=== PATIENT | male | born 1950 | race Caucasian/White ===

== ENCOUNTER → 2016-06-12 | Outpatient (REF) | payer MEDICARE ==
[~2016-06-12] MED LIST: FLUTISP; MULT1TAB8 PO; VITATAB74 PO
[2016-06-12 12:51] LABS: MEAN CORPUSCULAR HEMOGLOBIN 32.7 pg (27.0-33.0); MEAN CORPUSCULAR HGB CONC 33.4 g/dl (32.0-36.5); MEAN CORPUSCULAR VOLUME 97.8 fl (80.0-96.0); RED CELL DISTRIBUTION WIDTH 12.2 % (11.5-14.5); WHITE BLOOD COUNT 4.8 K/mm3 (4.0-10.0)
[2016-06-12 13:08] LABS: FOLATE > 24.0 NG/ML; VITAMIN B12 LEVEL 412 PG/ML
[2016-06-12 13:21] LABS: ALBUMIN 3.8 GM/DL (3.2-5.2); ALBUMIN/GLOBULIN RATIO 1.31 (1.00-1.93); ALKALINE PHOSPHATASE 105 U/L (45-117); ALT/SGPT 37 U/L (12-78); ANION GAP 10 MEQ/L (8-16); AST/SGOT 30 U/L (15-37); BILIRUBIN,TOTAL 0.7 MG/DL (0.2-1.0); BLOOD UREA NITROGEN 16 MG/DL (7-18); CALCIUM LEVEL 8.5 MG/DL (8.8-10.2); CARBON DIOXIDE LEVEL 28 MEQ/L (21-32); CHLORIDE LEVEL 104 MEQ/L (98-107); CHOLESTEROL LEVEL 174 MG/DL (<200); GLOMERULAR FILTRATION RATE > 60.0 (>49); GLUCOSE, FASTING 95 MG/DL (80-110); POTASSIUM SERUM 4.1 MEQ/L (3.5-5.1); SODIUM LEVEL 142 MEQ/L (136-145); TOTAL PROTEIN 6.7 GM/DL (6.4-8.2); TRIGLYCERIDES LEVEL 47 MG/DL (<150)
== END ==
LOC: M SFHCPLAZ 08:10
PROVIDERS: ATTEND Internal Medicine
DX: Z00.00 Encounter for general adult medical examination without abnormal findings (principal); Z98.84 Bariatric surgery status

== ENCOUNTER → 2017-06-13 | Outpatient (REF) | payer MEDICARE ==
[2017-06-13 12:22] LABS: HEMATOCRIT 41.6 % (42.0-52.0); HEMOGLOBIN 13.8 g/dl (14.0-18.0); MEAN CORPUSCULAR HEMOGLOBIN 32.4 pg (27.0-33.0); MEAN CORPUSCULAR HGB CONC 33.2 g/dl (32.0-36.5); MEAN CORPUSCULAR VOLUME 97.7 fl (80.0-96.0); PLATELET COUNT, AUTOMATED 332 10^3/uL (150-450); RED BLOOD COUNT 4.26 10^6/uL (4.30-6.10); RED CELL DISTRIBUTION WIDTH 12.2 % (11.5-14.5); WHITE BLOOD COUNT 6.4 10^3/uL (4.0-10.0)
[2017-06-13 12:50] LABS: ALKALINE PHOSPHATASE 107 U/L (45-117); ALT/SGPT 33 U/L (12-78); ANION GAP 8 MEQ/L (8-16); AST/SGOT 25 U/L (7-37); BILIRUBIN,TOTAL 0.7 MG/DL (0.2-1.0); BLOOD UREA NITROGEN 11 MG/DL (7-18); CALCIUM LEVEL 8.8 MG/DL (8.8-10.2); CARBON DIOXIDE LEVEL 30 MEQ/L (21-32); CHLORIDE LEVEL 101 MEQ/L (98-107); CHOLESTEROL LEVEL 152 MG/DL (<200); CREATININE FOR GFR 0.78 MG/DL (0.70-1.30); GLOMERULAR FILTRATION RATE > 60.0 (>49); GLUCOSE, FASTING 81 MG/DL (70-100); POTASSIUM SERUM 3.9 MEQ/L (3.5-5.1); SODIUM LEVEL 139 MEQ/L (136-145); TRIGLYCERIDES LEVEL 51 MG/DL (<150)
[2017-06-13 12:51] LABS: ALBUMIN 4.1 GM/DL (3.2-5.2); ALBUMIN/GLOBULIN RATIO 1.28 (1.00-1.93); CHOLESTEROL RISK RATIO 2.763 (<5); HDL CHOLESTEROL 55 MG/DL (>40); LDL CHOLESTEROL 86.8 MG/DL (<100); NON-HDL-C 97 MG/DL; TOTAL PROTEIN 7.3 GM/DL (6.4-8.2)
[2017-06-13 12:57] LABS: TOTAL 25(OH) VITAMIN D 34.6 NG/ML (30.0-100.0); VITAMIN B12 LEVEL 809 PG/ML
[2017-06-13 12:59] LABS: FOLATE > 24.0 NG/ML
== END ==
LOC: M SFHCPLAZ 07:50
DX: Z98.84 Bariatric surgery status (principal); E66.3 Overweight
CPT/HCPCS: 82746

== ENCOUNTER → 2018-06-25 | Outpatient (REF) | payer MEDICARE ==
[2018-06-25 10:43] LABS: HEMATOCRIT 41.2 % (42.0-52.0); HEMOGLOBIN 13.6 g/dl (13.5-17.5); MEAN CORPUSCULAR HEMOGLOBIN 31.9 pg (27.0-33.0); MEAN CORPUSCULAR VOLUME 96.5 fl (80.0-96.0); PLATELET COUNT, AUTOMATED 295 10^3/uL (150-450); RED BLOOD COUNT 4.27 10^6/uL (4.30-6.10); WHITE BLOOD COUNT 5.3 10^3/uL (4.0-10.0)
[2018-06-25 10:52] LABS: ALBUMIN 3.8 GM/DL (3.2-5.2); ALT/SGPT 29 U/L (12-78); BILIRUBIN,TOTAL 0.7 MG/DL (0.2-1.0); BLOOD UREA NITROGEN 14 MG/DL (7-18); CALCIUM LEVEL 8.8 MG/DL (8.8-10.2); CARBON DIOXIDE LEVEL 28 MEQ/L (21-32); CHLORIDE LEVEL 104 MEQ/L (98-107); CHOLESTEROL LEVEL 160 MG/DL (<200); CHOLESTEROL RISK RATIO 2.622 (<5); CREATININE FOR GFR 0.82 MG/DL (0.70-1.30); GLOMERULAR FILTRATION RATE > 60.0 (>49); GLUCOSE, FASTING 96 MG/DL (70-100); HDL CHOLESTEROL 61 MG/DL (>40); LDL CHOLESTEROL 91 MG/DL (<100); NON-HDL-C 99 MG/DL; POTASSIUM SERUM 4.2 MEQ/L (3.5-5.1); SODIUM LEVEL 140 MEQ/L (136-145); TOTAL 25(OH) VITAMIN D 40.8 NG/ML (30.0-100.0); TRIGLYCERIDES LEVEL 39 MG/DL (<150)
== END ==
LOC: M SFHCPLAZ 07:51
PROVIDERS: ATTEND Internal Medicine
DX: Z00.00 Encounter for general adult medical examination without abnormal findings (principal); Z98.84 Bariatric surgery status; E66.3 Overweight; E07.9 Disorder of thyroid, unspecified

== ENCOUNTER → 2019-06-25 | Outpatient (REF) | payer MEDICARE ==
[~2019-06-25] MED LIST changes: +FLUT50SP17; -FLUTISP
[2019-06-25 10:07] LABS: HEMATOCRIT 44.5 % (42.0-52.0); HEMOGLOBIN 14.8 g/dl (13.5-17.5); MEAN CORPUSCULAR HEMOGLOBIN 32.6 pg (27.0-33.0); MEAN CORPUSCULAR HGB CONC 33.3 g/dl (32.0-36.5); PLATELET COUNT, AUTOMATED 317 10^3/uL (150-450); RED BLOOD COUNT 4.54 10^6/uL (4.30-6.10); WHITE BLOOD COUNT 5.8 10^3/uL (4.0-10.0)
[2019-06-25 10:42] LABS: ALBUMIN 3.6 GM/DL (3.2-5.2); ALT/SGPT 30 U/L (12-78); BILIRUBIN,TOTAL 0.6 MG/DL (0.2-1.0); BLOOD UREA NITROGEN 12 MG/DL (7-18); CALCIUM LEVEL 8.7 MG/DL (8.8-10.2); CARBON DIOXIDE LEVEL 27 MEQ/L (21-32); CHLORIDE LEVEL 107 MEQ/L (98-107); CHOLESTEROL LEVEL 188 MG/DL (<200); CHOLESTEROL RISK RATIO 3.186 (<5); GLOMERULAR FILTRATION RATE > 60.0 (>49); GLUCOSE, FASTING 110 MG/DL (70-100); HDL CHOLESTEROL 59 MG/DL (>40); LDL CHOLESTEROL 116 MG/DL (<100); NON-HDL-C 129 MG/DL; SODIUM LEVEL 140 MEQ/L (136-145); TOTAL PROTEIN 7.1 GM/DL (6.4-8.2); TRIGLYCERIDES LEVEL 63 MG/DL (<150)
[2019-06-25 10:47] LABS: TOTAL 25(OH) VITAMIN D 41.4 NG/ML (30.0-100.0)
[2019-06-25 10:48] LABS: VITAMIN B12 LEVEL 410 PG/ML
[2019-06-25 10:49] LABS: FOLATE > 24.0 NG/ML
== END ==
LOC: M SFHCPLAZ 07:56
PROVIDERS: ATTEND Internal Medicine
DX: Z12.5 Encounter for screening for malignant neoplasm of prostate (principal); Z98.84 Bariatric surgery status; Z79.899 Other long term (current) drug therapy
CPT/HCPCS: 80053; 80061; 82306; 82607; 82746; 85027; G0103

== ENCOUNTER → 2020-06-12 | Outpatient (REF) | payer MEDICARE ==
[2020-06-12 10:20] LABS: HEMATOCRIT 45.2 % (42.0-52.0); HEMOGLOBIN 14.9 g/dl (13.5-17.5); MEAN CORPUSCULAR HEMOGLOBIN 31.8 pg (27.0-33.0); MEAN CORPUSCULAR VOLUME 96.6 fl (80.0-96.0); PLATELET COUNT, AUTOMATED 330 10^3/uL (150-450); RED BLOOD COUNT 4.68 10^6/uL (4.30-6.10); WHITE BLOOD COUNT 8.3 10^3/uL (4.0-10.0)
[2020-06-12 10:50] LABS: ALBUMIN 3.9 GM/DL (3.2-5.2); ALT/SGPT 31 U/L (12-78); BILIRUBIN,TOTAL 0.7 MG/DL (0.2-1.0); BLOOD UREA NITROGEN 15 MG/DL (7-18); CALCIUM LEVEL 9.1 MG/DL (8.8-10.2); CARBON DIOXIDE LEVEL 29 MEQ/L (21-32); CHLORIDE LEVEL 104 MEQ/L (98-107); CHOLESTEROL LEVEL 175 MG/DL (<200); CHOLESTEROL RISK RATIO 2.777 (<5); CREATININE FOR GFR 0.74 MG/DL (0.70-1.30); GLOMERULAR FILTRATION RATE > 60.0 (>42); GLUCOSE, FASTING 98 MG/DL (70-100); HDL CHOLESTEROL 63 MG/DL (>40); LDL CHOLESTEROL 102 MG/DL (<100); NON-HDL-C 112 MG/DL; SODIUM LEVEL 138 MEQ/L (136-145); TOTAL PROTEIN 7.3 GM/DL (6.4-8.2); TRIGLYCERIDES LEVEL 51 MG/DL (<150)
== END ==
LOC: M PLALAB 08:10
PROVIDERS: ATTEND Internal Medicine
DX: Z00.00 Encounter for general adult medical examination without abnormal findings (principal); Z98.84 Bariatric surgery status; Z11.59 Encounter for screening for other viral diseases
CPT/HCPCS: 36415; 80053; 80061; 85027; G0472

== ENCOUNTER 2021-01-04 10:53 | Inpatient (IN) | payer MEDICARE ==
[~2021-01-04] VITALS: Ht 167.6 cm; Wt 112.0 kg
[2021-01-04 11:31] LABS: BASO % 0.5 % (0.0-1.0); EOS # 0.2 10^3/uL (0.0-0.5); EOS % 2.5 % (0.0-3.0); HEMATOCRIT 45.9 % (42.0-52.0); HEMOGLOBIN 15.5 g/dl (13.5-17.5); LYMPH # 1.2 10^3/uL (1.5-5.0); LYMPH % 18.4 % (24.0-44.0); MEAN CORPUSCULAR HEMOGLOBIN 31.7 pg (27.0-33.0); MEAN CORPUSCULAR HGB CONC 33.8 g/dl (32.0-36.5); MEAN CORPUSCULAR VOLUME 93.9 fl (80.0-96.0); MONO # 0.8 10^3/uL (0.0-0.8); MONO % 12.4 % (2.0-8.0); NEUTROPHILS # 4.3 10^3/uL (1.5-8.5); NEUTROPHILS % 65.9 % (36.0-66.0); RED BLOOD COUNT 4.89 10^6/uL (4.30-6.10); WHITE BLOOD COUNT 6.5 10^3/uL (4.0-10.0)
--- NOTE | 2021-01-04 11:37 | REP ---
INDICATION: CHEST PAIN. COMPARISON: No comparison chest x-ray is available. TECHNIQUE: Portable upright AP chest radiograph. FINDINGS: There is a dextroconvex curvature in the thoracic spine. There is extensive pleuroparenchymal opacity in the left base obscuring the left diaphragm. There is blunting of the left lateral pleural angle. Pleural effusion and some atelectasis suspected. Right lung appears essentially clear. The heart is enlarged pulmonary vasculature is cephalized. The aortic knob is demonstrates an interval calcification which may be displaced. This raises the question of aortic dissection/aneurysm.. No acute bony abnormality. IMPRESSION: Left pleural effusion probably with atelectasis in the left lower lobe. Cardiomegaly with vascular congestion. Question displaced interval calcification in the aortic knob, rule out aortic dissection. Recommend CT aortic angiography. Critical Findings: The critical information above was relayed directly by me by telephone to Deon Welch on 01/04/2021 at 11:32 am with readback verification. <Electronically signed by Dinesh Angeles > 01/04/21 2256
[2021-01-04] MEDS ORDERED: ISOVUE-370 76% 100ML VIAL As Ordered ONE (11:40)
--- NOTE | 2021-01-04 12:14 | REP ---
INDICATION: r/o TAA. COMPARISON: Comparison is made with today's portable chest x-ray. TECHNIQUE: Contrast dose: 100 ML of Isovue [address] technique: Helical scanning is acquired and overlapping 1.5 mm and contiguous 3 mm axial images are reformatted. In addition, maximum intensity projection and multiplanar re-formation images are generated in sagittal and coronal imaging projections. FINDINGS: There is good opacification of the thoracic aorta and there is no evidence of dissection or aneurysm. Similarly, the pulmonary arterial tree is well opacified and there is no evidence of filling defect to suggest pulmonary embolus. There is no evidence of right pleural effusion. There is however a infiltrate in the right upper lobe. There are patchy ground-glass densities in the right lower lobe as well. There is a moderate left pleural effusion in there is atelectasis in the left lower lobe of the lung. No definite endobronchial disease is seen. No hilar mass is observed. No adrenal mass lesion is seen. Patient is status post gastric bypass procedure. There is no pancreatic abnormality. There is a ventral hernia trans Landry omental fat seen at the bottom of the imaging field of view. There are small gallstones in the gallbladder. The spleen is unremarkable. IMPRESSION: There is no CT evidence of aortic aneurysm or pulmonary embolus. No aortic dissection is evident. There is a moderate left pleural effusion with partial atelectasis of the left lower lobe. There is an infiltrate in the right upper lobe suggestive of pneumonia with some patchy areas of increased density in the right lower lobe. Cholelithiasis and ventral hernia. <Electronically signed by Dinesh Angeles > 01/04/21 1212
[2021-01-04 12:46] LABS: BLOOD UREA NITROGEN 15 MG/DL (7-18); CALCIUM LEVEL 8.6 MG/DL (8.8-10.2); CARBON DIOXIDE LEVEL 22 MEQ/L (21-32); CHLORIDE LEVEL 109 MEQ/L (98-107); CK-MB VALUE MASS 1.1 NG/ML (<3.6); CPK CREATINE PHOSPHOKINASE 83 U/L (39-308); GLOMERULAR FILTRATION RATE > 60.0 (>42); GLUCOSE, FASTING 103 MG/DL (70-100); MB/CK RELATIVE INDEX 1.33 (< OR =4); POTASSIUM SERUM 3.6 MEQ/L (3.5-5.1); SODIUM LEVEL 141 MEQ/L (136-145); TROPONIN I < 0.02 NG/ML (< 0.10)
[2021-01-04 12:47] LABS: NT-PRO BNP 237 PG/ML (<125)
[2021-01-04] MEDS ORDERED: GI COCKTAIL 50ML BTL(HYOSCYAMINE/MAALOX/LIDOCAINE VISCOUS)(1:3:1) PO ONE (13:35)
[2021-01-04] MEDS ORDERED: ONDANSETRON 4MG/2ML VIAL IV ONE (13:40)
[2021-01-04 15:06] LABS: RSV AMPLIFICATION NEGATIVE (NEGATIVE)
[2021-01-04 16:09] LABS: LDH LACTATE DEHYDROGENASE 268 U/L (87-241)
[2021-01-04] MEDS ORDERED: B-12100021 PO (16:15)
[2021-01-04] MEDS ORDERED: VIAC1CHW PO (16:15)
[2021-01-04] MEDS ORDERED: VITMTA PO (16:15)
[2021-01-04] MEDS ORDERED: VITA200020 PO (16:15)
[2021-01-04] MEDS ORDERED: HOME MED LIST COMPLETE! XX SCH (16:15)
[2021-01-04 16:16] LABS: PLTBLUE- EDTA FREE CALC 301 K/mm3 (172-450); PLTBLUE- EDTA FREE MACHINE 274 10^3/uL (172-450)
--- NOTE | 2021-01-04 16:22 | HPEPDOC ---
[facility] Medical History & Physical Date of Admission Jan 04, 2021 Date of Service: Jan 04, 2021 Primary Care Physician: Feliberto Gamble Attending Physician: GEOFF PETERSEN DO History and Physical CHIEF COMPLAINT: Chest pain HISTORY OF PRESENT ILLNESS: Patient is a 70-year-old male presented to the hospital with complaints of chest pain. Patient described the chest pain being on the side of his ribs sometimes and also sometimes in the front of his chest. Patient says this went on for the past week or so. Patient also reports that he came into the emergency department because he has been having more shortness of breath over the past 2 to 3 days. This is worse with exertion. Patient has been coughing up adrienne colored sputum for the past 2 to 3 days as well. Patient states he had a lot of difficulty sleeping yesterday due to the pain. Patient denies any fevers or chills. Patient is also complaining some abdominal pain and is noticed that he been having some constipation over the past few days. Patient denies having any upper respiratory-like symptoms prior to the onset of this shortness of breath and cough. PAST MEDICAL HISTORY: 1. Allergic rhinitis. 2. Bariatric surgery status. PAST SURGICAL HISTORY: 1. Appendectomy. 2. Bariatric surgery 2002. 3. Multiple colonoscopies. SOCIAL HISTORY: Patient used to smoke cigars but has not smoked in 30 years. He used to smoke a daily cigar. Patient denies alcohol use or illicit drug use. 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 Patient's mother at 94. ALLERGIES: Please see below. REVIEW OF SYSTEMS: General: Patient denies fevers HEENT: Patient denies headaches Cardiovascular: Patient reports chest pain as above Respiratory: Patient reports shortness of breath and cough as above GI: Patient reports abdominal pain, nausea, and constipation as above : Patient denies increased frequency or pain with urination Extremities: Patient denies swelling or pain in extremities Neurological: Patient denies numbness or tingling in legs Skin: Patient denies any new rashes or lesions. Hematologic: Patient denies any easy bruising. Lymphatic: Patient denies any lumps lumps or bumps in neck, axilla, or groin HOME MEDICATIONS: Please see below. PHYSICAL EXAMINATION: VITAL SIGNS: Temperature 96.2, pulse 91, respiratory rate 18, blood pressure 154/85, pulse oximetry 96% on 2 L via nasal cannula General: Alert and oriented male patient who was sitting up in bed when I walked in. Patient did not appear to be in any acute distress. HEENT: Normocephalic, atraumatic, moist mucous membranes. Neck: No lymphadenopathy or thyromegaly Cardiac: Regular rate and rhythm, no murmurs, normal S1, normal S2 Pulm: And expiratory wheezing heard scattered throughout the lung portillo, no breath sounds heard in the lower two thirds of the chest on the left, rales heard in the upper one third on the left side. Tympanic to percussion on the right side, dull to percussion in the lower two thirds in the left side of the chest with tympany to percussion in the upper third Abd: Nondistended, mild tenderness in the left upper quadrant, no rebound tenderness, normal bowel sounds Ext: No edema bilateral lower extremities Neuro: Patient was able to move all 4 extremities on command and reported equal sensation light touch in all 4 extremities. Skin: Skin of the head, neck, upper and lower extremities was examined did not show any evidence of rash or wounds. LABORATORY DATA: See below. IMAGING: Chest x-ray performed on 01/04/2021 was reported to show left pleural effusion probably with atelectasis in the left lower lobe. Cardiomegaly with vascular congestion. Question displaced interval calcification of the aortic knob, rule out aortic dissection. Recommend CT aortic angiography. CT angiogram of the chest performed on 12/08/2020 was aborted show there is no CT evidence of aortic aneurysm or pulmonary embolus. No aortic dissection is evident. There is moderate left pleural effusion with partial atelectasis left lower lobe. There is an infiltrate in the right upper lobe suggestive of pneumonia with some patchy areas of increased density in the right lower lobe. Cholelithiasis with ventral hernia. MICROBIOLOGY: Please see below. ASSESSMENT: Patient is a 70-year-old male who presents to the hospital with chest pain was found to have a moderate-sized left pleural effusion with right- sided infiltrates.. . PLAN: 1. Pleural effusion with atelectasis of the left lung. Thoracentesis will be performed and pigtail catheter will be left in performed by interventional radiology. Patient will be started on antibiotics at this time. Orders have been placed to analyze the fluid in order to determine the cause of the patient's pleural effusion. Patient is currently stable on 2 L of oxygen. Pulmonary will be consulted. 2. Pneumonia. Patient has infiltrates in the right lung per CT scan. Once the pleural effusion has been drained, repeat chest x-ray to be performed in order to evaluate the left lung for possible pneumonia or causative agent for the patient's pleural effusion. Patient will be started on IV Zosyn for pneumonia due to the pleural effusion and need for coverage for gram-negative and anaerobic bacteria. Procalcitonin has been ordered. Pleural fluid cultures have been ordered. 3. Constipation. Patient will be started on docusate twice a day and reported soft bowel movements. This may be the cause of the patient's abdominal pain. Patient's abdominal pain feels to be secondary to the patient's pleural effusion. Once drained, we will reassess. Patient's abdomen does not feel distended on examination nor is her any rebound tenderness. 4. DVT prophylaxis: Teds and sequentials 5. CODE STATUS: Full code Disposition: Patient reviewed in the medical surgical floor. I expect the patient be discharged after greater than or equal to 2 midnights. Vital Signs Vital Signs Date Time Temp Pulse Resp B/P (MAP) Pulse Ox O2 Delivery O2 Flow Rate FiO2 01/04/21 15:30 91 18 154/85 (108) 96 Nasal Cannula 2.0 01/04/21 10:54 96.2 Laboratory Data Labs 24H Laboratory Tests 2 01/04/21 11:19: Immature Granulocyte % (Auto) 0.3, Neutrophils (%) (Auto) 65.9, Lymphocytes (%) (Auto) 18.4L, Monocytes (%) (Auto) 12.4H, Eosinophils (%) (Auto) 2.5, Basophils (%) (Auto) 0.5, Neutrophils # (Auto) 4.3, Lymphocytes # (Auto) 1.2L, Monocytes # (Auto) 0.8, Eosinophils # (Auto) 0.2, Basophils # (Auto) 0.0, Nucleated Red Blood Cells % (auto) 0.0 01/04/21 12:14: Anion Gap 10, Glomerular Filtration Rate > 60.0, Calcium Level 8.6L, Lactate Dehydrogenase 268H, Total Creatine Kinase 83, Creatine Kinase MB 1.1, Creatine Kinase MB Relative Index 1.33, Troponin I < 0.02, SZ-Dec-O-Type Natriuretic Peptide 237H 01/04/21 14:03: Coronavirus (COVID-19)(PCR) NEGATIVE, Influenza Type A (RT-PCR) NEGATIVE, Inf luenza Type B (RT-PCR) NEGATIVE, Respiratory Syncytial Virus (PCR) NEGATIVE CBC/BMP Laboratory Tests 01/04/21 11:19 01/04/21 12:14 Home Medications Scheduled Calcium Carb/Vitamin D3/Vit K1 (Viactiv 650 mg-12.5 Mcg Chew) 1 Each Tab.chew, 1 TAB PO BID Cholecalciferol (Vitamin D3) (Vitamin D3) 50 Mcg Capsule, 50 MCG PO BID Cyanocobalamin (Vitamin B-12) (B-12) 1,000 Mcg Tablet, 1,000 MCG PO DAILY Multivitamins (Thera M Plus Tablet) 1 Each Tablet, 1 TAB PO BID Allergies Coded Allergies: No Known Allergies (Unverified , 01/04/21) A-FIB/CHADSVASC A-FIB History Current/History of A-Fib/PAF?: No GEOFF PETERSEN DO Jan 04, 2021 16:21
[2021-01-04 16:31] LABS: INR 1.01; PROTHROMBIN TIME 13.7 SECONDS (12.7-14.5)
[2021-01-04 16:32] LABS: PARTIAL THROMBOPLASTIN TIME 25.4 SECONDS (25.9-37.0)
[2021-01-04] MEDS ORDERED: KETOROLAC 30 MG/ML 1ML VIAL IV PRN (16:55)
[2021-01-04 18:05] VITALS: BP 158/96
[2021-01-04] MEDS: ACETAMINOPHEN TAB 650MG DOSE (2X325MG) PO PRN (18:17)
[2021-01-04] MEDS: PIPERACILLIN/TAZOBACTAM SOD 4.5 GM in D5W MINI-BAG PLUS 50 ML IV SCH ×2 (18:17→23:45)
[2021-01-04 18:39] VITALS: O2SAT 94
[2021-01-04] MEDS: PERCOCET 5MG/325MG TAB PO PRN (18:54)
[2021-01-04 18:59] VITALS: BP 152/96
[2021-01-04] MEDS: DOCUSATE SODIUM 100MG CAPSULE PO SCH (20:25)
--- NOTE | 2021-01-04 21:37 | ECGEPIP ---
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
[2021-01-04 22:00] VITALS: BP 135/79
[2021-01-05] MEDS: PERCOCET 5MG/325MG TAB PO PRN (03:46)
[2021-01-05] MEDS: ONDANSETRON 4MG/2ML VIAL IV PRN (03:46)
[2021-01-05] MEDS: PIPERACILLIN/TAZOBACTAM SOD 4.5 GM in D5W MINI-BAG PLUS 50 ML IV SCH ×2 (05:51→12:13)
[2021-01-05 06:00] VITALS: BP 155/90
[2021-01-05 06:49] LABS: HEMATOCRIT 42.6 % (42.0-52.0); HEMOGLOBIN 14.3 g/dl (13.5-17.5); MEAN CORPUSCULAR HEMOGLOBIN 32.1 pg (27.0-33.0); MEAN CORPUSCULAR HGB CONC 33.6 g/dl (32.0-36.5); MEAN CORPUSCULAR VOLUME 95.5 fl (80.0-96.0); PLATELET COUNT, AUTOMATED 380 10^3/uL (150-450); RED BLOOD COUNT 4.46 10^6/uL (4.30-6.10); WHITE BLOOD COUNT 8.9 10^3/uL (4.0-10.0)
[2021-01-05 07:15] LABS: BLOOD UREA NITROGEN 13 MG/DL (7-18); CALCIUM LEVEL 8.6 MG/DL (8.8-10.2); CARBON DIOXIDE LEVEL 25 MEQ/L (21-32); CHLORIDE LEVEL 106 MEQ/L (98-107); CREATININE FOR GFR 0.74 MG/DL (0.70-1.30); GLOMERULAR FILTRATION RATE > 60.0 (>42); GLUCOSE, FASTING 95 MG/DL (70-100); MAGNESIUM LEVEL 2.3 MG/DL (1.8-2.4); SODIUM LEVEL 140 MEQ/L (136-145)
[2021-01-05] MEDS: DOCUSATE SODIUM 100MG CAPSULE PO SCH ×2 (09:01→20:19)
[2021-01-05] MEDS ORDERED: LIDOCAINE 1% MDV 20ML VIAL As Ordered ONE (09:29)
--- NOTE | 2021-01-05 10:13 | REP ---
INDICATION: POST LEFT THORA, 2 VIEW. COMPARISON: Comparison study January 04, 2021. TECHNIQUE: PA and lateral chest x-ray. Post left thoracentesis and 2 thoracostomy. FINDINGS: A pigtail drainage catheter is seen in place in the left posterior pleural angle. There is improvement in the effusion on the left although persistent blunting remains. There is no evidence of pneumothorax. Cardiomediastinal silhouette is unchanged. Vascular and interstitial markings are a little prominent on the right diffusely. There is mild gaseous distention of the colon. IMPRESSION: Improved left pleural effusion post left drainage tube placement. No complication seen. <Electronically signed by Dinesh Angeles > 01/05/21 3238
[2021-01-05 10:42] LABS: PH BODY FLUID 7.495 UNITS (NOT ESTABLISHED); SOURCE, BODY FLUID pH PLEURAL
[2021-01-05 10:51] LABS: APPEARANCE, BODY FLUID CLOUDY (CLEAR); PLEURAL FL COLOR YELLOW (COLORLESS); SOURCE, BODY FLUID PLEURAL
[2021-01-05 11:22] LABS: AMYLASE, BODY FLUID 244 U/L (NOT ESTABLISHED); CHOLESTEROL, BODY FLUID 76 MG/DL (NOT ESTABLISHED); LDH, BODY FLUID 256 U/L (NOT ESTABLISHED); SOURCE, BODY FLUID ALBUMIN PLEURAL; SOURCE, BODY FLUID AMYLASE PLEURAL; SOURCE, BODY FLUID GLUCOSE PLEURAL; SOURCE, BODY FLUID LDH PLEURAL; SOURCE, BODY FLUID TOT PROTEIN PLEURAL; TOTAL PROTEIN, BODY FLUID 4.4 G/DL (NOT ESTABLISHED)
[2021-01-05 11:23] LABS: SOURCE, BODY FLUID CHOL PLEURAL; SOURCE, BODY FLUID TRIG PLEURAL; TRIGLYCERIDE, BODY FLUID 10 MG/DL (NOT ESTABLISHED)
--- NOTE | 2021-01-05 12:53 | CR.PDOC ---
General Date of Consultation: Jan 05, 2021 Referring Provider: GEOFF PETERSEN DO Attending Physician: A Consultation REASON FOR CONSULTATION/CHIEF COMPLAINT: Shortness of breath. HISTORY OF PRESENT ILLNESS: 70-year-old male with no significant past medical history presents to the hospital for 1 to 2 weeks of generalized body pains, dyspnea on exertion, orthopnea and productive cough of dark brown to dark red- tinged sputum. He says that only intermittently does he have blood-tinged sputum. He denied any fever, chills, night sweats. He endorses weight gain over the past year but cannot quantify. Before this he has never had any other medical problems or hospitalizations. In the ED he was not in any distress. He was hemodynamically stable, he was found to have a large left-sided pleural effusion on chest x-ray. This morning he had a left-sided chest tube placed by IR. So far it has drained approximately 1600 cc of yellow fluid. ALLERGIES: Please see below. HOME MEDICATIONS: Please see below. PAST MEDICAL HISTORY: 1. Allergic rhinitis. PAST SURGICAL HISTORY: 1. Appendectomy 2. Bariatric surgery FAMILY HISTORY: Father of heart disease. No lung problems in the family. SOCIAL HISTORY: He is a former cigar smoker, he quit about 30 years ago he never smoked cigaret [place]. He does not use any alcohol or illicit drugs. 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 REVIEW OF SYSTEMS: CONSTITUTIONAL: No fever. No chills. No dizziness. No weakness. EYES: No pain, erythema, or discharge. No blurring of vision. ENT: No sore throat, URI symptoms. No epistaxis. No tinnitus. CARDIOVASCULAR: No chest pain. No palpitations. No lower extremity edema. RESPIRATORY: See HPI GASTROINTESTINAL: No nausea, vomiting, diarrhea. No pain. No bloating. No melena. GENITOURINARY: No frequency, urgency, nocturia. No hematuria or dysuria. MUSCULOSKELETAL: Generalized aches INTEGUMENTARY: No swelling. No bruising. No contusions. No abrasions. No lympha ngitis. NEUROLOGIC: No headache. No neck pain. No numbness or tingling of the extremities. No weakness. PSYCHIATRIC: No confusion. ENDOCRINE: No fatigue. No weakness. No history of thyroid, diabetes or adrenal problems. HEMATOLOGICAL: No bleeding. No petechiae. No bruising. PHYSICAL EXAMINATION: VITAL SIGNS: Please see below. GENERAL APPEARANCE: Alert and awake . HEENT: no thyromegaly, trachea midline . RESPIRATORY: CTA B/L, good air entry. He has a left-sided chest tube in place attached to a vacuum container. CARDIOVASCULAR: +s1 s2, no murmurs . ABDOMEN: nontender, not distended . EXTREMITIES: no edema or erythema . NEUROLOGICAL: no sensory or motor deficits, orientedx3 . LABORATORY DATA: Please see below. ASSESSMENT: 1. Large left sided exudative pleural effusion status post chest tube drainage. Symptomatically improved and improved aeration on repeat x-ray. 2. Clinically there is no evidence of pneumonia or complicated parapneumonic effusion on pleural fluid analysis. 3. There are right lung predominantly upper lobe groundglass opacities which are nonspecific. May represent an atypical pneumonia bacterial vs viral. PLAN: * Follow-up pleural fluid cytology. * Repeat CT chest noncontrast * D/C Zosyn, can start Rocephin and azithromycin for now for community-acquired coverage. * Keep chest tube in for today and if less than 200 cc of drainage in the next 24 hours will likely DC the chest tube. * Patient does not need to wait in the hospital for the results of the pleural fluid analysis. * Anticipate to discharge home tomorrow after removal of the chest tube and with outpatient pulmonary follow-up Vital Signs/I&O Vital Signs Date Time Temp Pulse Resp B/P (MAP) Pulse Ox O2 Delivery O2 Flow Rate FiO2 01/05/21 10:06 90 18 97 Nasal Cannula 2.0 01/05/21 09:20 98.5 01/05/21 06:00 155/90 (111) I&O- Last 24 Hours up to 6 AM 01/05/21 06:00 Intake Total 1200 ml Balance 1200 ml Laboratory Data Labs 24H Laboratory Tests 2 01/04/21 14:03: Coronavirus (COVID-19)(PCR) NEGATIVE, Influenza Type A (RT-PCR) NEGATIVE, Influenza Type B (RT-PCR) NEGATIVE, Respiratory Syncytial Virus (PCR) NEGATIVE 01/05/21 05:50: Nucleated Red Blood Cells % (auto) 0.0, Anion Gap 9, Glomerular Filtration Rate > 60.0, Calcium Level 8.6L, Magnesium Level 2.3 01/05/21 09:50: Body Fluid pH 7.495, Body Fluid pH Source PLEURAL, Body Fluid WBC (Auto) 1062H, Body Fluid RBC (Auto) 2, Body Fluid Mononuclear Cells % Auto 98.5H, Fluid Polymorphonuclear Cell % Auto 1.5H, Body Fluid Glucose Source PLEURAL, Body Fluid Glucose 58, Body Fluid Protein Source PLEURAL, Body Fluid Total Protein 4 .4, Body Fluid Albumin Source PLEURAL, Body Fluid Albumin 2.3, Body Fluid LDH Source PLEURAL, Body Fluid Lactate Dehydrogenase 256, Body Fluid Amylase Source PLEURAL, Body Fluid Amylase 244, Body Fluid Cholesterol 76, Body Fluid Cholesterol Source PLEURAL, Body Fluid Triglyceride Source PLEURAL, Body Fluid Triglycerides 10, Pleural Fluid Source PLEURAL, Pleural Fluid Color YELLOW, Pleural Fluid Appearance CLOUDY CBC/BMP Laboratory Tests 01/05/21 05:50 Microbiology Microbiology 01/05/21 Fungal Smear, Received Pending 01/05/21 Fungal Culture, Received Pending 01/05/21 Gram Stain, Received Pending 01/05/21 Anaerobic Culture, Received Pending 01/05/21 Body Fluid Culture, Received Pending Allergies Coded Allergies: No Known Allergies (Unverified , 01/04/21) Home Medications Scheduled Calcium Carb/Vitamin D3/Vit K1 (Viactiv 650 mg-12.5 Mcg Chew) 1 Each Tab.chew, 1 TAB PO BID, (Reported) Cholecalciferol (Vitamin D3) (Vitamin D3) 50 Mcg Capsule, 50 MCG PO BID, (Reported) Cyanocobalamin (Vitamin B-12) (B-12) 1,000 Mcg Tablet, 1,000 MCG PO DAILY, (Reported) Multivitamins (Thera M Plus Tablet) 1 Each Tablet, 1 TAB PO BID, (Reported) TYLER THOMPSON MD Jan 05, 2021 12:53
[2021-01-05 13:44] VITALS: O2SAT 96
[2021-01-05 14:00] VITALS: BP 135/91
[2021-01-05] MEDS ORDERED: AZITHROMYCIN INJ 500 MG, VIAL MATE ADAPTER 1 EACH in NS 250 ML IV SCH (14:00)
--- NOTE | 2021-01-05 14:03 | REP ---
INDICATION: fup pleural effusion COMPARISON: 01/04/2021 the only prior a CT angio chest TECHNIQUE: Standard helical technique without intravenous contrast administration. This causes exam limitations. FINDINGS: There is artifact obscuring the detail in the mediastinum. There is evidence of multiple borderline possibly enlarged mediastinal lymph nodes difficult to evaluate due to the artifact. There is no gross hilar adenopathy on this limited non-contrast enhanced exam. There is a left-sided pigtail catheter which has evacuated the previously present left-sided pleural effusion. The imaged upper abdomen and imaged osseous structures are unchanged. Evaluation of the lung portillo again shows patchy bilateral airspace opacities. These have increased in left lower lobe since the left lung is been re-expanded due to evacuation of the pleural effusion. There is a tiny left pneumothorax. There is right middle lobe spiculated nodule which measures 1.3 cm. This was for the most part obscured by respiratory motion artifact on the prior exam. IMPRESSION: 1. Evacuated left pleural effusion. 2. Abnormal bilateral lung field airspace opacities correlate clinically. 3. Spiculated right middle lobe nodule as described above. Neoplasm is suspected. According to the revised Fleischner society criteria PET-CT is recommended. 4. Probable adenopathy as described above. 5. There is a tiny left pneumothorax <Electronically signed by Oscar Estes > 01/05/21 2206
[2021-01-05] MEDS ORDERED: PREVNAR 13 VACCINE SYRINGE IM ONE (15:00)
[2021-01-05] MEDS ORDERED: cefTRIAXone SOD 2 GM in D5W MINI-BAG PLUS 50 ML IV SCH (15:00)
--- NOTE | 2021-01-05 15:31 | IPNPDOC ---
Text Note Date of Service The patient was seen on 01/05/21. NOTE Subjective: Patient is a 70-year-old male presented to hospital with complaints of chest pain. Patient was found to have a moderate left-sided pleural effusion. Patient did well with pain medication overnight and she got some sleep for stone few days according to the patient. Patient is still mildly short of breath although his effusion has not been drained by the time I saw him this morning. Patient was otherwise doing well. Review of systems: General: Patient denies fevers HEENT: Patient denies headaches Cardiovascular: Patient denies chest pain Respiratory: Patient reported shortness of breath as above GI: Patient denies abdominal pain, nausea, vomiting, diarrhea : Patient denies increased frequency or pain with urination Extremities: Patient denies swelling or pain in extremities Neurological: Patient denies numbness or tingling in legs Physical exam: Vitals: See below General: Alert and oriented male patient who was sitting the bedside chair with nasal cannula oxygen in place when I walked in. Patient not appear to be in any acute distress. HEENT: Normocephalic, atraumatic, moist mucous membranes. Neck: No lymphadenopathy or thyromegaly Cardiac: Regular rate and rhythm, no murmurs, normal S1, normal S2 Pulm: Right lung was clear to auscultation. Left lung shows rales in the upper lung portillo with diminished breath sounds in the lower lung portillo. Dullness to percussion two thirds of the way up the left chest. Abd: Nondistended, nontender to palpation, normal bowel sounds Ext: No edema bilateral lower extremities Labs: See below Imaging: Post biopsy chest x-ray performed on 1020 is reported to improve left pleural effusion post left drainage tube placement. No complications seen. CT scan of the chest without contrast on 01/05/2021 is reported to show evacuated left pleural effusion. Abnormal bilateral lung portillo airspace opacities correlate clinically. Spiculated right middle lobe nodule measuring 1.3 cm which is for the most part of secured by respiratory motion artifact on the prior exam. Neoplasm is suspected. According to the revised Fleischner Society criteria PET CT is recommended. Probable adenopathy with possibly enlarged mediastinal lymph nodes that are difficult to evaluate due to artifact. There is a tiny left pneumothorax. Assessment/plan: 70-year-old male presents the hospital with chest pain was found to have a moderate-sized left pleural effusion with right-sided infiltrates. 1. Pleural effusion with atelectasis of the left lung. Thoracentesis was performed today and appears to be an exudative effusion although this does not appear to be an empyema. Patient will be placed on ceftriaxone and azithromycin for community-acquired pneumonia coverage. We will continue to monitor. 2. Pneumonia. Antibiotics as above. Pleural fluid fluid cultures have been ordered. We will continue to monitor. 3. Constipation. Patient was started on docusate twice a day until reported soft bowel movements. 4. Lung mass. Patient appears to have a lung mass on the right lung which will need further work-up. DVT Prophylaxis: Teds and sequentials Disposition: Pending clinical improvement VS,Keyanna, I+O VS, Keyanna, I+O Laboratory Tests 01/05/21 05:50 Vital Signs Date Time Temp Pulse Resp B/P (MAP) Pulse Ox O2 Delivery O2 Flow Rate FiO2 01/05/21 13:44 96 Nasal Cannula 2.0 01/05/21 10:06 90 18 01/05/21 09:20 98.5 01/05/21 06:00 155/90 (111) I&O- Last 24 Hours up to 6 AM 01/05/21 06:00 Intake Total 1200 ml Balance 1200 ml GEOFF PETERSEN DO Jan 05, 2021 15:31
--- NOTE | 2021-01-05 15:37 | REP ---
INDICATION: left pleural effusion, please leave pigtail cath. COMPARISON: None. TECHNIQUE: The procedure was performed under the direct supervision of Dr. Angeles. The risks and benefits of the procedure were explained to the patient and informed consent was obtained. The left pleural effusion was localized using ultrasound guidance. The skin was prepped and draped in a sterile fashion. 6 mL of 1% lidocaine was used as a local anesthetic. Using ultrasound guidance a 10 [place] skater APDL catheter was inserted using trocar technique. 100 mL of yellow fluid was withdrawn and sent to the lab for analysis. The catheter was affixed to the skin and a sterile dressing was applied. The catheter was connected to a pleura vac. The patient tolerated the procedure well and there were no immediate complications. FINDINGS: None IMPRESSION: Ultrasound guidance for left thoracentesis with catheter placement. <Electronically signed by Cali Doe > 01/05/21 1518 <Electronically signed by Dinesh Angeles > 01/05/21 [id number]
[2021-01-05] MEDS: ACETAMINOPHEN TAB 650MG DOSE (2X325MG) PO PRN (20:19)
[2021-01-05 21:00] VITALS: O2SAT 95
[2021-01-05 22:00] VITALS: BP 155/90
[2021-01-06] MEDS: ONDANSETRON 4MG/2ML VIAL IV PRN (04:38)
[2021-01-06 06:00] VITALS: BP 154/89
[2021-01-06 07:20] LABS: HEMATOCRIT 46.3 % (42.0-52.0); HEMOGLOBIN 15.6 g/dl (13.5-17.5); MEAN CORPUSCULAR HGB CONC 33.7 g/dl (32.0-36.5); MEAN CORPUSCULAR VOLUME 94.9 fl (80.0-96.0); PLATELET COUNT, AUTOMATED 414 10^3/uL (150-450); RED BLOOD COUNT 4.88 10^6/uL (4.30-6.10); WHITE BLOOD COUNT 8.5 10^3/uL (4.0-10.0)
[2021-01-06 07:45] LABS: BLOOD UREA NITROGEN 14 MG/DL (7-18); CALCIUM LEVEL 8.6 MG/DL (8.8-10.2); CARBON DIOXIDE LEVEL 25 MEQ/L (21-32); CHLORIDE LEVEL 106 MEQ/L (98-107); CREATININE FOR GFR 0.61 MG/DL (0.70-1.30); GLOMERULAR FILTRATION RATE > 60.0 (>42); GLUCOSE, FASTING 88 MG/DL (70-100); MAGNESIUM LEVEL 2.2 MG/DL (1.8-2.4); POTASSIUM SERUM 3.8 MEQ/L (3.5-5.1); SODIUM LEVEL 140 MEQ/L (136-145)
[2021-01-06] MEDS: DOCUSATE SODIUM 100MG CAPSULE PO SCH (08:42)
[2021-01-06 09:00] VITALS: O2SAT 95
--- NOTE | 2021-01-06 09:22 | IPNPDOC ---
Subjective Date Seen The patient was seen on 01/06/21. Subjective Chief Complaint/HPI Seen and examined at bedside patient. He feels much improved since when he came in. He only complains of constipation. He denies any shortness of breath. No cough, hemoptysis, fever. His chest tube had about 230 cc output in the last shift. Objective Physical Examination General Exam: Positive: Alert, No Acute Distress Eye Exam: Positive: PERRLA, Conjunctiva & lids normal, EOMI; Negative: Sclera icteric ENT Exam: Positive: Atraumatic, Mucous membr. moist/pink, Pharynx Normal Neck Exam: Positive: Supple; Negative: JVD, thyromegaly Chest Exam: Positive: Clear to auscultation (Right base crackles. Left-sided chest tube in place attached to drainage device.) Heart Exam: Positive: Rate Normal, Regular Rhythm, Normal S1, Normal S2; Negative: Murmurs, Rubs Abdomen Exam: Positive: Normal bowel sounds, Soft; Negative: Tenderness, Hepatospenomegaly Male Exam: Positive: Normal Genital Exam Extremity Exam: Positive: Normal pulses; Negative: Clubbing, Cyanosis, Edema Skin Exam: Positive: Nl turgor and temperature; Negative: Rash, Breakdown Neuro Exam: Positive: Normal Gait, Normal Speech, Cranial Nerves 3-12 NL, Reflexes 2+ Assessment /Plan Assessment ASSESSMENT: 1. Large left sided exudative pleural effusion status post chest tube drainage. Symptomatically improved and improved aeration on repeat x-ray. 2. Clinically there is no evidence of pneumonia or complicated parapneumonic effusion on pleural fluid analysis. 3. There are bilateral groundglass opacities which are nonspecific. May represent an atypical pneumonia bacterial vs viral. 4. Right middle lobe spiculated nodule 1.3 cm associated with mildly enlarged mediastinal lymph nodes. This is suspicious for malignancy. PLAN: * Will remove chest tube today * Follow-up pleural fluid cytology. * Would complete course of azithromycin for 5 days * From pulmonary standpoint he does not need to wait in the hospital for the results of his pleural fluid analysis. He can be discharged home on antibiotics and he needs an outpatient pulmonary follow-up with me in 1 week to go over the cytology and also assess for any reaccumulation of pleural effusion. * Titrate off oxygen as tolerated * DVT prophylaxis Plan/VTE VTE Prophylaxis Ordered?: Yes VS, I&O, 24H, Fishbone Vital Signs/I&O Vital Signs Date Time Temp Pulse Resp B/P (MAP) Pulse Ox O2 Delivery O2 Flow Rate FiO2 01/06/21 06:00 97.9 90 18 154/89 (110) 95 Nasal Cannula 2.0 I&O- Last 24 Hours up to 6 AM 01/06/21 06:00 Intake Total 1110 ml Output Total 1985 ml Balance -875 ml Laboratory Data 24H LABS Laboratory Tests 2 01/05/21 09:50: Body Fluid pH 7.495, Body Fluid pH Source PLEURAL, Body Fluid WBC (Auto) 1062H, Body Fluid RBC (Auto) 2, Body Fluid Mononuclear Cells % Auto 98.5H, Fluid Polymorphonuclear Cell % Auto 1.5H, Body Fluid Glucose Source PLEURAL, Body Fluid Glucose 58, Body Fluid Protein Source PLEURAL, Body Fluid Total Protein 4.4, Body Fluid Albumin Source PLEURAL, Body Fluid Albumin 2.3, Body Fluid LDH Source PLEURAL, Body Fluid Lactate Dehydrogenase 256, Body Fluid Amylase Source PLEURAL, Body Fluid Amylase 244, Body Fluid Cholesterol 76, Body Fluid Cholesterol Source PLEURAL, Body Fluid Triglyceride Source PLEURAL, Body Fluid Triglycerides 10, Pleural Fluid Source PLEURAL, Pleural Fluid Color YELLOW, Pleural Fluid Appearance CLOUDY 01/06/21 05:58: Nucleated Red Blood Cells % (auto) 0.0, Anion Gap 9, Glomerular Filtration Rate > 60.0, Calcium Level 8.6L, Magnesium Level 2.2 CBC/BMP Laboratory Tests 01/06/21 05:58 Microbiology Microbiology 01/05/21 Fungal Smear, Received Pending 01/05/21 Fungal Culture, Received Pending 01/05/21 Gram Stain - Final, Resulted 01/05/21 Anaerobic Culture, Resulted Pending 01/05/21 Body Fluid Culture, Received Pending TYLER THOMPSON MD Jan 06, 2021 09:22
--- NOTE | 2021-01-06 09:25 | REP ---
INDICATION: post thoracentesis x-ray. COMPARISON: Comparison chest x-ray January 05, 2021. TECHNIQUE: Two views.. FINDINGS: A left pigtail catheter remains in place posterolaterally position in the pleural angle. There is continued improvement in the left sided effusion and in aeration in the left lung. Some residual platelike atelectasis is seen in the left base. There is a tiny amount of pleural air visible in the retrosternal clear space on the lateral radiograph. No other evidence of pneumothorax is appreciated. There is some platelike atelectasis in the right lower lobe. Cardiomediastinal silhouette is unremarkable. IMPRESSION: Continued improvement in the left pleural effusion post tube thoracostomy. Mild bibasilar platelike atelectasis. <Electronically signed by Dinesh Angeles > 01/06/21 [id number]
[2021-01-06] MEDS ORDERED: AZITHROMYCIN 250MG TABLET PO SCH (12:00)
--- NOTE | 2021-01-06 12:04 | REP ---
INDICATION: post chest tube removal. COMPARISON: Comparison chest x-ray is from 8:44 a.m. on this date. TECHNIQUE: Portable chest x-ray. 11:20 a.m. film. Single-view. FINDINGS: Left chest tube has been removed. There is platelike atelectasis again noted in the left base. The pleural angles are sharp. Cardiomediastinal silhouette is unremarkable. There is no visible pneumothorax. IMPRESSION: Left chest tube withdrawn. <Electronically signed by Dinesh Angeles > 01/06/21 1200
[2021-01-06] MEDS ORDERED: MIRALAX *UNIT DOSE* 17GM PACKET PO SCH (13:15)
[2021-01-06] MEDS ORDERED: SENNA 8.6 MG TAB (SENOKOT) PO SCH (13:15)
[2021-01-06] MEDS ORDERED: MIRA1POW3 PO (16:05)
[2021-01-06] MEDS ORDERED: AZIT-12 PO (16:05)
[2021-01-06] MEDS ORDERED: DOCU100C16 PO (16:05)
[2021-01-06] MEDS ORDERED: SENN18TA PO (16:05)
--- NOTE | 2021-01-06 16:40 | DS.PDOC ---
Discharge Summary General Date of Admission Jan 04, 2021 at 15:40 Date of Discharge 01/06/2021 Primary Care Physician: Feliberto Gamble Attending Physician: GEOFF PETERSEN DO Specialist/Consultants Involve: TYLER JORDAN MD Discharge Summary PROCEDURES PERFORMED DURING STAY: Thoracentesis with pigtail catheter left in place. ADMITTING DIAGNOSES: 1. Pleural effusion with atelectasis of the left lung. 2. Pneumonia 3. Constipation DISCHARGE DIAGNOSES: 1. Pleural effusion with atelectasis of the left lung, improved. 2. Pneumonia 3. Constipation COMPLICATIONS/CHIEF COMPLAINT: Pneumonia,Moderate Sized Pleural Effusion. HISTORY OF PRESENT ILLNESS: Patient is a 70-year-old male presented to the hospital with complaints of chest pain. Patient described the chest pain being on the side of his ribs sometimes and also sometimes in the front of his chest. Patient says this went on for the past week or so. Patient also reports that he came into the emergency department because he has been having more shortness of breath over the past 2 to 3 days. This is worse with exertion. Patient has been coughing up adrienne colored sputum for the past 2 to 3 days as well. Patient states he had a lot of difficulty sleeping yesterday due to the pain. Patient denies any fevers or chills. Patient is also complaining some abdominal pain and is noticed that he been having some constipation over the past few days. Patient denies having any upper respiratory-like symptoms prior to the onset of this shortness of breath and cough. HOSPITAL COURSE: Patient had thoracentesis with pigtail catheter left in place performed on 01/05/2021. Patient tolerated the procedure well and the chest was drained. Patient did have an exudative effusion however, this did not appear to be an empyema. Patient was feeling well. Patient was initially started on Zosyn but this was downgraded to ceftriaxone and azithromycin. Dr. Jordan of pulmonary saw the patient and ordered a repeat CT scan after the pleural effusion was drained. Patient's repeat CT scan did show a spiculated nodule that will require follow-up. Dr. Jordan will also follow-up with the pathology results with the patient next week. Patient did not drain much out of the chest tube over the course of the 24 hours that it was then in the chest tube was pulled on 01/06/2021. Patient did well throughout the rest of the afternoon and remained off oxygen. Patient was have some constipation issues but was not having any belly pain. The decision was made to send the patient home on 01/06/2021. I instructed the patient to take Colace twice a day, MiraLAX and senna as needed until the patient has a bowel movement and then continue take Colace to ensure the patient continues to have soft bowel movements. Patient will also be sent home on 4 days of azithromycin. Patient was discharged from the hospital. DISCHARGE MEDICATIONS: Please see below. ALLERGIES: Please see below. PHYSICAL EXAMINATION ON DISCHARGE: VITAL SIGNS: Please see below. General: Alert and oriented male patient who was sitting the bedside chair and I walked in. Patient did not appear to be in any acute distress. HEENT: Normocephalic, atraumatic, moist mucous membranes. Neck: No lymphadenopathy or thyromegaly Cardiac: Regular rate and rhythm, no murmurs, normal S1, normal S2 Pulm: Crackles in the left base otherwise clear to auscultation in all lung portillo Abd: Nondistended, nontender to palpation, normal bowel sounds Ext: No edema bilateral lower extremities LABORATORY DATA: Please see below. IMAGING: Chest x-ray performed on 01/04/2021 was reported to show left pleural effusion probably with atelectasis in the left lower lobe. Cardiomegaly with vascular congestion. Question displaced interval calcification of the aortic knob, rule out aortic dissection. Recommend CT aortic angiography. CT angiogram of the chest performed on 12/08/2020 was aborted show there is no CT evidence of aortic aneurysm or pulmonary embolus. No aortic dissection is evident. There is moderate left pleural effusion with partial atelectasis left lower lobe. There is an infiltrate in the right upper lobe suggestive of pneumonia with some patchy areas of increased density in the right lower lobe. Cholelithiasis with ventral hernia. Post biopsy chest x-ray performed on 1020 is reported to improve left pleural effusion post left drainage tube placement. No complications seen. CT scan of the chest without contrast on 01/05/2021 is reported to show evacuated left pleural effusion. Abnormal bilateral lung portillo airspace opacities correlate clinically. Spiculated right middle lobe nodule measuring 1.3 cm which is for the most part of secured by respiratory motion artifact on the prior exam. Neoplasm is suspected. According to the revised Fleischner Society criteria PET CT is recommended. Probable adenopathy with possibly enlarged mediastinal lymph nodes that are difficult to evaluate due to artifact. There is a tiny left pneumothorax. Chest x-ray performed on 01/06/2021 was reported to show continued improvement in left pleural effusion post tube thoracostomy. Mild bibasilar platelike atelectasis. Chest x-ray performed on 01/06/2021 post chest tube removal was reported to show left chest tube withdrawn. PROGNOSIS: Good ACTIVITY: As tolerated. DIET: Regular DISCHARGE PLAN: Discharge home DISPOSITION: Home, self-care DISCHARGE INSTRUCTIONS: 1. Follow-up with your primary care provider in 3 to 5 days discharge. 2. Follow-up with Dr. Jordan of pulmonary within 1 to 2 weeks to go over the pathology from the pleural fluid. 3. Take azithromycin 500 mg for the next 4 days 4. Take Colace 100 mg twice a day along with MiraLAX and senna as needed for a bowel movement. 5. Return to the ED if symptoms worsen. ITEMS TO FOLLOWUP ON ON OUTPATIENT: 1. Pathology results from pleural fluid and follow-up on spiculated nodule found on CAT scan DISCHARGE CONDITION: Stable. TIME SPENT ON DISCHARGE: 35 minutes. Vital Signs/I&Os Vital Signs Date Time Temp Pulse Resp B/P (MAP) Pulse Ox O2 Delivery O2 Flow Rate FiO2 01/06/21 11:52 94 Room Air 01/06/21 09:00 2.0 01/06/21 06:00 97.9 90 18 154/89 (110) I&O- Last 24 Hours up to 6 AM 01/06/21 06:00 Intake Total 1110 ml Output Total 1985 ml Balance -875 ml Laboratory Data Labs 24H Laboratory Tests 2 01/06/21 05:58: Nucleated Red Blood Cells % (auto) 0.0, Anion Gap 9, Glomerular Filtration Rate > 60.0, Calcium Level 8.6L, Magnesium Level 2.2 CBC/BMP Laboratory Tests 01/06/21 05:58 Microbiology Microbiology 01/05/21 Fungal Smear, Received Pending 01/05/21 Fungal Culture, Received Pending 01/05/21 Gram Stain - Final, Resulted 01/05/21 Anaerobic Culture, Resulted Pending 01/05/21 Body Fluid Culture, Received Pending Discharge Medications Scheduled Azithromycin (Azithromycin) 250 Mg Tablet, 500 MG PO DAILY@1200 Calcium Carb/Vitamin D3/Vit K1 (Viactiv 650 mg-12.5 Mcg Chew) 1 Each Tab.chew, 1 TAB PO BID, (Reported) Cholecalciferol (Vitamin D3) (Vitamin D3) 50 Mcg Capsule, 50 MCG PO BID, (Reported) Cyanocobalamin (Vitamin B-12) (B-12) 1,000 Mcg Tablet, 1,000 MCG PO DAILY, (Reported) Docusate Sodium (Docusate Sodium) 100 Mg Capsule, 100 MG PO BID Multivitamins (Thera M Plus Tablet) 1 Each Tablet, 1 TAB PO BID, (Reported) Polyethylene Glycol 3350 (Miralax) 17 Gm Powd.pack, 1 PKT PO DAILY Senna (Senna Lax) 8.6 Mg Tablet, 1 TAB PO QHS Allergies Coded Allergies: No Known Allergies (Unverified , 01/04/21) GEOFF PETERSEN DO Jan 06, 2021 16:40
[2021-01-06] MEDS ORDERED: SENNA 8.6 MG TAB (SENOKOT) PO ONE (18:50)
[2021-01-06] MEDS ORDERED: DOCUSATE SODIUM 100MG CAPSULE PO ONE (18:50)
== END 2021-01-06 18:58 | disposition home or self-care (01) | DRG 186 ==
LOC: M ED 10:53 → M ED INP 15:40 → ENRESERV 15:58 → M MSPAV 16:46
PROVIDERS: ADMIT Family Medicine; ATTEND Family Medicine
PROC: 0W9B3ZZ Drainage of Left Pleural Cavity, Percutaneous Approach (ICD-10-PCS; principal; 2021-01-05 09:27)
DX: J90 Pleural effusion, not elsewhere classified (principal); J18.9 Pneumonia, unspecified organism; J98.11 Atelectasis; K59.00 Constipation, unspecified; R91.1 Solitary pulmonary nodule; Z79.899 Other long term (current) drug therapy; Z87.891 Personal history of nicotine dependence

== ENCOUNTER → 2021-01-17 | Outpatient (CLI) | payer MEDICARE ==
[~2021-01-17] MED LIST changes: +AZIT-12 PO; +B-12100021 PO; +DOCU100C16 PO; +MIRA1POW3 PO; +SENN18TA PO; +VIAC1CHW PO; +VITA200020 PO; +VITMTA PO
--- NOTE | 2021-01-17 12:39 | REP ---
INDICATION: PLEURAL EFFUSION, NOT ELSEWHERE CLASSIFIED COMPARISON: 01/06/2021 TECHNIQUE: PA and lateral. FINDINGS: Moderate left pleural effusion has reaccumulated with associated left lower lobe atelectasis. Trace right basilar atelectasis also suggested. No pneumothorax. IMPRESSION: New moderate left pleural effusion. Bibasilar atelectasis. <Electronically signed by Devaughn Mulligan > 01/17/21 [id number]
== END ==
LOC: M PLAIMG 12:12
PROVIDERS: ATTEND Internal Medicine Pulmonary Disease
DX: J90 Pleural effusion, not elsewhere classified (principal)

== ENCOUNTER 2021-01-27 23:26 | Inpatient (IN) | payer MEDICARE ==
[~2021-01-27] VITALS: Ht 167.6 cm; Wt 106.5 kg
[~2021-01-27 23:26] MED LIST changes: +TRAM50TA2 PO
--- OUTSIDE RECORDS SUMMARY | 2021-01-27 23:33 | CCD ---
Author Author [facility] Organization [facility] Address Unknown Phone Unavailable Care Team Providers Care Theater Technician Name Role Phone Liudmila THOMPSON MD Unavailable Unavailable Liudmila THOMPSON MD Unavailable Unavailable Re-disclosure Warning The records that you are about to access may contain information from federally-assisted alcohol or drug abuse programs. If such information is present, then the following federally mandated warning applies: This information has been disclosed to you from records protected by federal confidentiality rules (42 CFR part 2). The federal rules prohibit you from making any further disclosure of this information unless further disclosure is expressly permitted by the written consent of the person to whom it pertains or as otherwise permitted by 42 CFR part 2. A general authorization for the release of medical or other information is NOT sufficient for this purpose. The Federal rules restrict any use of the information to criminally investigate or prosecute any alcohol or drug abuse patient.The records that you are about to access may contain highly sensitive health information, the redisclosure of which is protected by Article 27-F of the [facility] Public Health law. If you continue you may have access to information: Regarding HIV / AIDS; Provided by facilities licensed or operated by the [facility] Office of Mental Health; or Provided by the [facility] Office for People With Developmental Disabilities. If such information is present, then the following [facility] mandated warning applies: This information has been disclosed to you from confidential records which are protected by state law. State law prohibits you from making any further disclosure of this information without the specific written consent of the person to whom it pertains, or as otherwise permitted by law. Any unauthorized further disclosure in violation of state law may result in a fine or mcc sentence or both. A general authorization for the release of medical or other information is NOT sufficient authorization for further disc losure. Family History Family Member Name Family Member Gender Family Member Status Date o f Status Description Data Source(s) Unknown Unknown Problem [facility] ([facility]) Encounters Encounter Providers Location Date Indications Data Source(s ) Outpatient Attender: TYLER Robetr/Basil/Fracisco/ Reinsravani 01/17/2021 03:15:00 PM EDT [facility] ([facility] Unknown [address] [address] 01/09/2021 12:00:00 AM EDT eCW1 ([facility]) Outpatient Attender: TYLER Robert/Basil/Fracisco/ Reinsravani 01/06/2021 01:23:00 AM EDT [facility] ([facility], ) Outpatient Attender: TYLER Robert/Basil/Fracisco/ Reindl 01/05/2021 01:23:00 AM EDT [facility] ([facility], ) Outpatient [address] [address] 06/26/2020 12:00:00 AM EDT eCW1 ([facility]) Immunizations Vaccine Date Status Description Data Source(s) pneumococcal polysaccharide PPV23 01/09/2021 03:26:00 PM EDT comple willie [facility] ([facility], ) New in 2011. IIV4 01/02/2021 03:27:00 PM EDT completed [facility] ([facility], ) Moderna Covid-19 vaccine, mRNA, LNP-S, PF, 100 mcg/ 0. 5 mL 06/11/2020 02:26:00 PM EST completed [facility] ([facility]) COVID-19 dose #2 given elsewhere Unspecified 06/11/2020 07:3 4:00 AM EST completed eCW1 ([facility]) COVID-19 dose #2 given elsewhere Unspecified 06/11/2020 07:3 4:00 AM EST completed eCW1 ([facility]) COVID-19 VACCINE Moderna 06/11/2020 12:00:00 AM EST completed [facility] Vaccine Series Complete: YESThis Data wa s Submitted to [facility] Via [employer]. Moderna Covid-19 vaccine, mRNA, LNP-S, PF, 100 mcg/ 0. 5 mL 05/14/2020 02:25:00 PM EST completed [facility] ([facility]) COVID-19 dose #1 given elsewhere Unspecified 05/14/2020 07:3 4:00 AM EST completed eCW1 ([facility]) COVID-19 dose #1 given elsewhere Unspecified 05/14/2020 07:3 4:00 AM EST completed eCW1 ([facility]) COVID-19 VACCINE Moderna 05/14/2020 12:00:00 AM EST completed [facility] Vaccine Series Complete: NOThis Data was Submitted to [facility] Via [employer]. IIV3. This is one of two codes replacing CVX 15, which is being retired. 01/06/2020 08:01:00 AM EDT completed eCW1 ([facility]) IIV3. This is one of two codes replacing CVX 15, which is being retired. 01/06/2020 08:01:00 AM EDT completed eCW1 ([facility]) INFLUENZA VACCINE QUADRIVALENT 2019- (65 YR UP)/MF59 C.1/PF 01/06/2020 12:00:00 AM EDT completed [facility] Medications Medication Brand Name Start Date Product Form Dose Route Admi nistrative Instructions Pharmacy Instructions Status Indications Reaction Description Data Source(s) 50 mg 01/22/2021 12:00:00 AM EDT tablet 30 TAKE ONE TABLET BY MOUTH EVERY 4 HOURS NEEDED FOR PAIN FOR 5 DAYS. MAXIMUM DAILY DOSE = 6 TAKE ONE TABLET BY MOUTH EVERY 4 HOURS NEEDED FOR PAIN FOR 5 DAYS. MAXIMUM DAILY DOSE = 6 SOLD: 01/22/2021 [facility] Ondansetron 4 MG Oral Tablet Ondansetron HCl 4 MG Ondansetro n HCl 4 MG 01/09/2021 12:00:00 AM EDT 1.0 {tablet} active Ondansetron HCl 4 MG eCW1 ([facility]) 4 mg 01/09/2021 12:00:00 AM EDT tablet 15 TAKE ONE TABLET BY MOUTH EVERY 6 HOURS NEEDED FOR NAUSEA TAKE ONE TABLET BY MOUTH EVERY 6 HOURS A S NEEDED FOR NAUSEA SOLD: 01/09/2021 [facility] Docusate Sodium 100 MG Oral Capsule Docusate Sodium 100 MG 1 12:00:00 AM EDT 1.0 {capsule_as_needed} active Docusate Sodium 100 MG eCW1 ([facility]) 250 mg 01/06/2021 12:00:00 AM EDT tablet 8 TAKE TWO TABLETS BY MOUTH DAILY AT NOON FOR 4 DAYS TAKE TWO TABLETS BY MOUTH DAILY AT NOON FOR 4 DAYS TALYA [facility] POLYETHYLENE GLYCOL 3350 142 MG/ML Oral Solution [Kaley lax] MiraLax 17 GM MiraLax 17 GM 01/06/2021 12:00:00 AM EDT 1.0 {packet_mixed_with_8_ou nces_of_fluid} active MiraLax 17 GM eCW1 ([facility]) Insurance Providers Payer name Policy type / Coverage type Policy ID Covered alliance party ID Covered alliance party's relationship to schmitz Policy Schmitz Plan Information [facility] [id number] 80 [id number] ANSI-Commercial [id number] ANS-Medicare Part B [id number] ANSI-Medicare Part B [id number] ANSI-Commercial [id number] MEDICARE [id number] SP [id number] A [facility] [id number] SP [id number] [facility] Health Care Health Maintenance Organization (HMO) [id number] Self [facility] [id number] MEDICARE [id number] SP [id number] Problems, Conditions, and Diagnoses No Information Surgeries/Procedures Procedure Description Date Indications Data Source(s) OFFICE OUTPATIENT VISIT 25 MINUTES 01/17/2021 12:00:00 AM EDT [facility] ([facility]) [facility] CARE/DAY 25 MINUTES 01/06/2021 12:00:00 AM EDT [facility] ([facility]) [facility] HOSPITAL CARE/DAY 25 MINUTES 01/05/2021 12:00:00 AM EDT [facility] ([facility]) Results ID Date Data Source [id number] 01/04/2021 02:03:00 PM EDT [facility] Name Value Range Interpretation Code Description Data Marion rce(s) Supporting Document(s) SARS coronavirus 2 RNA [Presence] in Res piratory specimen by JONI with probe detection NEGATIVE [facility] This lab was ordered by [facility] a nd reported by [facility]. Procedure Social History Code Duration Value Status Description Data Source(s ) Smoking 01/17/2021 12:00:00 AM EDT Patient is a former smoker completed Patient is a former smoker [facility] ([facility], ) Smoking 06/26/2020 12:00:00 AM EDT Former Smoker completed Former Smoker eCW1 ([facility]) Smoking 06/26/2020 12:00:00 AM EDT Former Smoker completed Former Smoker eCW1 ([facility]) Vital Signs ID Date Data Source UNK Name Value Range Interpretation Code Description Data Source(s) Body height 65 [in_i] 65 [in_i] [facility] ([facility]) 5'5" Diastolic blood pressure 96 mm[Hg] 96 mm[Hg] [facility] ([facility]) Heart rate 102 /min 102 /min [facility] ([facility]) Oxygen saturation in Arterial blood by Pulse oximetry 96 % 96 % [facility] ([facility]) Room Air Body weight 238.00 [lb_av] 238.00 [[facility]_av] [facility] Systolic blood pressure 160 mm[Hg] 160 mm[Hg] M [facility] ([facility]) Body mass index (BMI) [Ratio] 39.6 kg/m2 39.6 k g/m2 [facility] ([facility]) Lag[place] body weight 136 [lb_av] 136 [lb_av] [facility] Body weight 107.957 kg 107.957 kg [facility] ([facility]) Body surface area Derived from formula 2.13 m2 2.13 m2 [facility] ([facility]) Body weight 245.2 [lb_av] 245.2 [lb_av] eCW1 ([facility]) Body height 66.5 [in_i] 66.5 [in_i] eCW1 ([facility]) Body mass index (BMI) [Ratio] 38.98 kg/m2 38.98 kg/m2 eCW1 ([facility]) Heart rate 97 /min 97 /min eCW1 ([facility]) Respiratory rate 20 /min 20 /min eCW1 ([facility]) Body temperature 98.5 [degF] 98.5 [degF] eCW1 ( [facility]) Systolic blood pressure 120 mm[Hg] 120 mm[Hg] e CW1 ([facility]) Diastolic blood pressure 74 mm[Hg] 74 mm[Hg] eCW1 ([facility])
--- OUTSIDE RECORDS SUMMARY | 2021-01-27 23:33 | CCD | Continuity of Care Document ---
Author Author Eric THOMPSON M.D Organization Unknown Address [address] [place] [address] Phone [phone] Care Team Providers Care Clay Products Glazer Name Role Phone Feliberto Gamble M.D. AUTM [phone] Problems Description No Information Available Social History Type Date Description Comments Sex Unknown Tobacco Use Start: 04/07/88 End: 04/07/90 Patient is a forme r smoker 5 cigars daily never cigarettes Smoking Status Reviewed: 01/17/21 Patient is a former smoker 5 cigars daily never cigarettes Allergies and adverse reactions Description No Known Drug Allergies Medications Active Medications SIG Qnty Indications Ordering Provide r Date Vitamin D 1 tab by mouth twice a day Unknown Vitamin B 12 500mcg Tablets 1 tab by mouth every day Unknown Viactiv Calcium Plus D 650-12.5-40mg-mcg Chewtabs 1 tab by mouth every day Unknown Multivitamin Childrens Chewtabs 1 tab by mouth twice a day Unknown Antacid 1 tab by mouth as needed Unknown Probiotic Acidophilus Capsules 2 tab by mouth every day Unknown Immunizations CPT Code Status Date Vaccine Lot # [id number] Given 01/09/2021 Pneumococcal PPSV23 04287 Given 01/02/2021 Flublock, Quadrivalent 32276 Given 06/11/2020 Moderna Covid-19 vaccine, mRNA, LNP-S, PF, 100 mcg/ 0.5 mL 37006 Given 05/14/2020 Moderna Covid-19 vaccine, mRNA, LNP-S, PF, 100 mcg/ 0.5 mL Vital Signs Date Vital Result Comment 01/17/2021 3:15pm BP Systolic 160 mmHg BP Diastolic 96 mmHg Heart Rate 102 /min O2 % BldC Oximetry 96 % Room Air Height 65 inches 5'5" Weight 238.00 lb BMI (Body Mass Index) 39.6 kg/m2 [place] Body Weight 136 lb Weight 107.957 kg BSA (Body Surface Area) 2.13 m2 Results Description No Information Available Procedures Description No Information Available Medical Devices Description No Information Available Encounters Description No Information Available Assessments Date Code Description Provider 01/17/2021 R91.8 Other nonspecific abnormal findi ng of lung field Rohan Thompson M.D. 01/17/2021 J90 Pleural effusion, not elsewhere classified Rohan Thompson M.D. Plan of Treatment Future Appointment(s):* 01/23/2021 2:00 pm - Rohan Thompson M.D. at [facility]monary/Th[facility]acic 01/17/2021 - Rohan Thompson M.D.* R91.8 Other nonspecific abnormal finding of lung field * J90 Pleural effusion, not elsewhere classified * * New Xrays:* Chest, 2 Views, PA & Lat, Scheduled: 01/17/21 * PET/CT Skull Base To Mid-Thigh, Ordered: 01/17/21 * Comments:* 1. The patient was instructed not to lift or strain for 24 hours after the procedure. 2. The patient was instructed to call the office with any increased shortness of breath or chest discomfort. 3. He is to report to the closest emergency room with any sudden onset of shortness of breath or chest pain.4. The risks and benefits of the procedure were reviewed with the patient. Such risks include, but are not limited to, pneumothorax, bleeding, infection, pain and shortness of breath. * Follow up:* 1. Follow up one week after the procedure 2. needs to have thoracentesis first then PET scan. Then can fup afterward Functional Status Description No Information Available Mental Status Description No Information Available Referrals Description No Information Available
--- OUTSIDE RECORDS SUMMARY | 2021-01-27 23:33 | CCD | Continuity of Care Document ---
Author Author Eric THOMPSON M.D Organization Unknown Address [address] [place] [address] Phone [phone] Care Team Providers Care Forensic Technician Name Role Phone Feliberto Gamble M.D. AUTM [phone] Problems Description No Information Available Social History [...] CPT Code Status Date Vaccine Lot # 10090 Given 01/09/2021 Pneumococcal PPSV23 13347 Given 01/02/2021 Flublock, Quadrivalent 23501 Given 06/11/2020 Moderna Covid-19 vaccine, mRNA, LNP-S, PF, 100 mcg/ 0.5 mL 00870 Given 05/14/2020 Moderna Covid-19 vaccine, mRNA, LNP-S, PF, 100 mcg/ 0.5 mL Vital Signs Date Vital Result Comment 01/17/2021 3:15pm BP Systolic 160 mmHg BP Diastolic 96 mmHg Heart Rate 102 /min O2 % BldC Oximetry 96 % Room Air Height 65 inches 5'5" Weight 238.00 lb BMI (Body Mass Index) 39.6 kg/m2 [place] Body Weight 136 lb Weight 107.957 kg [...] 2:00 pm - Rohan Thompson M.D. at [facility] Pulmonary/Thoracic 01/17/2021 - Rohan Thompson M.D.* R91.8 [...]
--- OUTSIDE RECORDS SUMMARY | 2021-01-27 23:33 | CCD | Continuity of Care Document ---
Author Author Eric THOMPSON M.D Organization Unknown Address [address] [place] [address] Phone [phone] Care Team Providers Care Anesthesiologist Name Role Phone Feliberto Gamble M.D. AUTM [phone] Problems Description No Information Available Social History [...] CPT Code Status Date Vaccine Lot # [id number] Given 01/09/2021 Pneumococcal PPSV23 19118 Given 01/02/2021 Flublock, Quadrivalent 62278 Given 06/11/2020 Moderna Covid-19 vaccine, mRNA, LNP-S, PF, 100 mcg/ 0.5 mL 30139 Given 05/14/2020 Moderna Covid-19 vaccine, mRNA, LNP-S, PF, 100 mcg/ 0.5 mL Vital Signs Date Vital Result Comment 01/17/2021 3:15pm BP Systolic 160 mmHg BP Diastolic 96 mmHg Heart Rate 102 /min O2 % BldC Oximetry 96 % Room Air Height 65 inches 5'5" Weight 238.00 lb BMI (Body Mass Index) 39.6 kg/m2 [place] Body Weight 136 lb Weight 107.957 kg BSA (Body Surface Area) 2.13 m2 Results Description No Information Available Procedures Date Code Description Status 01/17/2021 85616 Office/Outpatient Established Mo d MDM 30-39 Min Completed 01/06/2021 34275 Hospital Subsequent Care Level 2 Completed 01/05/2021 30141 Hospital Subsequent Care Level 2 Completed Medical Devices Description No Information Available Encounters Type Date Location Provider Dx Diagnosis Office Visit 01/17/2021 3:15p [facility] Erik Thompson M.D. R91.8 Other nonspecific abnormal f inding of lung field J90 Pleural effusion, not elsewh ere classified Office Visit 01/06/2021 1:23a [facility] Erik Thompson M.D. J90 Pleural effusion, not elsewh ere classified R91.8 Other nonspecific abnormal f inding of lung field Office Visit 01/05/2021 1:23a [facility] Erik Thompson M.D. J90 Pleural effusion, not elsewh ere classified R91.8 Other nonspecific abnormal f inding of lung field Assessments Date Code Description Provider 01/17/2021 R91.8 Other nonspecific abnormal findi ng of lung field Rohan Thompson M.D. 01/17/2021 J90 Pleural effusion, not elsewhere classified Rohan Thompson M.D. 01/06/2021 J90 Pleural effusion, not elsewhere classified Rohan Thompson M.D. 01/06/2021 R91.8 Other nonspecific abnormal findi ng of lung field Rohan Thompson M.D. 01/05/2021 J90 Pleural effusion, not elsewhere classified Rohan Thompson M.D. 01/05/2021 R91.8 Other nonspecific abnormal findi ng of lung field Rohan Thompson M.D. Plan of Treatment 01/17/2021 - Rohan Thompson M.D.* R91.8 Other nonspecific abnormal finding of lung field * J90 Pleural effusion, not elsewhere classified * * New Xrays:* PET/CT Skull Base To Mid-Thigh, Ordered: 01/17/21 [...]
--- OUTSIDE RECORDS SUMMARY | 2021-01-27 23:33 | CCD ---
Continuity of Care Document (CCD) Created on: 01/19/2021 Eric Randhawa External Reference #: [id number] : 1950 Sex: Male Author Author Eric THOMPSON M.D Organization Unknown Address [address] [place] [address] Phone [phone] Care Team Providers Care Belt Molder Name Role Phone Feliberto Gamble M.D. AUTM [phone] Problems Description No Information Available Social History [...] CPT Code Status Date Vaccine Lot # 13072 Given 01/09/2021 Pneumococcal PPSV23 09388 Given 01/02/2021 Flublock, Quadrivalent 82849 Given 06/11/2020 Moderna Covid-19 vaccine, mRNA, LNP-S, PF, 100 mcg/ 0.5 mL 75919 Given 05/14/2020 Moderna Covid-19 vaccine, mRNA, LNP-S, PF, 100 mcg/ 0.5 mL Vital Signs Date Vital Result Comment 01/17/2021 3:15pm BP Systolic 160 mmHg BP Diastolic 96 mmHg Heart Rate 102 /min O2 % BldC Oximetry 96 % Room Air Height 65 inches 5'5" Weight 238.00 lb BMI (Body Mass Index) 39.6 kg/m2 [place] Body Weight 136 lb Weight 107.957 kg BSA (Body Surface Area) 2.13 m2 Results Description No Information Available Procedures Date Code Description Status 01/17/2021 53883 Office/Outpatient Established Mo d MDM 30-39 Min Completed Medical Devices Description No Information Available Encounters Type Date Location Provider Dx Diagnosis Office Visit 01/17/2021 3:15p [facility] M myron Thompson M.D. R91.8 Other nonspecific abnormal f inding of lung field J90 Pleural effusion, not elsewh ere classified Assessments Date Code Description Provider 01/17/2021 R91.8 Other nonspecific abnormal findi ng of lung field Rohan Thompson M.D. 01/17/2021 J90 Pleural effusion, not elsewhere classified Rohan Thompson M.D. Plan of Treatment 01/17/2021 [...]
--- OUTSIDE RECORDS SUMMARY | 2021-01-27 23:33 | CCD | Continuity of Care Document ---
Author Author Eric THOMPSON M.D Organization Unknown Address [address] [place] [address] Phone [phone] Care Team Providers Care Director Of Agriculture Name Role Phone Feliberto Gamble M.D. AUTM [phone] Problems Description No Information Available Social History [...] CPT Code Status Date Vaccine Lot # [id number] Given 01/09/2021 Pneumococcal PPSV23 18680 Given 01/02/2021 Flublock, Quadrivalent 92654 Given 06/11/2020 Moderna Covid-19 vaccine, mRNA, LNP-S, PF, 100 mcg/ 0.5 mL 51577 Given 05/14/2020 Moderna Covid-19 vaccine, mRNA, LNP-S, PF, 100 mcg/ 0.5 mL Vital Signs Date Vital Result Comment 01/17/2021 3:15pm BP Systolic 160 mmHg BP Diastolic 96 mmHg Heart Rate 102 /min O2 % BldC Oximetry 96 % Room Air Height 65 inches 5'5" Weight 238.00 lb BMI (Body Mass Index) 39.6 kg/m2 [place] Body Weight 136 lb Weight 107.957 kg [...] 2:00 pm - Rohan Thompson M.D. at [facility] Pulmonary/Thoracic 01/17/2021 - Rohan Thompson M.D.* [...]
--- OUTSIDE RECORDS SUMMARY | 2021-01-27 23:33 | CCD | Continuity of Care Document ---
Author Author Eric THOMPSON M.D Organization Unknown Address [address] [place] [address] Phone [phone] Care Team Providers Care Registry Nurse Name Role Phone Feliberto Gamble M.D. AUTM [phone] Problems Description No Information Available Social History [...] CPT Code Status Date Vaccine Lot # 67837 Given 01/09/2021 Pneumococcal PPSV23 64986 Given 01/02/2021 Flublock, Quadrivalent 08762 Given 06/11/2020 Moderna Covid-19 vaccine, mRNA, LNP-S, PF, 100 mcg/ 0.5 mL 12303 Given 05/14/2020 Moderna Covid-19 vaccine, mRNA, LNP-S, PF, 100 mcg/ 0.5 mL Vital Signs Date Vital Result Comment 01/17/2021 3:15pm BP Systolic 160 mmHg BP Diastolic 96 mmHg Heart Rate 102 /min O2 % BldC Oximetry 96 % Room Air Height 65 inches 5'5" Weight 238.00 lb BMI (Body Mass Index) 39.6 kg/m2 [place] Body Weight 136 lb Weight 107.957 kg BSA (Body Surface Area) 2.13 m2 Results Description No Information Available Procedures Date Code Description Status 01/17/2021 58193 Office/Outpatient Established Mo d MDM 30-39 Min Completed Medical Devices Description No Information Available Encounters Type Date Location Provider Dx Diagnosis Office Visit 01/17/2021 3:15p [facility] M myron Thompson M.D. R91.8 Other [...]
--- OUTSIDE RECORDS SUMMARY | 2021-01-27 23:33 | CCD ---
Author Author [facility] Organization [facility] Address Unknown Phone Unavailable Care Team Providers Care Cigarette Stamper Name Role Phone Feliberto Gamble Unavailable PROBLEMS Type Condition ICD9-CM Code KQL38-DW Code Onset Dates Condition S tatus W/U Status Risk SNOMED Code Notes Problem Bariatric surgery status Z98.84 Active confirmed 860769266 Had surgery in 2002; I can't recall what type but suspect it was a Mckenzie-en-Y procedure. He is doing well with normal vitamin levels and adequate nutritional status. Problem Heart murmur R01.1 Active confirmed 3530860 6 Described in past and he has minimal findings on examination. Problem Allergic rhinitis J30.9 Active confirmed 61 322485 Stable on intranasal steroid therapy seasonally. ALLERGIES No Known Allergies ENCOUNTERS from 1950 to 2021-01-15 Encounter Location Date Provider Diagnosis [address] [phone] [place] [address] 05 Jan, 2021 Feliberto Gamble IMMUNIZATIONS Vaccine Route Administration Date Status COVID-19 dose #1 given elsewhere Unspecified Unknown May 14, 2020 Administered COVID-19 dose #2 given elsewhere Unspecified Unknown Jun Administered Influenza (High Dose 65 & up) Unknown Feb 14, 2017 Ad ministered Influenza (High Dose 65 & up) Unknown Jan 09, 2018 Ad ministered Influenza Pharmacy Given Unknown Jan 06, 2020 Adminis tered Influenza 6mo & up Fluzone Unknown Jan 14, 2014 Admin istered Influenza (High Dose 65 & up) IM Intramuscular Feb 13, 2016 A dministered Influenza (High Dose 65 & up) IM Intramuscular Jan 11, 2015 A dministered Zoster 0.65mL Zostavax Unknown June 17, 2011 Administe red Pneumococcal Adult 0.5mL Pneumovax 23 ID Intradermal Feb 12 16 Administered TDAP Unknown June 17, 2013 Administered Pneumococcal 0.5mL Prevnar 13 IM Intramuscular Jan 13, 2015 A dministered TD PED 0.5mL Tetanus Unknown June 06, 2003 Administere d Influenza 6mo & up Fluzone Unknown Dec 27, 2018 Admin istered SOCIAL HISTORY Tobacco Use: Social History Observation Description Date Details (start date - stop date) Former Smoker Sex Assigned At : Social History Observation Description Sex Assigned At Unknown Audit Question Answer Notes Total Score: 0 Interpretation: Alcohol Education Domestic Violence: Question Answer Notes Status: Sexual Hx: Question Answer Notes Had sex in the last 12 months (vaginal, oral, or anal)? No Have you ever had an STD? No Drug and Alcohol Question Answer Notes Total Score: 0 Interpretation: No problems reported Tobacco Use: Question Answer Notes Are you a: former smoker How long has it been since you last smoked? > 10 years REASON FOR REFERRAL No Information VITAL SIGNS No information MEDICATIONS Medication SIG (Take, Route, Frequency, Duration) Notes Start Da te End Date Status Docusate Sodium 100 MG 1 capsule as needed Orally Once a day for 30 day(s) on hospital discharge 01/06/21 Jan, Active MiraLax 17 GM 1 packet mixed with 8 ounces of fluid Orally Once a day for 30 day(s) o n hospital discharge 01/06/21 Jan, A ctive Viactiv 500-500-40 MG-UNT-MCG 1 tablet with a meal Ora lly Twice a day for 100 days Active Cyanocobalamin 50 MCG as directed Orally bid Active Ondansetron HCl 4 MG 1 tablet Orally every 6 hours as needed Jan, Active Vitamin D 2000 UNIT 1 tablet Orally Twice a day for 225 days Active Multiple Vitamin _ 2 tablets Orally Once a day for 100 days Active PROCEDURES No Information RESULTS No Results REASON FOR VISIT TCM/ACO 14 [facility] d/c 01/06 Pleural effusion with atelectasis of the left lung, impr khalif. MEDICAL (GENERAL) HISTORY Type Description Date Medical History Allergic rhinitis Medical History Bariatric surgery status Surgical History Appendectomy 11/1979 Surgical History Bariatric Surgery 03/2003 Surgical History Colonoscopy 06/2004 Surgical History Colonoscopy 10/2015 Goals Section No Information Health Concerns No Information MEDICAL EQUIPMENT No Information MENTAL STATUS No Information FUNCTIONAL STATUS No Information ASSESSMENTS Encounter Date Diagnosis Assessment Notes Treatment Notes Treatm ent Clinical Notes Jan, Other 01/10/21 9:37 am - Discussion with pt s/o hospitalization. Pt reports his breathing is improving but states he is having GI problems with nausea, heart burn and stomach upset. Pt reports having BM Friday and 2 BMs Friday so is only taking Colace per discharge instructions. Pt reports taking antibiotic as prescribed and had a tele visit with Dr Bolaños yesterday and was prescribed Zofran to help with nausea. Pt reports medication not really helping. Pt plans to go to drug store and speak with pharmacist about getting an antacid. Pt not taking pro biotic and is in agreement to discuss this with pharmacist as well. Medication reconcilitaion completed and medication record updated. [facility] Cager advised pt is GI symptoms do not improve or if they worsens o contact office for acute appt and pt verbalized understanding and agreement. Pt aware of hosp f/u 01/22/21. Virgil Trujillo RN PLAN OF TREATMENT Next Appt Details Provider Name:Feliberto Gamble, 2021-01-22 01 :30:00 PM, [address] [place] [address], , [place], [address], Provider Name:Feliberto Gamble, 2021-06-25 07 :30:00 AM, [address] [place] [address], , [place], [address], Insurance Providers Payer Name Payer Address Payer Phone Insured Name Patient Relati onship to Insured Coverage Start Date Coverage End Date MEDICARE Part A and B [address] [facility] [id number] [phone] [employer]OR[employer] DAY self
--- OUTSIDE RECORDS SUMMARY | 2021-01-27 23:33 | CCD | Continuity of Care Document ---
Author Author Eric THOMPSON M.D Organization Unknown Address [address] [place] [address] Phone [phone] Care Team Providers Care Physical Education Department Chair Name Role Phone Feliberto Gamble M.D. AUTM [phone] Problems Description No Information Available Social History [...] CPT Code Status Date Vaccine Lot # [id number] Given 01/09/2021 Pneumococcal PPSV23 82041 Given 01/02/2021 Flublock, Quadrivalent 54278 Given 06/11/2020 Moderna Covid-19 vaccine, mRNA, LNP-S, PF, 100 mcg/ 0.5 mL 97179 Given 05/14/2020 Moderna Covid-19 vaccine, mRNA, LNP-S, PF, 100 mcg/ 0.5 mL Vital Signs Date Vital Result Comment 01/17/2021 3:15pm BP Systolic 160 mmHg BP Diastolic 96 mmHg Heart Rate 102 /min O2 % BldC Oximetry 96 % Room Air Height 65 inches 5'5" Weight 238.00 lb BMI (Body Mass Index) 39.6 kg/m2 [place] Body Weight 136 lb Weight 107.957 kg BSA (Body Surface Area) 2.13 m2 Results Description No Information Available Procedures Date Code Description Status 01/17/2021 10769 Office/Outpatient Established Mo d MDM 30-39 Min Completed 01/06/2021 70321 Hospital Subsequent Care Level 2 Completed 01/05/2021 29530 Hospital Subsequent Care Level 2 Completed Medical [...]
--- OUTSIDE RECORDS SUMMARY | 2021-01-27 23:33 | CCD ---
Continuity of Care Document (CCD) Created on: 01/17/2021 Eric Randhawa External Reference #: [id number] : 1950 Sex: Male Author Author Eric THOMPSON M.D Organization Unknown Address [address] [place] [address] Phone [phone] Care Team Providers Care Furniture Sales Consultant Name Role Phone Feliberto Gamble M.D. AUTM [phone] Problems Description No Information Available Social History [...] CPT Code Status Date Vaccine Lot # 41296 Given 01/09/2021 Pneumococcal PPSV23 87099 Given 01/02/2021 Flublock, Quadrivalent 49077 Given 06/11/2020 Moderna Covid-19 vaccine, mRNA, LNP-S, PF, 100 mcg/ 0.5 mL 68894 Given 05/14/2020 Moderna Covid-19 vaccine, mRNA, LNP-S, PF, 100 mcg/ 0.5 mL Vital Signs Date Vital Result Comment 01/17/2021 3:15pm BP Systolic 160 mmHg BP Diastolic 96 mmHg Heart Rate 102 /min O2 % BldC Oximetry 96 % Room Air Height 65 inches 5'5" Weight 238.00 lb BMI (Body Mass Index) 39.6 kg/m2 [place] Body Weight 136 lb Weight 107.957 kg [...] 2:00 pm - Rohan Thompson M.D. at [facility] Pulmonary/Thoracic 01/17/2021 - Rohan Thompson M.D.* [...]
--- OUTSIDE RECORDS SUMMARY | 2021-01-27 23:33 | CCD | Continuity of Care Document ---
Author Author Eric THOMPSON M.D Organization Unknown Address [address] [place] [address] Phone [phone] Care Team Providers Care Livestock Buyer Name Role Phone Feliberto Gamble M.D. AUTM [phone] Problems Description No Information Available Social History [...] CPT Code Status Date Vaccine Lot # [id number] Given 01/09/2021 Pneumococcal PPSV23 30299 Given 01/02/2021 Flublock, Quadrivalent 97925 Given 06/11/2020 Moderna Covid-19 vaccine, mRNA, LNP-S, PF, 100 mcg/ 0.5 mL 61574 Given 05/14/2020 Moderna Covid-19 vaccine, mRNA, LNP-S, PF, 100 mcg/ 0.5 mL Vital Signs Date Vital Result Comment 01/17/2021 3:15pm BP Systolic 160 mmHg BP Diastolic 96 mmHg Heart Rate 102 /min O2 % BldC Oximetry 96 % Room Air Height 65 inches 5'5" Weight 238.00 lb BMI (Body Mass Index) 39.6 kg/m2 [place] Body Weight 136 lb Weight 107.957 kg [...] 2:00 pm - Rohan Thompson M.D. at [facility] Pulmonary/Thoracic 01/17/2021 - Rohan Thompson M.D.* R91.8 [...]
[2021-01-28] VITALS (23 sets, daily range): BP systolic 129–158; BP diastolic 72–92
[2021-01-28 00:23] LABS: BASO % 0.3 % (0.0-1.0); EOS # 0.2 10^3/uL (0.0-0.5); EOS % 3.1 % (0.0-3.0); HEMATOCRIT 46.1 % (42.0-52.0); HEMOGLOBIN 15.2 g/dl (13.5-17.5); LYMPH # 1.6 10^3/uL (1.5-5.0); LYMPH % 24.5 % (24.0-44.0); MEAN CORPUSCULAR HEMOGLOBIN 31.4 pg (27.0-33.0); MEAN CORPUSCULAR VOLUME 95.2 fl (80.0-96.0); MONO # 0.7 10^3/uL (0.0-0.8); MONO % 11.1 % (2.0-8.0); NEUTROPHILS % 60.8 % (36.0-66.0); PLATELET COUNT, AUTOMATED 398 10^3/uL (150-450); RED BLOOD COUNT 4.84 10^6/uL (4.30-6.10); WHITE BLOOD COUNT 6.5 10^3/uL (4.0-10.0)
[2021-01-28 00:55] LABS: ALBUMIN 2.9 GM/DL (3.2-5.2); ALT/SGPT 33 U/L (12-78); BILIRUBIN,TOTAL 0.5 MG/DL (0.2-1.0); BLOOD UREA NITROGEN 14 MG/DL (7-18); CALCIUM LEVEL 8.2 MG/DL (8.8-10.2); CARBON DIOXIDE LEVEL 27 MEQ/L (21-32); CHLORIDE LEVEL 106 MEQ/L (98-107); CK-MB VALUE MASS 1.5 NG/ML (<3.6); CPK CREATINE PHOSPHOKINASE 68 U/L (39-308); CREATININE FOR GFR 0.73 MG/DL (0.70-1.30); GLOMERULAR FILTRATION RATE > 60.0 (>42); GLUCOSE, FASTING 104 MG/DL (70-100); MAGNESIUM LEVEL 2.1 MG/DL (1.8-2.4); MB/CK RELATIVE INDEX 2.21 (< OR =4); NT-PRO BNP 198 PG/ML (<125); POTASSIUM SERUM 4.1 MEQ/L (3.5-5.1); SODIUM LEVEL 142 MEQ/L (136-145); TROPONIN I < 0.02 NG/ML (< 0.10)
--- OUTSIDE RECORDS SUMMARY | 2021-01-28 01:32 | CCD ---
Author Author [facility] Organization [facility] Address Unknown Phone Unavailable Care Team Providers Care Tool And Die Supervisor Name Role Phone Liudmila THOMPSON MD Unavailable [...] is protected by Article 27-F of the [facility] Public Health law. If you continue you may have access to information: Regarding HIV / AIDS; Provided by facilities licensed or operated by the [facility] Office of Mental Health; or Provided by the [facility] Office for People With Developmental Disabilities. If such information is present, then the following [facility] mandated warning applies: This information has been [...] law may result in a fine or senior living sentence or both. A general authorization for the release of medical or other information is NOT sufficient authorization for further disc losure. Family History Family Member Name Family Member Gender Family Member Status Date o f Status Description Data Source(s) Unknown Unknown Problem MEDENT ([facility]) Encounters Encounter Providers Location Date Indications Data Source(s ) Outpatient Attender: TYLER Robert/Basil/Fracisco/ Beata 01/17/2021 03:15:00 PM EDT MEDENT [facility] [place] [address] [address] 01/09/2021 12:00:00 AM EDT eCW1 ([facility]) Outpatient Attender: TYLER Robert/Basil/Fracisco/ Beata 01/06/2021 01:23:00 AM EDT MEDENT ([facility], ) Outpatient Attender: TYLER Robert/Basil/Fracisco/ Reinsravani 01/05/2021 01:23:00 AM EDT MEDENT ([facility], ) Outpatient [address] [address] 06/26/2020 12:00:00 AM EDT eCW1 ([facility]) Immunizations Vaccine Date Status Description Data Source(s) pneumococcal polysaccharide PPV23 01/09/2021 03:26:00 PM EDT comple willie MEDENT ([facility], ) New in 2011. IIV4 01/02/2021 03:27:00 PM EDT completed MEDENT ([facility], ) Moderna Covid-19 vaccine, mRNA, LNP-S, PF, 100 mcg/ 0. 5 mL 06/11/2020 02:26:00 PM EST completed MEDENT ([facility]) COVID-19 dose #2 given elsewhere Unspecified 06/11/2020 07:3 4:00 AM EST completed eCW1 ([facility]) COVID-19 dose #2 given elsewhere Unspecified 06/11/2020 07:3 4:00 AM EST completed eCW1 ([facility]) COVID-19 VACCINE Moderna 06/11/2020 12:00:00 AM EST completed [facility]SIIS Vaccine Series Complete: YESThis Data wa s Submitted to [facility] Via [email or web address]. Moderna Covid-19 vaccine, mRNA, LNP-S, PF, 100 mcg/ 0. 5 mL 05/14/2020 02:25:00 PM EST completed MEDENT ([facility]) COVID-19 dose #1 given elsewhere Unspecified 05/14/2020 07:3 4:00 AM EST completed eCW1 ([facility]) COVID-19 dose #1 given elsewhere Unspecified 05/14/2020 07:3 4:00 AM EST completed eCW1 ([facility]) COVID-19 VACCINE Moderna 05/14/2020 12:00:00 AM EST completed NYSIIS Vaccine Series Complete: NOThis Data was Submitted to [facility] Via [email or web address]. IIV3. This is one of two codes replacing CVX 15, which is being retired. 01/06/2020 08:01:00 AM EDT completed eCW1 ([facility]) IIV3. This is one of two codes replacing CVX 15, which is being retired. 01/06/2020 08:01:00 AM EDT completed eCW1 (Critical access hospital) INFLUENZA VACCINE QUADRIVALENT 2019- (65 YR UP)/MF59 [...] {tablet} active Ondansetron HCl 4 MG eCW1 ([facility]) 4 mg 01/09/2021 12:00:00 AM EDT tablet 15 TAKE ONE TABLET BY MOUTH EVERY 6 HOURS NEEDED FOR NAUSEA TAKE ONE TABLET BY MOUTH EVERY 6 HOURS A S NEEDED FOR NAUSEA SOLD: 01/09/2021 [facility] Docusate Sodium 100 MG Oral Capsule Docusate Sodium 100 MG 1 12:00:00 AM EDT 1.0 {capsule_as_needed} active Docusate Sodium 100 MG eCW1 ([facility]) 250 mg 01/06/2021 12:00:00 AM EDT tablet 8 TAKE TWO TABLETS BY MOUTH DAILY AT NOON FOR 4 DAYS TAKE TWO TABLETS BY MOUTH DAILY AT NOON FOR 4 DAYS TALYA [facility] POLYETHYLENE GLYCOL 3350 142 MG/ML Oral Solution [Kaley lax] MiraLax 17 GM MiraLax 17 GM 01/06/2021 12:00:00 AM EDT 1.0 {packet_mixed_with_8_ou nces_of_fluid} active MiraLax 17 GM eCW1 ([facility]) Insurance Providers Payer name Policy type / Coverage type Policy ID Covered republican ID Covered republican's relationship to schmitz Policy Schmitz Plan Information [facility] [id number] 80 [id number] ANSI-Commercial [id number] [facility]-Medicare Part B [id number] [facility]-Medicare Part B [id number] ANSI-Commercial [id number] MEDICARE [id number] A [facility] [id number] 80 [id number] [facility] Health Care Health Maintenance Organization (HMO) [id number] Self [facility] [id number] MEDICARE [id number] SP [id number] Problems, Conditions, and Diagnoses No Information Surgeries/Procedures Procedure Description Date Indications Data Source(s) OFFICE OUTPATIENT VISIT 25 MINUTES 01/17/2021 12:00:00 AM EDT [facility] ([facility], ) [facility]/DAY 25 MINUTES 01/06/2021 12:00:00 AM EDT [facility] ([facility]) [facility]/DAY 25 MINUTES 01/05/2021 12:00:00 AM EDT [facility] ([facility]) Results ID Date Data Source [id number] 01/04/2021 02:03:00 PM EDT [facility] Name Value Range Interpretation Code Description Data Marion rce(s) Supporting Document(s) SARS coronavirus 2 RNA [Presence] in Res piratory specimen by JONI with probe detection NEGATIVE [facility]SDKY This lab was ordered by [facility] a nd reported by [facility]. Procedure Social History Code Duration Value Status Description Data Source(s ) Smoking 01/17/2021 12:00:00 AM EDT Patient is a former smoker completed Patient is a former smoker [facility] ([facility], ) Smoking 06/26/2020 12:00:00 AM EDT Former Smoker completed Former Smoker eCW1 ([facility]) Smoking 06/26/2020 12:00:00 AM EDT Former Smoker completed Former Smoker eCW1 ([facility]) Vital Signs ID Date Data Source UNK Name Value Range Interpretation Code Description Data Source(s) Body height 65 [in_i] 65 [in_i] [facility] ([facility]) 5'5" Diastolic blood pressure 96 mm[Hg] 96 mm[Hg] [facility] ([facility]) Heart rate 102 /min 102 /min [facility] ([facility]) Oxygen saturation in Arterial blood by Pulse oximetry 96 % 96 % [facility] ([facility]) Room Air Body weight 238.00 [lb_av] 238.00 [lb_av] MEDEN T ([facility]) [place] body weight 136 [lb_av] 136 [[facility]_av[facility] Body weight 107.957 kg 107.957 kg [facility] ([facility]) Systolic blood pressure 160 mm[Hg] 160 mm[Hg] [facility] Body mass index (BMI) [Ratio] 39.6 kg/m2 39.6 k g/m2 [facility] ([facility]) Body surface area Derived from formula 2.13 m2 2.13 m2 [facility] ([facility]) Body weight 245.2 [lb_av] 245.2 [lb_av] eCW1 ([facility]) Body height 66.5 [in_i] 66.5 [in_i] eCW1 ([facility]) Body mass index (BMI) [Ratio] 38.98 kg/m2 38.98 kg/m2 eCW1 ([facility]) Heart rate 97 /min 97 /min eCW1 ([facility]) Respiratory rate 20 /min 20 /min eCW1 ([facility]) Body temperature 98.5 [degF] 98.5 [degF] eCW1 ( [facility]) Systolic blood pressure 120 mm[Hg] 120 mm[Hg] e CW1 ([facility]) Diastolic blood pressure 74 mm[Hg] 74 mm[Hg] eCW1 ([facility])
[2021-01-28] MEDS ORDERED: SIME125T PO (01:39)
[2021-01-28] MEDS ORDERED: HOME MED LIST COMPLETE! XX SCH (01:40)
--- NOTE | 2021-01-28 01:48 | REPVR ---
PROCEDURE INFORMATION: Exam: XR Chest Exam date and time: 01/27/2021 12:15 AM Age: 70 years old Clinical indication: Other: Chest pain TECHNIQUE: Imaging protocol: XR of the chest. Views: 1 view. COMPARISON: CR Chest, 2 view PA, Lat 01/17/2021 12:42 PM. Prior report has not been made available for review at the time of this emergent interpretation, however was requested. FINDINGS: LUNGS and PLEURAL SPACE: There is worsening confluent opacity at the left lung base, now occupying nearly 2/3 of the left hemithorax. This may be secondary to a combination of worsening pleural fluid and atelectasis, complex pleural fluid, and/or pleural/parenchymal mass. Clinical correlation is advised. For further characterization, consider CT with contrast as clinically appropriate. Radiographic follow-up is advised, to confirm resolution. No pneumothorax. There is mild atelectasis at the right lung base. MEDIASTINUM: There is no mediastinal shift or widening. CARDIAC SILHOUETTE: The cardiac silhouette is not well evaluated as it is partially obscured by opacity at the left lung base. BONY THORAX: There is thoracic scoliosis and degenerative change. IMPRESSION: Worsening opacity at the left lung base. Findings, differential and recommendations discussed above. Electronically signed by: Hammad Davis On 01/28/2021 01:47:35 AM
[2021-01-28 02:41] LABS: RSV AMPLIFICATION NEGATIVE (NEGATIVE)
[2021-01-28] MEDS ORDERED: MORPHINE 2 MG/ML 1ML VIAL (J2270) IV ONE (02:50)
[2021-01-28] MEDS ORDERED: hydrALAZINE 20MG/ML 1ML VIAL (J0360 PER 20MG) IV ONE (02:55)
--- NOTE | 2021-01-28 03:23 | HPEPDOC ---
General Date of Admission 01/28/21 Date of Service: Jan 28, 2021 Attending Physician: NHAN HUDSON MD Chief Complaint The patient is a 70-year-old male admitted with a reason for visit of Chest Jonny n. History of Present Illness History of present illness: Mr. Randhawa is a 70 year old male presenting to the emergency department for increasingly worsening shortness of breath "a few days" duration as well as persistent chest pain. He states the chest pain has been present for the last three weeks, is rated as an 8/10, and is located in the central and left lateral aspect of his chest. He decided to come to the ED today because he was so short of breath that he struggled to walk from one room in his house to another. He states that he coughs up a few tsp of white mucous per day and has not take any over the counter medications to help with his cough. He admits to having night sweats, subjective fevers, nausea, and difficulty sleeping because of the pain. He has difficulty lying flat and chooses to sleep in a recliner. He is not on any oxygen at home. Mr. Randhawa was hospitalized at [facility] for three days in the beginning of January 2021 for a large left sided pleural effusion. He underwent a thoracentesis with pigtail catheter placement (2000cc drained) and was found to have an exudative pleural effusion based on lights criteria. A 1.3cm nodule in his right middle lobe was found incidentally on repeat CT after the thoracentesis. Patient was discharged from the hospital with instructions to follow up with pulmonology in 1-2 weeks. In his PCP's note from 01/22/21 it is mentioned that the pleural fluid was not analyzed for cytology and thus the patient needs follow up with pulmonology for another thoracentesis (scheduled for 02/02/21) as well as a PET scan. Mr. Randhawa had a chest x ray on 01/17/21 which exhibited a recurrence of his pleural effusion. Patient is a FULL CODE. 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 HEENT: patient denies changes in vision, swollen glands, or difficulty swallowing Cardiovascular: patient admits to occasional heart palpitations and sharp/pressured chest pain in the center and left inferior aspect of his chest. Pulmonary: patient admits to productive cough, worsening shortness of breath, pain with deep inspiration. He denies wheezing. Abdomen: patient has had persistent nausea and 1 episode of vomiting last week. Patient has occasional diarrhea and denies constipation. He denies abdominal pain. Extremities: patient denies lower extremity edema, muscle weakness, or loss of sensation. Skin: patient denies rashes or easy bruising/bleeding Physical examination: General: Mr. Randhawa is an elderly gentleman who appears his stated age. His is sitting back at a 60 degree angle in the ER bed in no acute distress. He is breathing comfortably and appears well nourished. HEENT: PERRLA, EOMI, mucous membranes are dry, neck is supple, two submandibular lymph nodes are palpated: one on the right and the other on the left. Cardiovascular: rate of 97, rhythm is regular with the exception of occasional PACs, a 2/6 systolic ejection murmur is heard best in the 2nd ICS on the right. Pulses are 2+ throughout, capillary refill is <2 seconds Pulmonary: The patient is not using accessory muscles to breath and appears comforable, equal and regular air intake bilaterally, he can speak in complete sentences, no wheezes or rhonchi noted. Breath sounds are diminished in the lower lobe of left lung, there is dullness to percussion on the left side inferior to the 5th rib posteriorly. Scattered fine rales are heard throughout. The patient coughs occasionally during the exam Abdomen: soft, non tender to palpation in all four quadrant, positive bowel sounds. Extremities: there is non pitting edema noted bilaterally to mid calf. Mild hair loss is also noted. A fine tremor is noted in the bilateral upper extremities Skin: No rashes, osler nodes, or janeway lesions appreciated. Psych: Patient is alert and oriented. He appears tired, this may be secondary to his recent injection of morphine. Imaging: EKG: sinus rhythm with PACs. QTc [address] 01/28/21: LUNGS: There is a large slightly loculated appearing left pleural effusion. This is greater than on the prior study. This fluid has some mass effect upon mediastinal structures, slightly displaced towards the right and slight mass effect upon the left diaphragm, slightly displacing the spleen inferiorly. Malignant effusion or infected fluid cannot be excluded. There are areas of confluent parenchymal opacity within the left upper lobe and left lower lobe which may be secondary to compressive atelectasis, however infiltrate/pneumonia and/or underlying parenchymal mass cannot be excluded. Consider aspiration and culture of fluid as well as evaluation of fluid cytology, and/or bronchoscopy or mediastinoscopy with soft tissue diagnosis. No pneumothorax is seen on the current study. There are scattered ground-glass and reticular opacities, some of which are focal and slightly confluent involving the right lung, similar to the prior study. This may be secondary to an interstitial pneumonitis, including possibility of COVID-19 pneumonia. Interstitial lymphangitic malignancy or pulmonary edema or chronic interstitial fibrotic changes and scarring cannot be differentiated by this study. Clinical correlation is advised. There is an 11.1 mm noncalcified nodular opacity along the right minor fissure of uncertain significance. Given its subpleural location and slight planar appearance on coronal images. If the patient does not have a history of malignancy, for both low risk and high risk patients, consider CT Chest at 3 months, PET/CT, or biopsy. IMPRESSION:Worsening complex large left pleural effusion which demonstrates mass effect. Findings and recommendations discussed above. There are multiple lytic bone lesions, worrisome for metastatic disease. Findings and recommendations discussed above.The left lung is nearly collapsed. Interstitial opacities seen within the right lung to be correlated for interstitial pneumonitis. Assessment: Mr. Randhawa is a 70 year old male with past medical history of Left sided pleural effusion, Allergic rhinitis, Bariatric surgery, and a 1.3 cm right middle lobe spiculated nodule who presented to the emergency department for increasingly worsening shortness of breath and chest pain for "a few days" duration. In the emergency department he was found to have hypertensive urgency as well as a large left sided pleural effusion. Patient is being admitted for further workup and treatment. Plan: Recurrent left pleural effusion: loculated with some mass effect upon mediastinal structures, left lung is nearly collapsed. -Likely secondary to malignancy as patient also has lytic bone lesions and right middle lobe spiculated nodule seen on CT chest. -Patient currently has an O2 saturation of 92% on room air. -CT chest results as above -Patient hospitalized for left pleural effusion on 01/05/21 s/p thoracentesis with pigtail catheter (2000cc removed) -spoke to Dr. Lange who advised we contact Dr. Valle for possible PleurX catheter placement. Dr. Valle was contacted and will see patient today in hospital. -Pleural fluid will need to be analyzed for cytology and cultured. -Consult pulmonology-will defer to morning team, as patient likely needs a biopsy or bronchoscopy -WBC 6.5 -Blood cultures pending -procalcitonin pending Hypertensive urgency -patient had a BP of 250/112 in the ED upon presentation and was given 5mg of IV hydralazine his BP subsequently decreased to 171 systolic -started 5mg IV hydralazine q 6 hours prn if systolic BP >180 -started on lisinopril 10 qd, if hypertension persists will add HCTZ 12.5mg -Cardiac marker panel is negative -patient had an elevated blood pressure at last hospitalization in the beginning of January. -Patient is not currently prescribed any antihypertensives at home Rght middle lobe spiculated nodule -11.1 mm noncalcified nodular opacity along the right minor fissure, this is likely the same nodule seen at previous hospitalization -Patient was advised to follow up with pulmonology for a PET scan after his previous hospital discharge. -Patient will likely need bronchoscopy and/or biopsy Lytic bone lesions -seen on chest CT -these likely represent metastatic malignancy -Patient will need PET scan Nausea -continue zofran DVT prophylaxis: -Teds and Sequential Disposition: Will continue to treat and monitor patient blood pressure. I spoke to Dr. Valle this morning, he will evaluate the patient today in the hospital. Morning team will need to place a pulmonology consult as patient will likely need a bronchoscopy or biopsy. We appreciate Dr. Valle's involvement with this patient. Home Medications Scheduled Calcium Carb/Vitamin D3/Vit K1 (Viactiv 650 mg-12.5 Mcg Chew) 1 Each Tab.chew, 1 TAB PO BID, (Reported) Cholecalciferol (Vitamin D3) (Vitamin D3) 50 Mcg Capsule, 50 MCG PO BID, (Reported) Cyanocobalamin (Vitamin B-12) (B-12) 1,000 Mcg Tablet, 1,000 MCG PO DAILY, (Reported) Docusate Sodium (Docusate Sodium) 100 Mg Capsule, 100 MG PO BID Lisinopril (Lisinopril) 20 Mg Tablet, 20 MG PO DAILY Multivitamins (Thera M Plus Tablet) 1 Each Tablet, 1 TAB PO BID, (Reported) Scheduled PRN Oxycodone HCl/Acetaminophen (Percocet 5-325 mg Tablet) 1 Each Tablet, 1-2 TAB PO Q4-6HP PRN for pain Simethicone (Gas-X) 125 Mg Tab.chew, 125 MG PO TID PRN for BLOATING, (Reported) Tramadol HCl (Tramadol HCl) 50 Mg Tablet, 50 MG PO Q6HP PRN for pain Allergies Coded Allergies: No Known Allergies (Unverified , 01/04/21) A-FIB/CHADSVASC A-FIB History Current/History of A-Fib/PAF?: No Current PO Anticoag Therapy: No Vital Signs Vital Signs Date Time Temp Pulse Resp B/P (MAP) Pulse Ox O2 Delivery O2 Flow Rate FiO2 01/28/21 03:08 183/95 01/28/21 02:57 20 01/28/21 02:11 98 91 Room Air 01/27/21 23:27 97.9 Laboratory Data Labs 24H Laboratory Tests 2 01/28/21 00:07: Immature Granulocyte % (Auto) 0.2, Neutrophils (%) (Auto) 60.8, Lymphocytes (%) (Auto) 24.5, Monocytes (%) (Auto) 11.1H, Eosinophils (%) (Auto) 3.1H, Basophils (%) (Auto) 0.3, Neutrophils # (Auto) 4.0, Lymphocytes # (Auto) 1.6, Monocytes # (Auto) 0.7, Eosinophils # (Auto) 0.2, Basophils # (Auto) 0.0, Nucleated Red Blood Cells % (auto) 0.0, Anion Gap 9, Glomerular Filtration Rate > 60.0, Lactic Acid Level 1.4, Calcium Level 8.2L, Magnesium Level 2.1, Total Bilirubin 0.5, Aspartate Amino Transf (AST/SGOT) 36, Alanine Aminotransferase (ALT/SGPT) 33, Alkaline Phosphatase 180H, Total Creatine Kinase 68, Creatine Kinase MB 1.5, Creatine Kinase MB Relative Index 2.21, Troponin I < 0.02, EJ-Zzq-G-Type Natriuretic Peptide 198H, Total Protein 7.0, Albumin 2.9L, Albumin/Globulin Ratio 0.7 01/28/21 01:55: Coronavirus (COVID-19)(PCR) NEGATIVE, Influenza Type A (RT-PCR) NEGATIVE, Influenza Type B (RT-PCR) NEGATIVE, Respiratory Syncytial Virus (PCR) NEGATIVE CBC/BMP Laboratory Tests 01/28/21 00:07 Microbiology Microbiology 01/28/21 Blood Culture, Received Pending 01/28/21 Blood Culture, Received Pending Plan / VTE VTE Prophylaxis Ordered?: Yes GME ATTESTATION GME ATTESTATION My faculty preceptor for this patient encounter was physically present during the encounter and was fully available. All aspects of the patient interview, examination, medical decision making process, and medical care plan development were reviewed and approved by the faculty preceptor. The faculty preceptor is aware and concurs with the plan as stated in the body of this note and will a ttest to such by his/her cosignature. ATTENDING NOTE ILiudmila, have independently examined this patient and performed my own physical exam, as well as reviewed the documentation and edited where necessary. I have discussed in detail with the resident / student the findings and plan of treatment as documented by the resident / student and edited their note. I agree with their findings and treatment plan and have edited their documentation. I will continue to follow the patient during this hospital stay. ELAINE GHOTRA DO Jan 28, 2021 03:23 NHAN HUDSON MD Jan 31, 2021 04:28
[2021-01-28] MEDS ORDERED: MOM 30ML SUSPENSION UDC PO PRN (03:25)
[2021-01-28] MEDS ORDERED: MAALOX 30 ML SUSP *UDC PO PRN (03:25)
--- NOTE | 2021-01-28 03:42 | REPVR ---
PROCEDURE INFORMATION: Exam: CT Chest Without Contrast; Diagnostic Exam date and time: 01/28/2021 1:54 AM Age: 70 years old Clinical indication: Pain; Chest pressure; Additional info: Chest pain TECHNIQUE: Imaging protocol: Diagnostic computed tomography of the chest without contrast. 3D rendering (Not supervised by radiologist): MIP and/or 3D reconstructed images were created by the technologist. Radiation optimization: All CT scans at this facility use at least one of these dose optimization techniques: automated exposure control; mA and/or kV adjustment per patient size (includes targeted exams where dose is matched to clinical indication); or iterative reconstruction. COMPARISON: CT Chest without contrast 01/05/2021 1:32 PM Study limitations: Evaluation of mediastinal and hilar structures, for mass, inflammatory change, and vasculature, is suboptimal without contrast. FINDINGS: HEART AND VASCULATURE: Cardiac size is at the upper end of normal. No significant pericardial effusion. There is some calcification at the aortic valve. There is borderline fusiform aneurysmal dilation of the ascending thoracic aorta up to 4.2 cm in diameter. There is thoracic aortic atherosclerosis. Diameter of the main pulmonary trunk at 3.6 cm could be correlated for mild pulmonary arterial hypertension. Vascular patency is not evaluated on this study. MEDIASTINUM: There is slight shift of the midline trachea towards the right suggesting some left-sided mass effect. No mediastinal soft tissue gas. There is slight heterogeneity of the visualized thyroid gland which could be correlated clinically for any significance. No mediastinal hematoma is seen. Multiple prevascular lymph nodes noted up to 6.4 mm in short axis. Multiple paratracheal lymph nodes noted up to 13 mm in short axis. Azygoesophageal recess lymph node up to 19 mm in short axis noted. The pulmonary carlin are not well evaluated secondary to lack of contrast differentiation. Hilar lymphadenopathy cannot be excluded by this study. The significance of these lymph nodes is uncertain. Malignancy to be excluded. Clinical correlation is advised. Consider follow-up or further characterization. There is a small gas containing hiatal hernia. Mild esophageal wall thickening cannot be excluded on this study. Clinical correlation with any symptoms. LUNGS: There is a large slightly loculated appearing left pleural effusion. This is greater than on the prior study. This fluid has some mass effect upon mediastinal structures, slightly displaced towards the right and slight mass effect upon the left diaphragm, slightly displacing the spleen inferiorly. Malignant effusion or infected fluid cannot be excluded. There are areas of confluent parenchymal opacity within the left upper lobe and left lower lobe which may be secondary to compressive atelectasis, however infiltrate/pneumonia and/or underlying parenchymal mass cannot be excluded. Consider aspiration and culture of fluid as well as evaluation of fluid cytology, and/or bronchoscopy or mediastinoscopy with soft tissue diagnosis. No pneumothorax is seen on the current study. There are scattered ground-glass and reticular opacities, some of which are focal and slightly confluent involving the right lung, similar to the prior study. This may be secondary to an interstitial pneumonitis, including possibility of COVID-19 pneumonia. Interstitial lymphangitic malignancy or pulmonary edema or chronic interstitial fibrotic changes and scarring cannot be differentiated by this study. Clinical correlation is advised. There is an 11.1 mm noncalcified nodular opacity along the right minor fissure of uncertain significance. Given its subpleural location and slight planar appearance on coronal images. If the patient does not have a history of malignancy, for both low risk and high risk patients, consider CT Chest at 3 months, PET/CT, or biopsy. (Reference: [facility]). UPPER ABDOMEN: No free air or free fluid is seen within the visualized upper most abdomen. There is slight nodular enlargement of the visualized adrenal glands, incompletely assessed which may be secondary to hyperplasia or adenomatous change. Evaluation of hepatic parenchyma is significantly limited gastric postoperative changes are noted. MSK AND BODY WALL: Degenerative changes of the spine and bony thorax are noted. There is scoliosis. There is a lytic destructive appearing bone lesion involving the posterior aspect of the T2 vertebral body with a soft tissue component which may involve the T2/T3 right neural foramen and also minimally extending into the right subarticular zone of the spinal canal. There is a lytic lesion posteriorly within the right 4th rib. There is an ill-defined lytic lesion along the anterior aspect of the C7 vertebral body. There is a poorly defined lytic lesion with associated cortical destruction posteriorly involving the 9th rib; there is an additional posterior suspected small lytic left 9th rib lesion with some associated surrounding sclerosis. An left posterior 9th rib lesion is also suspected with slight cortical destruction of the anterior cortex. Collectively these findings are worrisome for metastatic disease. Further evaluation is advised. Consider soft tissue diagnosis or whole body PET. IMPRESSION: Worsening complex large left pleural effusion which demonstrates mass effect. Findings and recommendations discussed above. There are multiple lytic bone lesions, worrisome for metastatic disease. Findings and recommendations discussed above. The left lung is nearly collapsed. Interstitial opacities seen within the right lung to be correlated for interstitial pneumonitis. Differential as discussed above. Other findings and study limitations discussed above. Electronically signed by: Hammad Davis On 01/28/2021 03:41:13 AM
[2021-01-28] MEDS ORDERED: ONDANSETRON 4MG/2ML VIAL IV ONE (05:00)
--- OUTSIDE RECORDS SUMMARY | 2021-01-28 05:57 | CCD ---
Author Author [facility] Organization [facility] Address Unknown Phone Unavailable Care Team Providers Care Robotic Technician Name Role Phone Liudmila THOMPSON MD [...] law may result in a fine or detention sentence or both. A general authorization for the release of medical or other information is NOT sufficient authorization for further disc losure. Family History Family Member Name Family Member Gender Family Member Status Date o f Status Description Data Source(s) Unknown Unknown Problem [facility] ([facility]) Encounters Encounter Providers Location Date Indications Data Source(s ) Outpatient Attender: TYLRE Robert/Basil/Fracisco/ Beata 01/17/2021 03:15:00 PM EDT [facility] [place] [address] [facility] [address] 01/09/2021 12:00:00 AM EDT eCW1 ([facility]) Outpatient Attender: TYLER Robert/Basil/Fracisco/ Beata 01/06/2021 01:23:00 AM EDT [facility] ([facility], ) Outpatient Attender: TYLER Robert/Basil/Fracisco/ Reinsravani 01/05/2021 01:23:00 AM EDT [facility] ([facility], ) Outpatient [address] [facility] [address] 06/26/2020 12:00:00 AM EDT eCW1 ([facility]) Immunizations Vaccine Date Status Description Data Source(s) pneumococcal polysaccharide PPV23 01/09/2021 03:26:00 PM EDT comple willie [facility] ([facility], ) New in 2011. IIV4 01/02/2021 03:27:00 PM EDT completed [facility] ([facility], ) Moderna Covid-19 vaccine, mRNA, LNP-S, PF, 100 mcg/ 0. 5 mL 06/11/2020 02:26:00 PM EST completed [facility] ([facility]) COVID-19 dose #2 given elsewhere Unspecified 06/11/2020 07:3 4:00 AM EST completed eCW1 ([facility]) COVID-19 dose #2 given elsewhere Unspecified 06/11/2020 07:3 4:00 AM EST completed eCW1 ([facility]) COVID-19 VACCINE Moderna 06/11/2020 12:00:00 AM EST completed [facility] Vaccine Series Complete: YESThis Data wa s Submitted to [facility] [employer]. Moderna Covid-19 vaccine, mRNA, LNP-S, PF, 100 mcg/ 0. 5 mL 05/14/2020 02:25:00 PM EST completed [facility] ([facility]) COVID-19 dose #1 given elsewhere Unspecified 05/14/2020 07:3 4:00 AM EST completed eCW1 ([facility]) COVID-19 dose #1 given elsewhere Unspecified 05/14/2020 07:3 4:00 AM EST completed eCW1 ([facility]) COVID-19 VACCINE Moderna 05/14/2020 12:00:00 AM EST completed [facility] Vaccine Series Complete: NOThis Data was Submitted to [facility] [employer]. IIV3. This is one of two codes [...] {tablet} active Ondansetron HCl 4 MG eCW1 ([facility]) 4 mg 01/09/2021 12:00:00 AM EDT tablet 15 TAKE ONE TABLET BY MOUTH EVERY 6 HOURS NEEDED FOR NAUSEA TAKE ONE TABLET BY MOUTH EVERY 6 HOURS A S NEEDED FOR NAUSEA SOLD: 01/09/2021 [facility] Docusate Sodium 100 MG Oral Capsule Docusate Sodium 100 MG 1 12:00:00 AM EDT 1.0 {capsule_as_needed} active Docusate Sodium 100 MG eCW1 ([facility]) 250 mg 01/06/2021 12:00:00 AM EDT tablet 8 TAKE TWO TABLETS BY MOUTH DAILY AT NOON FOR 4 DAYS TAKE TWO TABLETS BY MOUTH DAILY AT NOON FOR 4 DAYS TALYA [facility] POLYETHYLENE GLYCOL 3350 142 MG/ML Oral Solution [Kaley lax] MiraLax 17 GM MiraLax 17 GM 01/06/2021 12:00:00 AM EDT 1.0 {packet_mixed_with_8_ou nces_of_fluid} active MiraLax 17 GM eCW1 (Pending sale to [facility]) Insurance Providers Payer name Policy type / Coverage type Policy ID Covered republican ID Covered republican's relationship to schmitz Policy Schmitz Plan Information [facility] [id number] 80 [id number] ANSI-Commercial [id number] [facility]-Medicare Part B [id number] [facility]-Medicare Part B [id number] ANSI-Commercial [id number] MEDICARE [id number] A [facility] [id number] [facility] Health Care Health Maintenance Organization (HMO) [id number] Self [facility] [id number] MEDICARE [id number] SP [id number] Problems, Conditions, and Diagnoses No Information Surgeries/Procedures Procedure Description Date Indications Data Source(s) OFFICE OUTPATIENT VISIT 25 MINUTES 01/17/2021 12:00:00 AM EDT [facility] ([facility], ) [facility]/DAY 25 MINUTES 01/06/2021 12:00:00 AM EDT [facility] ([facility]) [facility]/DAY 25 MINUTES 01/05/2021 12:00:00 AM EDT [facility] ([facility]) Results ID Date Data Source [id number] 01/04/2021 02:03:00 PM EDT [facility] Name Value Range Interpretation Code Description Data Marion rce(s) Supporting Document(s) SARS coronavirus 2 RNA [Presence] in Res piratory specimen by JONI with probe detection NEGATIVE [facility] This lab was ordered by [facility] a nd reported by [facility]. Procedure Social History Code Duration Value Status Description Data Source(s ) Smoking 01/17/2021 12:00:00 AM EDT Patient is a former smoker completed Patient is a former smoker [facility] ([facility], ) Smoking 06/26/2020 12:00:00 AM EDT Former Smoker completed Former Smoker eCW1 ([facility]) Smoking 06/26/2020 12:00:00 AM EDT Former Smoker completed Former Smoker eCW1 ([facility]) Vital Signs ID Date Data Source UNK Name Value Range Interpretation Code Description Data Source(s) Body height 65 [in_i] 65 [in_i] [facility] ([facility]) 5'5" Diastolic blood pressure 96 mm[Hg] 96 mm[Hg] [facility] ([facility]) Heart rate 102 /min 102 /min [facility] ([facility]) Oxygen saturation in Arterial blood by Pulse oximetry 96 % 96 % [facility] ([facility]) Room Air Body weight 238.00 [lb_av] 238.00 [lb_av] [facility] Systolic blood pressure 160 mm[Hg] 160 mm[Hg] M [facility] ([facility]) Body mass index (BMI) [Ratio] 39.6 kg/m2 39.6 k g/m2 [facility] ([facility]) Tonasket body weight 136 [lb_av] 136 [lb_av] [facility] Body weight 107.957 kg 107.957 kg [facility] ([facility]) Body surface area Derived from formula 2.13 m2 2.13 m2 [facility] ([facility]) Body weight 245.2 [lb_av] 245.2 [lb_av] W1 ([facility]) Body height 66.5 [in_i] 66.5 [in_i] eCW1 (Pending sale to [facility]) Body mass index (BMI) [Ratio] 38.98 kg/m2 38.98 kg/m2 eCW1 ([facility]) Heart rate 97 /min 97 /min eCW1 ([facility]) Respiratory rate 20 /min 20 /min eCW1 ([facility]) Body temperature 98.5 [degF] 98.5 [degF] eCW1 ( [facility]) Systolic blood pressure 120 mm[Hg] 120 mm[Hg] e CW1 ([facility]) Diastolic blood pressure 74 mm[Hg] 74 mm[Hg] eCW1 ([facility])
--- NOTE | 2021-01-28 07:53 | ECGEPIP ---
[facility] - ED Test Date: 2021-01-28 Pat Name: DELORES DAY Department: Room: [place] [address] Gender: Male Hospice Coordinator: NIKOLAY : 1950 Requested By: MARLI Olivas Order Number: [id number] Reading MD: Christianne Yip Measurements Intervals [place] Rate: 95 P: 55 MI: 146 QRS: 15 QRSD: 80 T: 18 QT: 364 QTc: 457 Interpretive Statements Sinus rhythm with premature atrial complexes Septal infarct , age undetermined NSTTW abnormalities similar 01/04/21 Electronically Signed on 01-28-2021 7:53:04 EDT by Christianne Yip
[2021-01-28] MEDS ORDERED: hydrALAZINE 20MG/ML 1ML VIAL (J0360 PER 20MG) IV PRN ×2 (09:00)
[2021-01-28] MEDS ORDERED: MIDAZOLAM INJ 2MG/2ML VIAL (J2250 PER 1MG) As Ordered ONE ×2 (09:01→09:02)
[2021-01-28] MEDS ORDERED: flumazeniL 0.5 MG/5 ML VIAL As Ordered ONE (09:01)
[2021-01-28] MEDS ORDERED: LIDOCAINE 1% MDV 20ML VIAL As Ordered ONE (09:02)
[2021-01-28] MEDS: ACETAMINOPHEN TAB 650MG DOSE (2X325MG) PO PRN ×2 (09:07→23:14)
[2021-01-28] MEDS ORDERED: MIDAZOLAM INJ 2MG/2ML VIAL (J2250 PER 1MG) IV ONE (10:00)
[2021-01-28] MEDS ORDERED: LIDOCAINE 1% MDV 20ML VIAL SC ONE (10:00)
[2021-01-28] MEDS ORDERED: NORCO, ANEXSIA 5/325MG TABLET (HYDROcodone/ACETAMINOPHEN) PO PRN (11:25)
[2021-01-28] MEDS ORDERED: PERCOCET 5MG/325MG TAB PO PRN ×2 (11:25)
[2021-01-28] MEDS ORDERED: LEVALBUTEROL 1.25 MG/0.5 ML CONCENTRATE NEB NEB PRN (11:25)
[2021-01-28] MEDS ORDERED: BISACODYL 10 MG SUPP PR PRN (11:25)
--- NOTE | 2021-01-28 11:48 | REP ---
INDICATION: chest tube. COMPARISON: Portable chest, 01/28/2021. TECHNIQUE: Upright portable AP chest image was obtained. FINDINGS: There has been interval placement of a small bore thoracostomy tube on the left. There is been interval decrease in size of the left pleural effusion. There is airspace disease in the lower lung zone on the left consistent with atelectasis or pneumonia. There is interstitial thickening on the right, could be peribronchial atelectasis or interstitial pneumonia. IMPRESSION: 1. Interval placement of a left thoracostomy tube with interval decrease in size of the left pleural effusion and partial re-expansion of the left lung. 2. There is left basilar airspace disease consistent with atelectasis or pneumonia. 3. Interstitial thickening on the right which could be peribronchial atelectasis or interstitial pneumonia. No significant change. <Electronically signed by Moirs Velazquez > 01/28/21 [id number]
[2021-01-28] MEDS: PANTOPRAZOLE 40MG TAB (PROTONIX) PO SCH (11:52)
[2021-01-28] MEDS: DOCUSATE SODIUM 100MG CAPSULE PO SCH ×2 (11:52→20:35)
[2021-01-28 12:27] LABS: LDH LACTATE DEHYDROGENASE 308 U/L (87-241)
[2021-01-28 12:34] LABS: PH BODY FLUID 7.424 UNITS (NOT ESTABLISHED); SOURCE, BODY FLUID pH PLEURAL
[2021-01-28 12:35] LABS: PLEURAL FL COLOR AMBER (COLORLESS); SOURCE, BODY FLUID PLEURAL
[2021-01-28 12:36] LABS: APPEARANCE, BODY FLUID HAZY (CLEAR)
[2021-01-28 12:54] LABS: AMYLASE, BODY FLUID 152 U/L (NOT ESTABLISHED); CHOLESTEROL, BODY FLUID 67 MG/DL (NOT ESTABLISHED); LDH, BODY FLUID 240 U/L (NOT ESTABLISHED); SOURCE, BODY FLUID ALBUMIN PLEURAL; SOURCE, BODY FLUID AMYLASE PLEURAL; SOURCE, BODY FLUID CHOL PLEURAL; SOURCE, BODY FLUID GLUCOSE PLEURAL; SOURCE, BODY FLUID LDH PLEURAL; SOURCE, BODY FLUID TOT PROTEIN PLEURAL; SOURCE, BODY FLUID TRIG PLEURAL; TOTAL PROTEIN, BODY FLUID 4.1 G/DL (NOT ESTABLISHED); TRIGLYCERIDE, BODY FLUID 15 MG/DL (NOT ESTABLISHED)
--- NOTE | 2021-01-28 12:54 | IPNPDOC ---
Text Note Date of Service The patient was seen on 01/28/21. NOTE Subjective: Patient continues to report some shortness of breath with midsternal chest pain. No fever or chills. Also patient reported hemoptysis. Objective: GENERAL APPEARANCE: Obese male HEENT: no scleral icterus, no JVD, EOMI CARDIOVASCULAR: S1S2 LUNGS: Diminished lung sounds on the right side, no sounds on the left side ABDOMEN: soft & not tender w palpation MUSCULOSKELETAL: no cyanosis, +1 leg swelling bilaterally INTEGUMENT: no generalized pallor NEUROLOGICAL: cranial nerve function from 2-12 intact, follows commands, speech not dysarthric Assessment and plan: Patient is 70 years old male with past medical history of recurrent left-sided pleural effusion, bariatric surgery who was admitted with increased shortness of breath and midsternal chest pain. Recurrent left pleural effusion Most likely secondary to malignancy Chest CT scan showed worsening complex large left pleural effusion which demonstrates mass effect. Findings and recommendations discussed above. There are multiple lytic bone lesions, worrisome for metastatic disease. Findings and recommendations discussed above.The left lung is nearly collapsed. Interstitial opacities seen within the right lung to be correlated for interstitial pneumonitis Cardiothoracic surgeon placed Pleurx, await cytology and pleural fluid analysis Patient does not have leukocytosis, procalcitonin negative Chest pain most likely attributed to large left pleural effusion EKG does not show any acute ischemic changes First troponin negative. Will repeat troponin Hypertensive urgency/hypertension Resolved I increased with dose of lisinopril to 20 mg daily Right middle lobe nodule 11.1 mm noncalcified nodular opacity along the right minor fissure, this is likely the same nodule seen at previous hospitalization -Patient was advised to follow up with pulmonology for a PET scan after his pre vious hospital discharge I talked to Dr. Lange he recommended pulmonary fluid cytology before possible bronchoscopy Lytic bone lesions Most likely metastatic secondary to lung cancer Await pleural fluid analysis Nausea Zofran IV as needed DVT prophylaxis: Teds and sequentials VS,Fishbone, I+O VS, Fishbone, I+O Laboratory Tests 01/28/21 00:07 Vital Signs Date Time Temp Pulse Resp B/P (MAP) Pulse Ox O2 Delivery O2 Flow Rate FiO2 01/28/21 11:53 146/84 01/28/21 10:09 112 01/28/21 08:38 97.6 24 95 Nasal Cannula 2.0 DROZHZHIN,NOEMÍ DO Jan 28, 2021 12:54
[2021-01-28] MEDS: LEVALBUTEROL 1.25 MG/0.5 ML CONCENTRATE NEB NEB SCH ×2 (14:50→20:43)
[2021-01-28] MEDS: ONDANSETRON 4MG/2ML VIAL IV PRN ×2 (18:36→23:07)
[2021-01-28] MEDS: traMADol 50 MG TAB PO PRN (18:41)
[2021-01-28] MEDS: HEPARIN SOD (PORCINE) 5000UNITS/ML 1ML VIAL/SYRINGE SC SCH (20:35)
[2021-01-28] MEDS ORDERED: METOPROLOL 5 MG/5 ML VIAL IV STA (22:49)
[2021-01-29] VITALS: BP 143/95
[2021-01-29] MEDS: LEVALBUTEROL 1.25 MG/0.5 ML CONCENTRATE NEB NEB SCH ×4 (02:00→20:58)
[2021-01-29 04:00] VITALS: BP 137/92
[2021-01-29 05:59] LABS: BASO % 0.6 % (0.0-1.0); EOS # 0.2 10^3/uL (0.0-0.5); EOS % 2.8 % (0.0-3.0); HEMATOCRIT 44.8 % (42.0-52.0); HEMOGLOBIN 14.8 g/dl (13.5-17.5); LYMPH # 1.2 10^3/uL (1.5-5.0); LYMPH % 17.2 % (24.0-44.0); MEAN CORPUSCULAR HEMOGLOBIN 31.2 pg (27.0-33.0); MEAN CORPUSCULAR VOLUME 94.3 fl (80.0-96.0); MONO # 0.8 10^3/uL (0.0-0.8); MONO % 12.3 % (2.0-8.0); NEUTROPHILS # 4.5 10^3/uL (1.5-8.5); NEUTROPHILS % 66.8 % (36.0-66.0); PLATELET COUNT, AUTOMATED 348 10^3/uL (150-450); RED BLOOD COUNT 4.75 10^6/uL (4.30-6.10); WHITE BLOOD COUNT 6.7 10^3/uL (4.0-10.0)
[2021-01-29 06:18] LABS: BLOOD UREA NITROGEN 16 MG/DL (7-18); CALCIUM LEVEL 8.4 MG/DL (8.8-10.2); CARBON DIOXIDE LEVEL 25 MEQ/L (21-32); CHLORIDE LEVEL 106 MEQ/L (98-107); CREATININE FOR GFR 0.78 MG/DL (0.70-1.30); GLOMERULAR FILTRATION RATE > 60.0 (>42); GLUCOSE, FASTING 123 MG/DL (70-100); MAGNESIUM LEVEL 2.2 MG/DL (1.8-2.4); SODIUM LEVEL 140 MEQ/L (136-145)
[2021-01-29] MEDS: traMADol 50 MG TAB PO PRN ×2 (06:39→21:13)
[2021-01-29] MEDS: ONDANSETRON 4MG/2ML VIAL IV PRN ×3 (07:34→21:12)
[2021-01-29 07:57] VITALS: BP 180/80
[2021-01-29] MEDS: DOCUSATE SODIUM 100MG CAPSULE PO SCH ×2 (08:28→21:07)
[2021-01-29] MEDS: PANTOPRAZOLE 40MG TAB (PROTONIX) PO SCH (08:28)
[2021-01-29] MEDS: HEPARIN SOD (PORCINE) 5000UNITS/ML 1ML VIAL/SYRINGE SC SCH ×2 (08:28→21:08)
--- NOTE | 2021-01-29 08:31 | REP ---
INDICATION: pleural effusion. COMPARISON: Portable chest, 01/28/2021. TECHNIQUE: AP portable chest image was obtained. FINDINGS: There is continued decrease in size of the left pleural effusion, with concomitant improved aeration of the left lung. There is some residual airspace disease in the base of the left lung. Large bore thoracostomy tube is noted. There is an air-fluid level in the base of the left hemithorax consistent with a hydropneumothorax. There has been interval decrease conspicuity of the interstitial thickening on the right. There is cardiomegaly without congestive heart failure. There is calcific vascular disease of the thoracic aorta. IMPRESSION: 1. Continued decrease in size of the left pleural effusion. 2. There has been interval development of a small hydropneumothorax on the left. 3. There is some residual airspace disease in the left lung base. 4. Other findings as noted. <Electronically signed by Moris Velazquez > 01/29/21 [id number]
--- NOTE | 2021-01-29 10:15 | RO ---
OPERATIVE NOTE DATE OF OPERATION: 01/28/2021 PREOPERATIVE DIAGNOSIS: Recurrent pleural effusion, probably malignant. POSTOPERATIVE DIAGNOSIS: Recurrent pleural effusion, probably malignant. PROCEDURE: Insertion of a left PleurX catheter. SURGEON: LEO BRUSH M.D. DESCRIPTION OF PROCEDURE: After obtaining informed consent, patient was prepped and draped in the usual sterile fashion. The entry and exit sites were marked. The entry site was infiltrated with 1% Lidocaine down to the pleura. The exploring needle was placed and withdrew berna fluid. A wire was then placed through the needle. The exit site was then ascertained and then infiltrated with 1% Lidocaine along with the course of the entire PleurX tunnel. An incision was made in the abdominal wall as well as around the wire site. A tunnel was then created from anterior and posterior and the PleurX catheter pulled through. The entry tract was dilated with a peel-away introducer. The PleurX catheter was then placed through the peel-away introducer and properly positioned. The catheter was secured to the abdominal wall with 3-0 silk suture. The skin was closed with running 4-0 Monocryl subcuticular sutured and covered with Dermabond. Patient tolerated the procedure well and chest x-ray is pending.
--- NOTE | 2021-01-29 10:15 | CR ---
CONSULTATION DATE: 01/28/2021 REFERRING PHYSICIAN: Patient is seen at the request of the Hospitalist Service for shortness of breath and a recurrent pleural effusion. HISTORY OF PRESENT ILLNESS: The patient is a 70-year-old white male who was admitted here approximately two weeks ago with a semi-loculated pleural effusion which was drained with a pigtail catheter. Histologically, it was not sent for cytology. It did look exudative and ascitic. At that point in time he presented with increasing shortness of breath with white sputum production and only an occasional cough. He had pressure like chest pain in the epigastrium and sharper chest pain in the posterior left hemithorax. These did not radiate. Today, he returns and is complaining again of increasing shortness of breath. He especially cannot even walk around his house without getting short of breath. It has been progressively getting worse over the last three days. He again has had an occasional cough with white sputum production. There has been no fever or chills but he has complained of breaking out in cold sweats. He has not noticed any lumps or bumps in his neck, axilla or groins. There is no dysphagia but he has lost 13 pounds of weight in the last two months. He is status post a gastric bypass procedure in the early . PAST MEDICAL HISTORY: Only the prior pleural effusions. MEDICATIONS AT HOME: Only vitamins. ALLERGIES: None. PAST SURGICAL HISTORY: Bariatric surgery in the early and the pigtail catheter two weeks ago in the left chest. HABITS: He used to smoke but stopped 30 years ago of mostly cigars. He has had two packs of cigarettes in his entire life. He used to smoke about six cigars a day. Does not imbibe in alcohol although he did quit 30 years ago. No illicit drugs. EXPOSURES: No dogs, birds or cats at home. No exposure to tuberculosis. SOCIAL HISTORY: He used to work at the [employer] and does not know if he was exposed to asbestos. 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 FAMILY HISTORY: Father at 49 of heart disease. Mother at 94 and brother is alive at the age of 60 status post an [place]. REVIEW OF SYSTEMS: CONSTITUTIONAL: See HPI. Complains of cold sweats that are intermittent and throughout the day. He has lost 13 pounds of weight as noted in the history of present illness. EYES: Without diplopia, without amaurosis fugax, without prior jaundice. He does state that he is developing cataracts. NOSE: Rare and occasional epistaxis. MOUTH: Full uppers and his own teeth on the lower jaw. RESPIRATORY: See HPI. CARDIAC: Denies prior myocardial infarctions or peripheral edema, or intermittent claudication. No tachycardias or palpitations. He does note orthopnea in the last few days and only sleeps about an hour but denies true paroxysmal nocturnal dyspnea. GI: With nausea and vomiting last week x1 without present abdominal pain, without diarrhea, constipation, melena, hematochezia, or hematemesis. : Without dysuria, hematuria or prior history of renal stones. ENDOCRINE: Without diabetes, without thyroid disease. NEUROLOGIC: Without paresthesias, paralyses or prior seizures. Denies prior CVAs. PSYCHIATRIC: Without pathological anxiety, depression or psychoses. PHYSICAL EXAMINATION: GENERAL: A well-developed obese white male in mild respiratory distress at rest but able to speak full sentences. VITAL SIGNS: Temperature is 97.6 with a heart rate of 107 and is sinus rhythm, respiratory rate of 24 without the use of accessory muscles who is 95% saturated on two liters nasal cannula His blood pressure is 157/86. HEENT: Eyes pupils are equal, round and reactive to light. Extraocular motions are intact. Sclera nonicteric. Nose without deformity. Mouth shows the mucous membranes to be pink and moist. Lips and commissures with no lesions, no thrush. He has full upper dentures and missing teeth on the bottom. Head is normocephalic. NECK: Supple. There is no jugular venous distention. No subcutaneous emphysema. Trachea is midline. There is no thyromegaly or lymphadenopathy. He has 2+ carotid upstrokes without bruits. LUNGS: Markedly decreased breath sounds on the left side with E to A egophony. His percussion note is completely dull on the left side. The right side shows normal vesicular sounds but with expiratory wheezing at the end of expiration. Percussion note is full to the diaphragm on the right. CARDIAC: Without murmurs, clicks, gallops or rubs. I cannot feel his PMI. S1 and S2 are normal. ABDOMEN: Soft, nontender. Bowel sounds are positive. There is no hepatomegaly. No CVA tenderness. EXTREMITIES: No pretibial edema. No calf tenderness. No differential swelling of the upper extremities. His legs are quite laden with adipose tissue, however but I do not feel true pretibial edema. LYMPHATICS: No axillary, subclavicular, supraclavicular or cervical lymphadenopathy, or epitrochlear adenopathy. NEUROLOGIC: Without paresthesias or paralyses. Cranial nerves II-XII are intact and gross motor and gross sensation are intact. Gait is not tested. PSYCHIATRIC: Awake, alert and oriented x3 with appropriate mood and affect and conversational. INVESTIGATIONS: White count is 6.5 with a hemoglobin and hematocrit of 15.2 and 46.2 respectively and a platelet count of 398,000. Differential shows 60% neutrophils, 24% lymphocytes, 11% monocytes. There are no immature forms or toxic granulations. Chemistries shows normal electrolytes with a BUN and creatinine of 14 and 0.73, a glucose of 104 and a calcium of 8.2 with a corresponding albumin of 2.9. There are no coagulation studies on him. He is COVID negative. His chest x-ray shows complete opacification and white out of the left lower hemithorax. Right costophrenic angle is sharp, however. There is a slight shift to the right of the mediastinum but he is also slightly rotated. CT scan confirms the pleural effusion with compressed left lower lobe. I do not see an evident endobronchial lesion. There is loculation at the apex but it is in communication with the lower portion of the pleura. He has an upper lobe infiltrate, almost ground-glass. There are a number of other patchy ground-glass areas throughout the upper lobe and the lower lobe. There looks to be a nodule in the right middle lobe which measures about 1 cm. I do not see anything specific in the expanded left upper lobe. He may have a lumpy bumpy pleura on the left side. The liver looks to be intact. The right adrenal has a normal configuration as does the left adrenal. However, on the left adrenal there may be an adenomatous mass whose density is -3 Hounsfield units. It is not quite fatty, however. There are also lytic lesions at T2 and at least the 9th rib and maybe the 4th rib. This looks to be diffuse metastatic disease. His last pleural fluid analysis as noted surprisingly did not include cytology. It did come back with a pH of 7.49, a glucose of 58 and LDH of 256. The serum LDH at that time was 268 making it exudative. There were 1000 white cells of which 98% were mononuclear lymphocytes. Bacteriology was negative and there were no organisms seen. IMPRESSION: 1. Recurrent pleural effusions in the last two weeks. 2. Respiratory distress and impending failure. 3. Probable metastatic carcinoma with a malignant pleural effusion. 4. Expiratory wheezing. PLAN/DISCUSSION: His most pressing problem right now is his recurrent pleural effusion and shortness of breath. Because it is recurrent in such a short period of time I will place a PleurX catheter. We will definitely send the pleural fluid off for pathological examination along with cytology and cell block. Depending upon the answer we get, we may have to biopsy one of his lung lesions. Will obtain a CT scan after completion of the drainage tomorrow. I expect he has at least 2 liters of fluid in him and I will only drain one today and leave one to be drained tomorrow for teaching purposes to instruct the patient in PleurX catheter use and care. After that will obtain a CT scan.
--- NOTE | 2021-01-29 15:55 | IPNPDOC ---
Text Note Date of Service The patient was seen on 01/29/21. NOTE Subjective: No new acute events overnight. 700 cc of pleural fluid was evac uated in the morning. No fever or chills reported Objective: GENERAL APPEARANCE: Obese male HEENT: no scleral icterus, no JVD, EOMI CARDIOVASCULAR: S1S2 LUNGS: Diminished lung sounds bilaterally, Pleurx in place ABDOMEN: soft & not tender w palpation MUSCULOSKELETAL: no cyanosis, +1 leg swelling bilaterally INTEGUMENT: no generalized pallor NEUROLOGICAL: cranial nerve function from 2-12 intact, follows commands, speech not dysarthric Assessment and plan: Patient is 70 years old male with past medical history of recurrent left-sided pleural effusion, bariatric surgery who was admitted with increased shortness of breath and midsternal chest pain. Recurrent left pleural effusion Most likely secondary to malignancy Chest CT scan showed worsening complex large left pleural effusion which de monstrates mass effect. Findings and recommendations discussed above. There are multiple lytic bone lesions, worrisome for metastatic disease. Findings and recommendations discussed above.The left lung is nearly collapsed. Interstitial opacities seen within the right lung to be correlated for interstitial pneumonitis Cardiothoracic surgeon placed Pleurx, await cytology and pleural fluid analysis showed exudate Patient does not have leukocytosis, procalcitonin negative Chest x-ray on 01/30/2020 showed 1. Continued decrease in size of the left pleural effusion. 2. There has been interval development of a small hydropneumothorax on the left. Chest pain most likely attributed to large left pleural effusion EKG does not show any acute ischemic changes First troponin negative. Continue to monitor Hypertensive urgency/hypertension Resolved I increased with dose of lisinopril to 40 mg daily Right middle lobe nodule 11.1 mm noncalcified nodular opacity along the right minor fissure, this is likely the same nodule seen at previous hospitalization -Patient was advised to follow up with pulmonology for a PET scan after his previous hospital discharge I talked to Dr. Lange he recommended pulmonary fluid cytology before possible bronchoscopy Lytic bone lesions Most likely metastatic secondary to lung cancer Await pleural fluid analysis Nausea Zofran IV as needed DVT prophylaxis: Teds and sequentials VS,Fishbone, I+O VS, Fishbone, I+O Laboratory Tests 01/29/21 05:25 Vital Signs Date Time Temp Pulse Resp B/P (MAP) Pulse Ox O2 Delivery O2 Flow Rate FiO2 10/25/21 08:30 142/80 01/29/21 07:57 98.0 87 18 97 Room Air 01/28/21 16:00 2.0 I&O- Last 24 Hours up to 6 AM 01/29/21 06:00 Intake Total 1380 ml Output Total 2100 ml Balance -720 ml NOEMÍ HOWARD DO Jan 29, 2021 15:55
[2021-01-29 16:00] VITALS: BP 132/86
[2021-01-29 20:00] VITALS: BP 142/98
--- NOTE | 2021-01-29 21:03 | ECGEPIP ---
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 Septal infarct , age undetermined Compared to prior tracings(2) in the systems. No remarkable changes but lead m misplacement. Electronically Signed on 01-29-2021 21:03:48 EDT by Omar Liu
[2021-01-30] VITALS: BP 164/99
[2021-01-30] MEDS: LEVALBUTEROL 1.25 MG/0.5 ML CONCENTRATE NEB NEB SCH ×3 (02:00→13:17)
[2021-01-30 04:00] VITALS: BP 155/91
[2021-01-30] MEDS ORDERED: ISOVUE-370 76% 100ML VIAL As Ordered ONE (07:37)
[2021-01-30 08:00] VITALS: BP 166/88
[2021-01-30 08:48] LABS: BASO % 0.5 % (0.0-1.0); EOS # 0.1 10^3/uL (0.0-0.5); EOS % 1.5 % (0.0-3.0); HEMATOCRIT 49.2 % (42.0-52.0); HEMOGLOBIN 15.9 g/dl (13.5-17.5); LYMPH # 0.9 10^3/uL (1.5-5.0); LYMPH % 10.9 % (24.0-44.0); MEAN CORPUSCULAR HEMOGLOBIN 31.1 pg (27.0-33.0); MEAN CORPUSCULAR HGB CONC 32.3 g/dl (32.0-36.5); MEAN CORPUSCULAR VOLUME 96.3 fl (80.0-96.0); MONO # 0.8 10^3/uL (0.0-0.8); MONO % 9.4 % (2.0-8.0); NEUTROPHILS # 6.4 10^3/uL (1.5-8.5); NEUTROPHILS % 77.2 % (36.0-66.0); PLATELET COUNT, AUTOMATED 384 10^3/uL (150-450); RED BLOOD COUNT 5.11 10^6/uL (4.30-6.10); WHITE BLOOD COUNT 8.2 10^3/uL (4.0-10.0)
[2021-01-30] MEDS: HEPARIN SOD (PORCINE) 5000UNITS/ML 1ML VIAL/SYRINGE SC SCH (09:05)
[2021-01-30] MEDS: DOCUSATE SODIUM 100MG CAPSULE PO SCH (09:05)
[2021-01-30] MEDS: PANTOPRAZOLE 40MG TAB (PROTONIX) PO SCH (09:06)
[2021-01-30 09:07] VITALS: BP 166/88
[2021-01-30] MEDS: traMADol 50 MG TAB PO PRN (09:07)
--- NOTE | 2021-01-30 09:13 | REP ---
INDICATION: underlying lung mass? COMPARISON: Multiple the latest 01/28/2021 TECHNIQUE: Standard helical technique after the intravenous administration of 100 cc Isovue 370 FINDINGS: There is no significant change in appearance of the mediastinum or pulmonary carlin. There is mild adenopathy status quo. The large left sided pleural effusion has nearly completely resolved. A minimal residual persists. A left-sided thoracotomy tube has been placed the tip of which is in the upper lobe region posteriorly. Respiratory motion artifact obscures the imaged upper abdomen. There is no significant change in the appearance of the upper abdomen compared to the prior exam. There is no significant change in appearance of the osseous structures. Evaluation of the lung portillo shows no change stable asymmetric densities throughout the right lung with respiratory motion artifact obscuring the mid and lower lung zones bilaterally. There is a right middle lobe nodule which is unchanged. The left lung is significantly better aerated. A small left-sided pneumothorax is evident. IMPRESSION: 1. Near complete resolution of the left pleural effusion secondary to chest tube placement as described above. 2. Chronic lung field changes and limitations as described above. 3. Unchanged adenopathy. 4. Other findings as described above. <Electronically signed by Oscar Estes > 01/30/21 [id number]
[2021-01-30 09:18] LABS: BLOOD UREA NITROGEN 18 MG/DL (7-18); CALCIUM LEVEL 8.9 MG/DL (8.8-10.2); CARBON DIOXIDE LEVEL 27 MEQ/L (21-32); CHLORIDE LEVEL 104 MEQ/L (98-107); CREATININE FOR GFR 0.69 MG/DL (0.70-1.30); GLOMERULAR FILTRATION RATE > 60.0 (>42); GLUCOSE, FASTING 125 MG/DL (70-100); MAGNESIUM LEVEL 2.2 MG/DL (1.8-2.4); SODIUM LEVEL 137 MEQ/L (136-145)
[2021-01-30] MEDS: ONDANSETRON 4MG/2ML VIAL IV PRN (09:20)
--- NOTE | 2021-01-30 10:16 | REP ---
INDICATION: pleural effusion COMPARISON: 01/29/2021. TECHNIQUE: PA/Lateral FINDINGS: The small left hydropneumothorax has decreased. Mild bibasilar parenchymal opacities are stable. Left chest tube remains in place. The heart and mediastinum are unchanged. IMPRESSION: Decreased size of small left hydropneumothorax. Otherwise stable. <Electronically signed by Rishi Urbina > 01/30/21 [id number]
--- NOTE | 2021-01-30 11:08 | IPN ---
PROGRESS NOTE DATE: 01/29/2021 SUBJECTIVE: Mr. Randhawa is doing better today and breathing a whole lot better. However, he is complaining of pain after his drainage early this morning prior to his chest x-ray. His vital signs shows a T-max of 97.9 with a heart rate that ranges between 107 and 80 and is sinus rhythm, respiratory rate of 16 to 18 without the use of accessory muscles who is 94 to 97% saturated on room air and his blood pressure is ranging between 180/80 to 132/86. His intake and output over the past 24 hours has been recorded as 1380 in and 2100 out for a negativity of 720 ml, 1000 ml was taken off the PleurX catheter last night and 700 ml this morning. He weighs 104 kilos today compared to 106 kilos yesterday. OBJECTIVE: On physical examination he has some scattered rhonchi and faint rales at the end of inspiration on the left side. Percussion note is full to the diaphragm. Cardiac exam is without murmurs, clicks, gallops or rubs. I cannot feel his PMI. S1 and S2 are normal. Abdomen is soft, nontender. Bowel sounds are positive. There is no hepatomegaly. No CVA tenderness. He does have a subcutaneous mass just adjacent to his prior surgical incision. This is rather firm and not very movable. He says he has had this for a very long time. Extremities shows trace pretibial edema. No calf tenderness. No differential swelling of the upper extremities. Skin is warm, dry and perfused without cyanosis or mottling including that of nailbeds and knees. Neck is supple. There is no jugular venous distention. No subcutaneous emphysema. Trachea is midline. Mouth shows the mucous membranes to be pink and moist, lips and commissures with no lesions or thrush. Eyes shows the pupils to be equal and reactive. Extraocular muscles intact. Sclera anicteric. Neurologic: Cranial nerves II-XII are intact. Normal gross motor, gross sensation is intact. Gait is not tested. Psychiatric shows him to be awake, alert and oriented x3 with appropriate mood and affect and conversational. His white count today is 6.7 with a hemoglobin and hematocrit of 14.8 and 44.8, essentially unchanged from yesterday with a platelet count of 348,000. Differential shows 66% neutrophils, __% lymphocytes and 12% monocytes. There are no immature forms or toxic granulations. His electrolytes are normal with a BUN and creatinine of 16 and 0.78 with a glucose of 123 with a calcium of 8.4 and magnesium of 2.2. His pleural fluid shows a pH of 7.42 with a glucose of 94 and an LDH of 240 with a corresponding serum LDH of 306. He has 1141 white cells, 98% of which are mononuclear lymphocytes, this therefore looks to be an exudative effusion but normal glycemic. I did speak with Dr. Renner of pathology today in the lab and his cytology is definitely malignant. The cell block will be out tomorrow with staining to give us more of an idea of the malignant cell type and primary. IMPRESSION: 1. Recurrent pleural effusion, left side, status post placement of a PleurX catheter. 2. Respiratory distress and pending failure, resolved. 3. Metastatic carcinoma, final pathology pending. 4. Expiratory wheezing, resolved. PLAN/DISCUSSION: We will obtain a CT scan of him tomorrow after draining him tomorrow morning. Will then be able to ascertain what is underlying in the expanded lung parenchyma. Will await final pathology.
[2021-01-30] MEDS ORDERED: TRAM50TA2 PO (11:25)
[2021-01-30] MEDS ORDERED: PERC5TAB12 PO (11:29)
--- NOTE | 2021-01-30 12:38 | IPN ---
PROGRESS NOTE DATE: 01/30/2021 SUBJECTIVE: Mr. Randhawa is doing quite well today. He is breathing well and he does not have pain after his drainage today. His vital signs show a T-max of 99.5 with a heart rate that ranges between 76 and 103 and is sinus rhythm, respiratory rate of 18 to 19 without the use of accessory muscles, who is 95 to 97% saturated on 4 liters nasal cannula. His blood pressure is ranging between 166/88 to 155/91. His intake and output over the past 24 hours has been recorded as 950 in and 1450 out for a negativity of 500 ml. He was drained of 400 ml today from the PleurX catheter. He weighs 106.5 kilos today, compared to 104 kilos yesterday. OBJECTIVE: His lungs shows equal breath sounds on either side with normal vesicular sounds without wheezes, rales or rhonchi. Percussion note is full to the diaphragm. Cardiac exam is without murmurs, clicks, gallops or rubs. I cannot feel his PMI. S1 and S2 are normal. Abdomen is soft and nontender. Bowel sounds are positive. There is no hepatomegaly. No CVA tenderness. Extremities show no pretibial edema, no calf tenderness. No differential swelling of the upper extremities. Skin is warm, dry and perfused without cyanosis or mottling including that of nailbeds and knees. Neck is supple. There is no jugular venous distention. No subcutaneous emphysema. Trachea is midline. Skin is warm, dry and perfused. Extremities show 1+ pretibial edema without calf tenderness. Mouth shows the mucous membranes to be pink and moist. Lips and commissures without lesions. No thrush. Eyes shows the pupils equal and reactive. Extraocular motions intact. Sclera nonicteric. Neurologic: Cranial nerves II-XII intact, normal gross motor, gross sensation intact. Gait is not tested. Psychiatric shows him to be awake, alert and oriented x3 with appropriate mood and affect and conversational. His hemoglobin and hematocrit are 15.9 and 49.2 respectively with a white count of 8.2. Platelet count is 384,000. Differential shows 77% neutrophils, 10% lymphocytes and 9% monocytes. There are no immature forms or toxic granulations. His electrolytes are normal with a BUN and creatinine of 18 and 0.69, glucose of 125, calcium of 8.9 and magnesium of 2.2. I have gone over his pathology slides with Dr. Renner of pathology. His pleural fluid with cell block shows numerous malignant cells with a large nuclear cytoplasmic ratio and bizarre looking nuclei. They are not in clumps, however and they are single cells. We will await immuno-stains later today. The slides may need to be sent out for more markers. His chest CT today shows the lungs fully expanded to the chest wall. There is still the ground-glass appearance in the right upper lobe but it looks to be dissipating. There is a small quantity of air from introduction of the PleurX catheter. I do not see any definite masses in the lung. He has minimal hilar and mediastinal lymphadenopathy. The CT scan was done today with contrast. There are no kidney lesions on that portion of the kidneys that are visualized nor are there any liver lesions. The adrenals have a normal configuration. The left adrenal may very well have a mass within it, probably an adenoma. There is no pericardial effusion. His chest x-ray today shows his lungs fully expanded to chest wall with sharp costophrenic angles and the PleurX catheter is in a good place. IMPRESSION: 1. Recurrent malignant pleural effusion, primary still undetermined. 2. Status post placement of PleurX catheter. 3. Respiratory distress and impending failure, resolved. 4. Metastatic carcinoma. Final pathology pending. 5. Expiratory wheezing, resolved. PLAN/DISCUSSION: Will have to await final pathology. Will get immuno-stains back today but they may not be enough to determine the primary. I have no objection to him going home today and I have spoken to Dr. Thomas, the Hospitalist in preparations to send him home. He should drain himself every other day. He is asking for patient family services consult and we will certainly undertake that. He will need to return to see me in one week in post hospitalization follow-up. He will also need to be followed up in Oncology to await and workup the final primary and diagnosis.
[2021-01-30] MEDS ORDERED: LISI20TA33 PO (13:10)
--- NOTE | 2021-01-30 19:36 | DS.PDOC ---
Discharge Summary General Date of Admission Jan 28, 2021 at 05:51 Date of Discharge 01/30/21 Discharge Summary DICTATED DISCHARGE SUMMARY JOB # [id number] Vital Signs/I&Os Vital Signs Date Time Temp Pulse Resp B/P (MAP) Pulse Ox O2 Delivery O2 Flow Rate FiO2 01/30/21 12:00 Room Air 01/30/21 09:45 18 01/30/21 09:07 166/88 01/30/21 08:00 97.4 103 01/30/21 04:00 97 I&O- Last 24 Hours up to 6 AM 01/30/21 06:00 Intake Total 1310 ml Output Total 2700 ml Balance -1390 ml Laboratory Data Labs 24H Laboratory Tests 2 01/30/21 08:24: Immature Granulocyte % (Auto) 0.5, Neutrophils (%) (Auto) 77.2H, Lymphocytes (%) (Auto) 10.9L, Monocytes (%) (Auto) 9.4H, Eosinophils (%) (Auto) 1.5, Basophils (%) (Auto) 0.5, Neutrophils # (Auto) 6.4, Lymphocytes # (Auto) 0.9L, Monocytes # (Auto) 0.8, Eosinophils # (Auto) 0.1, Basophils # (Auto) 0.0, Nucleated Red Blood Cells % (auto) 0.0, Anion Gap 6L, Glomerular Filtration Rate > 60.0, Calcium Level 8.9, Magnesium Level 2.2 CBC/BMP Laboratory Tests 01/30/21 08:24 Microbiology Microbiology 01/28/21 Acid Fast Stain, Received Pending 01/28/21 Mycobacterial Culture, Received Pending 01/28/21 Fungal Smear, Received Pending 01/28/21 Fungal Culture, Received Pending 01/28/21 Gram Stain - Final, Complete 01/28/21 Body Fluid Culture - Final, Complete 01/28/21 Anaerobic Culture - Final, Complete 01/28/21 Blood Culture - Preliminary, Resulted No Growth after 48 hours. All Specime... 01/28/21 Blood Culture - Preliminary, Resulted No Growth after 48 hours. All Specime... Discharge Medications Scheduled Calcium Carb/Vitamin D3/Vit K1 (Viactiv 650 mg-12.5 Mcg Chew) 1 Each Tab.chew, 1 TAB PO BID, (Reported) Cholecalciferol (Vitamin D3) (Vitamin D3) 50 Mcg Capsule, 50 MCG PO BID, (Reported) Cyanocobalamin (Vitamin B-12) (B-12) 1,000 Mcg Tablet, 1,000 MCG PO DAILY, (Reported) Docusate Sodium (Docusate Sodium) 100 Mg Capsule, 100 MG PO BID Lisinopril (Lisinopril) 20 Mg Tablet, 20 MG PO DAILY Multivitamins (Thera M Plus Tablet) 1 Each Tablet, 1 TAB PO BID, (Reported) Scheduled PRN Oxycodone HCl/Acetaminophen (Percocet 5-325 mg Tablet) 1 Each Tablet, 1-2 TAB PO Q4-6HP PRN for pain Simethicone (Gas-X) 125 Mg Tab.chew, 125 MG PO TID PRN for BLOATING, (Reported) Tramadol HCl (Tramadol HCl) 50 Mg Tablet, 50 MG PO Q6HP PRN for pain Allergies Coded Allergies: No Known Allergies (Unverified , 01/04/21) NORA DEAL MD Jan 30, 2021 19:36
== END 2021-01-30 14:54 | disposition home health service (06) | DRG 181 ==
LOC: M ED 23:26 → M ED INP 01-28 05:51 → M PCU 01-28 08:05
PROVIDERS: ADMIT Family Medicine; ATTEND General Practice
PROC: 0W9B3ZZ Drainage of Left Pleural Cavity, Percutaneous Approach (ICD-10-PCS; principal; 2021-01-28)
DX: C34.90 Malignant neoplasm of unspecified part of unspecified bronchus or lung (principal); C79.51 Secondary malignant neoplasm of bone; J91.0 Malignant pleural effusion; Z87.891 Personal history of nicotine dependence; I16.0 Hypertensive urgency; Z79.899 Other long term (current) drug therapy

== ENCOUNTER → 2021-02-05 | Outpatient (CLI) | payer MEDICARE ==
[~2021-02-05] MED LIST changes: +LISI20TA33 PO; +PERC5TAB12 PO; +SIME125T PO
--- NOTE | 2021-02-05 10:48 | REP ---
INDICATION: PLEURAL EFFUSION, NOT ELSEWHERE CLASSIFIED. COMPARISON: Multiple the latest 01/30/2021 at 7:35 a.m. TECHNIQUE: PA and lateral FINDINGS: The interstitial markings are diffusely increased compared to the prior exam. Patchy left basilar opacities seen previously have increased slightly. There are subtle but new right lower lobe opacities. The thoracotomy tube is unchanged. Cardiomediastinal silhouette appears stable. The osseous structures appear stable. IMPRESSION: New bibasilar opacities. Subsegmental atelectatic change or developing pneumonia. The interstitial markings have diffusely increased from the prior exam. There is mild interstitial edema. <Electronically signed by Oscar Estes > 02/05/21 1846
== END ==
LOC: M PLALAB 08:53 → M PLAIMG 08:53
PROVIDERS: ATTEND Thoracic Surgery (Cardiothoracic Vascular Surgery)
DX: J90 Pleural effusion, not elsewhere classified (principal)

== ENCOUNTER 2021-02-12 10:45 | Emergency (ER) | payer MEDICARE ==
[~2021-02-12] VITALS: Ht 172.7 cm; Wt 100.0 kg
--- OUTSIDE RECORDS SUMMARY | 2021-02-12 10:50 | CCD ---
Author Author [facility] Organization [facility] Address Unknown Phone Unavailable Care Team Providers Care Pie Bottomer Name Role Phone Clarisse Boggs Unavailable PROBLEMS Type Condition ICD9-CM Code [id number] Code Onset Dates Condition S tatus W/U Status Risk SNOMED Code Notes Problem Heart murmur R01.1 Active confirmed [id number] Described in past and he has minimal findings on examination. Problem Lung nodule R91.1 Active confirmed [id number] Patient has a 1.3 cm right middle lobe lung nodule, spiculated, by CT scan on January 05, 2021. A PET scan is pending and he has follow-up with his bar back. Problem Allergic rhinitis J30.9 Active confirmed 61 766475 Stable on intranasal steroid therapy seasonally. Problem Bariatric surgery status Z98.84 Active confirmed [id number] Had surgery in 2002; I can't recall what type but suspect it was a Mckenzie-en-Y procedure. He is doing well with normal vitamin levels and adequate nutritional status. ALLERGIES No Known Allergies ENCOUNTERS from 1950 to 2021-01-31 Encounter Location Date Provider Diagnosis [id number] [facility] [phone] [place] [address] Jan, Clarisse Boggs IMMUNIZATIONS Vaccine Route Administration Date Status Zoster 0.65mL Zostavax Unknown June 17, 2011 Administe red Influenza (High Dose 65 & up) IM Intramuscular Jan 11, 2015 A dministered Influenza (High Dose 65 & up) IM Intramuscular Feb 13, 2016 A dministered Influenza Pharmacy Given Unknown Dec 11, 2020 Adminis tered COVID-19 dose #1 given elsewhere Unspecified Unknown May 14, 2020 Administered COVID-19 dose #2 given elsewhere Unspecified Unknown Mar ch 07, 2021 Administered Influenza 6mo & up Fluzone Unknown Jan 14, 2014 Admin istered Influenza Pharmacy Given Unknown Jan 06, 2020 Adminis tered Influenza (High Dose 65 & up) Unknown Jan 09, 2018 Ad ministered Influenza (High Dose 65 & up) Unknown Feb 14, 2017 Ad ministered Pneumococcal Adult 0.5mL Pneumovax 23 ID Intradermal [...] Notes Start Da te End Date Status Cyanocobalamin 1000 MCG 1 cap Orally once daily Active Ondansetron HCl 4 MG 1 tablet Orally every 6 hours as needed Jan, Not-Taking Multiple Vitamin _ 2 tablets Orally Once a day for 100 days Active Viactiv 500-500-40 MG-UNT-MCG 1 tablet with a meal Ora lly Twice a day for 100 days Active Vitamin D 2000 UNIT 1 tablet Orally Twice a day for 225 days Active Lisinopril 20 MG 1 tablet Orally Once a day for 30 day(s) Active traMADol HCl 50 MG 1 tablet Orally Every 6 hour s as needed for pain MDD 4 tablets Jan, Active Docusate Sodium 100 MG 1 capsule Orally twice daily on hospi brodie discharge 01/06/21 Jan, Active oxyCODONE-Acetaminophen 5-325 MG 1-2 tablets as needed Orally every 4-6 hrs MDD 6 tablets Active MiraLax 17 GM 1 packet mixed with 8 ounces of fluid Orally Once a day for 30 day(s) on hospital discharge 01/06/21 Jan, No t-Taking PROCEDURES No Information RESULTS No Results REASON FOR VISIT TCM/ACO [facility] Hospital D/C 01/30; Exertional Dyspnea MEDICAL (GENERAL) HISTORY Type Description Date Medical History Allergic rhinitis Medical History Bariatric surgery status Surgical History Appendectomy 11/1979 Surgical History Bariatric Surgery 03/2003 Surgical History Colonoscopy 06/2004 Surgical History Colonoscopy 10/2015 Surgical History Thorancentesis with pigtail catheter left in place ([facility] Inpatient) 01/05/2021 Hospitalization History [facility]- Pleural effusion with a telectasis of the left lung, pneumonia, constipation 01/04-01/06/2021 Goals Section No Information Health Concerns No Information MEDICAL EQUIPMENT No Information MENTAL STATUS No Information FUNCTIONAL STATUS No Information ASSESSMENTS Encounter Date Diagnosis Assessment Notes Treatment Notes Treatm ent Clinical Notes Jan, Other Discussion with patient PLAN OF TREATMENT Next Appt Details Provider Name:Clarisse Boggs, 2020-04 0 08:30:00 AM, [address] [place] [id number], [place], [phone] Provider Name:Feliberto Gamble 2021-04-03 09 :00:00 AM, [address] [place] [id number], [place], [address], Provider Name:Feliberto Gamble, 2021-06-25 07 :30:00 AM, [address] [place], [place] [id number], [place], [address], Insurance Providers Payer Name Payer Address Payer Phone Insured Name Patient Relati onship to Insured Coverage Start Date Coverage End Date MEDICARE Part A and B [address] [facility] [phone] [employer] self
--- OUTSIDE RECORDS SUMMARY | 2021-02-12 10:50 | CCD ---
Author Author [facility] em[facility] Organization [facility] Address Unknown Phone Unavailable Care Team Providers Care Political Analyst Name Role Phone Feliberto Gamble Unavailable PROBLEMS Type Condition ICD9-CM Code [id number] Code Onset Dates Condition S tatus W/U Status Risk SNOMED Code Notes Problem Heart murmur R01.1 Active confirmed [id number] 6 Described in past and he has minimal findings on examination. Problem Lung nodule R91.1 Active confirmed 19071511 2 Patient has a 1.3 cm right middle lobe lung nodule, spiculated, by CT scan on January 05, 2021. 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 Problem Allergic rhinitis J30.9 Active confirmed 61 [id number] Stable on intranasal steroid therapy seasonally. Problem Bariatric surgery status Z98.84 Active confirmed [id number] Had surgery in 2002; I can't recall what type but suspect it was a Mckenzie-en-Y procedure. He is doing well with normal vitamin levels and adequate nutritional status. ALLERGIES No Known Allergies ENCOUNTERS from 1950 to 2021-01-27 Encounter Location Date Provider Diagnosis [address] [phone] [place] [address] Jan, Feliberto Gamble Pleural effusion due to anot her disorder J90 and Lung nodule R91.1 IMMUNIZATIONS Vaccine Route Administration Date Status COVID-19 dose #2 given elsewhere Unspecified Unknown Jun Administered Influenza (High Dose 65 & up) IM Intramuscular Jan 11, 2015 A dministered Influenza (High Dose 65 & up) IM Intramuscular Feb 13, 2016 A dministered Influenza Pharmacy Given Unknown Jan 06, 2020 Adminis tered Influenza Pharmacy Given Unknown Dec 11, 2020 Adminis tered COVID-19 dose #1 given elsewhere Unspecified Unknown May 14, 2020 Administered Influenza 6mo & up Fluzone Unknown Jan 14, 2014 Admin istered Influenza (High Dose 65 & up) Unknown Jan 09, 2018 Ad ministered Influenza (High Dose 65 & up) Unknown Feb 14, 2017 Ad ministered Zoster 0.65mL Zostavax Unknown June 17, 2011 [...] smoked? > 10 years REASON FOR REFERRAL from 1950 to 2021-01-27 Reason I saw this patient in [facility] follow-up today and he is moderately dyspneic due to his large left pleural effusion|He tells me that you have arranged for thoracentesis. He has not yet heard and therefore I took the liberty of trying to arrange that|I ordered cytology on the fluid since I see it was not done in the hospital|Are there any other studies you want on the fluid? Diagnosis 1 Pleural effusion due to anot her disorder (J90) Referral Organization [facility] Dona Referring Provider First Name Feliberto Referring Provider Last Name Mavis Referring Provider Specialty Family Medicine Referred Provider [facility] Referred Provider Specialty Pulmonary Diseases Referral Priority Urgent Referral Appointment Date 2021-02-05 General Notes Pietro Lloyd 01/22/2021 5 :13:36 PM > Sent VITAL SIGNS Weight 238.2 lbs Jan, Height 66.5 in Jan, BMI 37.87 kg/m2 Jan, Heart Rate 100 /min Jan, Respiratory Rate 20 /min Jan, Temperature 97.9 degrees Fahrenheit Jan, Oximetry 97% Jan, Blood pressure systolic 118 mm Hg Jan, Blood pressure diastolic 76 mm Hg Jan, MEDICATIONS Medication SIG (Take, Route, Frequency, Duration) Notes Start Da te End Date Status Viactiv 500-500-40 MG-UNT-MCG 1 tablet with a meal Ora lly Twice a day for 100 days Active traMADol HCl 50 MG 1 tablet Orally Every 4 hours as needed for pain for 5 days Jan, Active Multiple Vitamin _ 2 tablets Orally Once a day for 100 days Active MiraLax 17 GM 1 packet mixed with 8 ounces of fluid Orally Once a day for 30 day(s) on hospital discharge 01/06/21 Jan, Ac tive Vitamin D 2000 UNIT 1 tablet Orally Twice a day for 225 days Active Ondansetron HCl 4 MG 1 tablet Orally every 6 hours as needed Jan, Active Cyanocobalamin 1000 MCG 1 cap Orally once daily Active Docusate Sodium 100 MG 1 capsule as needed Orally Once a day for 30 day(s) on hospital discharge 01/06/21 Jan, Active PROCEDURES No Information RESULTS No Results REASON FOR VISIT TCM/ACO 14 [facility] Hospital follow up-Admitted 01/04-01/06/2021; Pleural effusion w ith atelectasis of the left lung, pneumonia, constipation, iSTOP Reference #[id number] MEDICAL (GENERAL) HISTORY Type Description Date Medical History Allergic rhinitis Medical History Bariatric surgery status Surgical History Appendectomy 11/1979 Surgical History Bariatric Surgery 03/2003 Surgical History Colonoscopy 06/2004 Surgical History Colonoscopy 10/2015 Surgical History Thorancentesis with pigtail catheter left in place ([facility] Inpatient) 01/05/2021 Hospitalization History [facility]- Pleural effusion with a telectasis of the left lung, pneumonia, constipation 01/04-01/06/2021 Goals Section No Information Health Concerns No Information MEDICAL EQUIPMENT No Information MENTAL STATUS No Information FUNCTIONAL STATUS No Information ASSESSMENTS Encounter Date Diagnosis Assessment Notes Treatment Notes Treatm ent Clinical Notes Jan, Lung nodule (ICD-10 - R91.1) Patient has a 1.3 cm right middle lobe lung nodule, spiculated, by CT scan on January 05, 2021. 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 Jan, Pleural effusion due to another disorder (ICD-10 - J90) The patient had an exudative pleural effusion without associated pneumonia as of late December 2020. This was drained via thoracentesis and pigtail catheter, with about 2000 cc total drained. This has now reaccumulated as of January 17, 2021 chest x-ray and he is pending another thoracentesis hopefully with cytology this time. He is also going to have a PET scan to evaluate a 1.3 cm right middle l obe nodule which is spiculated and suspicious for cancer. 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 He has not yet heard and therefore I took the liberty of trying to arrange that|I ordered cytology on the fluid since I see it was not done in the hospital|Are there any other studies you want on the fluid?, [facility] Next Appt Details 2 Months Reason: Provider Name:Feliberto Gamble, 2021-04-03 09 :00:00 AM, [address] [place] [address] , [place], [address], Provider Name:Feliberto Gamble, 2021-06-25 07 :30:00 AM, [address] [facility], , [place], [address], Insurance Providers Payer Name Payer Address Payer Phone Insured Name Patient Relati onship to Insured Coverage Start Date Coverage End Date MEDICARE Part A and B [address] [facility] [address] [phone] [employer]OR[employer] self"
--- OUTSIDE RECORDS SUMMARY | 2021-02-12 10:50 | CCD | Continuity of Care Document ---
Author Eric Ellison M.D. Organization Unknown Address [address] [place] [address] Phone [phone] Care Team Providers Care Communications Specialist Name Role Phone Feliberto Gamble M.D. AUTM [phone] Problems Description No Information Available Social History Type Date Description Comments Sex Unknown Tobacco Use Start: 04/07/88 End: 04/07/90 Patient is a forme r smoker 5 cigars daily never cigarettes Smoking Status Reviewed: 02/05/21 Patient is a former smoker 5 cigars [...] 2 tab by mouth every day Unknown Tramadol HCL 50mg Tablets 1 tab by mouth every day every morning Unknown 00 Percocet 5-325mg Tablets 1 tab by mouth at bedtime Unknown Lisinopril 20mg Tablets 1 tab by mouth every day Unknown Senna 8.6mg Capsules 1 tab by mouth as needed Unknown Immunizations CPT Code Status Date Vaccine Lot # [id number] Given 01/09/2021 Pneumococcal PPSV23 96549 Given 01/02/2021 Flublock, Quadrivalent 84466 Given 06/11/2020 Moderna Covid-19 vaccine, mRNA, LNP-S, PF, 100 mcg/ 0.5 mL 77060 Given 05/14/2020 Moderna Covid-19 vaccine, mRNA, LNP-S, PF, 100 mcg/ 0.5 mL Vital Signs Date Vital Result Comment 02/05/2021 9:34am BP Systolic 150 mmHg BP Diastolic 80 mmHg Heart Rate 94 /min O2 % BldC Oximetry 96 % Room Air Height 65 inches 5'5" Weight 231.00 lb BMI (Body Mass Index) 38.4 kg/m2 [place] Body Weight 136 lb Weight 104.782 kg BSA (Body Surface Area) 2.10 m2 01/17/2021 3:15pm BP Systolic 160 mmHg BP Diastolic 96 mmHg Heart Rate 102 /min O2 % BldC Oximetry 96 % Room Air Height 65 inches 5'5" Weight 238.00 lb BMI (Body Mass Index) 39.6 kg/m2 [place] Body Weight 136 lb Weight 107.957 kg BSA (Body Surface Area) 2.13 m2 Results Description No Information Available Procedures Date Code Description Status 01/17/2021 95618 Office/Outpatient Established Mo d MDM 30-39 Min Completed 01/06/2021 15392 Hospital Subsequent Care Level 2 Completed 01/05/2021 08959 Hospital Subsequent Care Level 2 Completed Medical Devices Description No Information Available Encounters Type Date Location Provider Dx Diagnosis Office Visit 01/17/2021 3:15p [facility] Erik Jordan M.D. R91.8 Other nonspecific abnormal f inding of lung field J90 Pleural effusion, not elsewh ere classified Office Visit 01/06/2021 1:23a [facility] Erik Jordan M.D. J90 Pleural effusion, not elsewh ere classified R91.8 Other nonspecific abnormal f inding of lung field Office Visit 01/05/2021 1:23a [facility] Erik Jordan M.D. J90 Pleural effusion, not elsewh ere classified R91.8 Other nonspecific abnormal f inding of lung field Assessments Date Code Description Provider 01/17/2021 R91.8 Other nonspecific abnormal findi ng of lung field Rohan Jordan M.D. 01/17/2021 J90 Pleural effusion, not elsewhere classified Rohan Jordan M.D. 01/06/2021 J90 Pleural effusion, not elsewhere classified Rohan Jordan M.D. 01/06/2021 R91.8 Other nonspecific abnormal findi ng of lung field Rohan Jordan M.D. 01/05/2021 J90 Pleural effusion, not elsewhere classified Rohan Jordan M.D. 01/05/2021 R91.8 Other nonspecific abnormal findi ng of lung field Rohan Jordan M.D. Plan of Treatment No Information Available Functional Status Description No Information Available Mental Status Description No Information Available Referrals Description No Information Available
--- OUTSIDE RECORDS SUMMARY | 2021-02-12 10:51 | CCD ---
Author Author [facility] Organization [facility] Address Unknown Phone Unavailable Care Team Providers Care Etl Architect Name Role Phone Liudmila THOMPSON MD Unavailable [...] is protected by Article 27-F of the [facility] Public Health law. If you continue you may have access to information: Regarding HIV / AIDS; Provided by facilities licensed or operated by the [facility] Office of Mental Health; or Provided by the [facility] Office for People With Developmental Disabilities. If such information is present, then the following [facility] mandated warning applies: This information has been [...] law may result in a fine or assisted sentence or both. A general authorization for the release of medical or other information is NOT sufficient authorization for further disc losure. Family History Family Member Name Family Member Gender Family Member Status Date o f Status Description Data Source(s) Unknown Unknown Problem MEDENT ([facility]) Encounters Encounter Providers Location Date Indications Data Source(s ) [place] [address] [facility] [address] 01/31/2021 12:00:00 AM EDT eCW1 ([facility]) Outpatient [address] [facility] [place] [address] 01/22/2021 12:00:00 AM EDT eCW1 ([facility]) Outpatient Attender: TYLER Robert/Basil/Fracisco/ Reindl 01/17/2021 03:15:00 PM EDT MEDENT ([facility]) [place] [address] [facility] [address] 01/09/2021 12:00:00 AM EDT eCW1 ([facility]) Outpatient Attender: TYLER Robert/Basil/Fracisco/ Reindl 01/06/2021 01:23:00 AM EDT MEDENT ([facility]) Outpatient Attender: TYLER Robert/[place]akey/Fracisco/ Reindl 01/05/2021 01:23:00 AM EDT MEDENT ([facility]) [place] [address] [facility] [address] 06/26/2020 12:00:00 AM EDT eCW1 ([facility]) Immunizations Vaccine Date Status Description Data Source(s) COVID-19 VACCINE Moderna 02/05/2021 12:00:00 AM EDT completed [facility] Vaccine Series Complete: YESThis Data wa s Submitted to [facility] Via [email or web address]. pneumococcal polysaccharide PPV23 01/09/2021 03:26:00 PM EDT comple willie DEVIN ([facility], ) New in 2011. IIV4 01/02/2021 03:27:00 PM EDT completed MEDENT ([facility], ) IIV3. This is one of two codes replacing CVX 15, which is being retired. 12/11/2020 01:43:00 PM EDT completed eCW1 ([facility]) IIV3. This is one of two codes replacing CVX 15, which is being retired. 12/11/2020 01:43:00 PM EDT completed eCW1 ([facility]) Moderna Covid-19 vaccine, mRNA, LNP-S, PF, 100 mcg/ 0. 5 mL 06/11/2020 02:26:00 PM EST completed MEDENT ([facility], ) COVID-19 dose #2 given elsewhere Unspecified 06/11/2020 07:3 4:00 AM EST completed eCW1 ([facility]) COVID-19 dose #2 given elsewhere Unspecified 06/11/2020 07:3 4:00 AM EST completed eCW1 ([facility]) COVID-19 dose #2 given elsewhere Unspecified 06/11/2020 07:3 4:00 AM EST completed eCW1 ([facility]) COVID-19 dose #2 given elsewhere Unspecified 06/11/2020 07:3 4:00 AM EST completed eCW1 ([facility]) COVID-19 VACCINE Moderna 06/11/2020 12:00:00 AM EST completed [facility] Vaccine Series Complete: YESThis Data wa s Submitted to [facility] Via [email or web address]. Moderna Covid-19 vaccine, mRNA, LNP-S, PF, 100 mcg/ 0. 5 mL 05/14/2020 02:25:00 PM EST completed MEDENT ([facility], ) COVID-19 dose #1 given elsewhere Unspecified 05/14/2020 07:3 4:00 AM EST completed eCW1 ([facility]) COVID-19 dose #1 given elsewhere Unspecified 05/14/2020 07:3 4:00 AM EST completed eCW1 ([facility]) COVID-19 dose #1 given elsewhere Unspecified 05/14/2020 07:3 4:00 AM EST completed eCW1 ([facility]) COVID-19 dose #1 given elsewhere Unspecified 05/14/2020 07:3 4:00 AM EST completed eCW1 ([facility]) COVID-19 VACCINE Moderna 05/14/2020 12:00:00 AM EST completed [facility] Vaccine Series Complete: NOThis Data was Submitted to [facility] Via [employer]. IIV3. This is one of two codes replacing CVX 15, which is being retired. 01/06/2020 08:01:00 AM EDT completed eCW1 ([facility]) IIV3. This is one of two codes replacing CVX 15, which is being retired. 01/06/2020 08:01:00 AM EDT completed eCW1 ([facility]) IIV3. This is one of two codes replacing CVX 15, which is being retired. 01/06/2020 08:01:00 AM EDT completed eCW1 ([facility]) IIV3. This is one of two codes replacing CVX 15, which is being retired. 01/06/2020 08:01:00 AM EDT completed eCW1 ([facility]) INFLUENZA VACCINE QUADRIVALENT 2019- (65 YR UP)/MF59 C.1/PF 01/06/2020 12:00:00 AM EDT completed [facility] Medications Medication Brand Name Start Date Product Form Dose Route Admi nistrative Instructions Pharmacy Instructions Status Indications Reaction Description Data Source(s) tramadol hydrochloride 50 MG Oral Tablet traMADol HCl 50 MG traMADol HCl 50 MG 01/31/2021 12:00:00 AM EDT 1.0 {tablet} active traMADol HCl 50 MG eCW1 ([facility]) 50 mg 01/30/2021 12:00:00 AM EDT tablet 30 TAKE 1 TABLET BY MOUTH EVERY 6 HOURS NEEDED FOR PAIN MAXIMUM DAILY DOSE = 4 TABLETS TAKE 1 TABLET BY MOUTH EVERY 6 HOURS NEEDED FOR PAIN MAXIMUM DAILY DOSE = 4 TABLETS SOLD: 01/30/2021 [facility] 5-325 mg 01/30/2021 12:00:00 AM EDT tablet 18 TAKE 1-2 TABLETS BY MOUTH EVERY 4-6 HOURS NEEDED FOR PAIN MAXIMUM DAILY DOSE = 6 TABLETS TAKE 1-2 TABLETS BY MOUTH EVERY 4-6 HOURS NEEDED FOR PAIN MAXIMUM DAILY DOSE = 6 TABLETS SOLD: 01/30/2021 [facility] 20 mg 01/30/2021 12:00:00 AM EDT tablet 30 TAKE ONE TABLET BY MOUTH EVERY DAY TAKE ONE TABLET BY MOUTH EVERY DAY SOLD: 01/30/2021 [facility] 50 mg 01/22/2021 12:00:00 AM EDT tablet 30 TAKE ONE TABLET BY MOUTH EVERY 4 HOURS NEEDED FOR PAIN FOR 5 DAYS. MAXIMUM DAILY DOSE = 6 TAKE ONE TABLET BY MOUTH EVERY 4 HOURS NEEDED FOR PAIN FOR 5 DAYS. MAXIMUM DAILY DOSE = 6 SOLD: 01/22/2021 [facility] tramadol hydrochloride 50 MG Oral Tablet traMADol HCl 50 MG traMADol HCl 50 MG 01/22/2021 12:00:00 AM EDT 1.0 {tablet} active traMADol HCl 50 MG eCW1 ([facility]) Ondansetron 4 MG Oral Tablet Ondansetron HCl 4 MG Ondansetro n HCl 4 MG 01/09/2021 12:00:00 AM EDT 1.0 {tablet} suspende d Ondansetron HCl 4 MG eCW1 ([facility]) Ondansetron 4 MG Oral Tablet Ondansetron HCl 4 MG Ondansetro n HCl 4 MG 01/09/2021 12:00:00 AM EDT 1.0 {tablet} active Ondansetron HCl 4 MG eCW1 ([facility]) Ondansetron 4 MG Oral Tablet Ondansetron HCl 4 MG Ondansetro n HCl 4 MG 01/09/2021 12:00:00 AM EDT 1.0 {tablet} active Ondansetron HCl 4 MG eCW1 ([facility]) 4 mg 01/09/2021 12:00:00 AM EDT tablet 15 TAKE ONE TABLET BY MOUTH EVERY 6 HOURS NEEDED FOR NAUSEA TAKE ONE TABLET BY MOUTH EVERY 6 HOURS A S NEEDED FOR NAUSEA SOLD: 01/09/2021 [facility] Docusate Sodium 100 MG Oral Capsule Docusate Sodium 100 MG 1 12:00:00 AM EDT 1.0 {capsule_as_needed} active Docusate Sodium 100 MG eCW1 ([facility]) Docusate Sodium 100 MG Oral Capsule Docusate Sodium 100 MG 1 12:00:00 AM EDT 1.0 {capsule_as_needed} active Docusate Sodium 100 MG eCW1 ([facility]) 250 mg 01/06/2021 12:00:00 AM EDT tablet 8 TAKE TWO TABLETS BY MOUTH DAILY AT NOON FOR 4 DAYS TAKE TWO TABLETS BY MOUTH DAILY AT NOON FOR 4 DAYS TALYA [facility] Docusate Sodium 100 MG Oral Capsule Docusate Sodium 100 MG 1 12:00:00 AM EDT 1.0 {capsule} active Docusate S odium 100 MG eCW1 ([facility]) POLYETHYLENE GLYCOL 3350 142 MG/ML Oral Solution [Kaley lax] MiraLax 17 GM MiraLax 17 GM 01/06/2021 12:00:00 AM EDT 1.0 {packet_mixed_with_8_ou nces_of_fluid} suspended MiraLax 17 GM eCW1 ([facility]) POLYETHYLENE GLYCOL 3350 142 MG/ML Oral Solution [Kaley lax] MiraLax 17 GM MiraLax 17 GM 01/06/2021 12:00:00 AM EDT 1.0 {packet_mixed_with_8_ou nces_of_fluid} active MiraLax 17 GM eCW1 ([facility]) POLYETHYLENE GLYCOL 3350 142 MG/ML Oral Solution [Kaley lax] MiraLax 17 GM MiraLax 17 GM 01/06/2021 12:00:00 AM EDT 1.0 {packet_mixed_with_8_ou nces_of_fluid} active MiraLax 17 GM eCW1 ([facility]) Insurance Providers Payer name Policy type / Coverage type Policy ID Covered green party ID Covered green party's relationship to schmitz Policy Schmitz Plan Information [facility] [id number] 80 [id number] ANSI-Commercial [id number] ANSI-Medicare Part B [id number] ANSI-Medicare Part B [id number] ANSI-Commercial [id number] MEDICARE [id number] SP [id number] A [facility] [id number] 80 [id number] [facility] Health Care Health Maintenance Organization (HMO) [id number] [facility] [id number] SP [id number] MEDICARE [id number] SP [id number] Problems, Conditions, and Diagnoses Code Display Name Description Problem Type Effective Dates Data Source(s) R91.1 [id number] Lung nodule Problem 01/22/2021 12:00:00 AM E DT eCW1 ([facility]) Surgeries/Procedures Procedure Description Date Indications Data Source(s) OFFICE OUTPATIENT VISIT 25 MINUTES 01/17/2021 12:00:00 AM EDT MEDENT ([facility], ) [facility] CARE/DAY 25 MINUTES 01/06/2021 12:00:00 AM EDT MEDENT ([facility], ) [facility]UTES 01/05/2021 12:00:00 AM EDT [facility] ([facility]) Results ID Date Data Source [id number] 01/28/2021 01:55:00 AM EDT [facility] Name Value Range Interpretation Code Description Data Marion rce(s) Supporting Document(s) SARS coronavirus 2 RNA [Presence] in Res piratory specimen by JONI with probe detection NEGATIVE [facility] This lab was ordered by [facility] a nd reported by [facility]. ID Date Data Source [id number] 01/04/2021 02:03:00 PM EDT [facility] Name Value Range Interpretation Code Description Data Marion rce(s) Supporting Document(s) SARS coronavirus 2 RNA [Presence] in Res piratory specimen by JONI with probe detection NEGATIVE [facility] This lab was ordered by [facility] a nd reported by [facility]. Procedure Social History Code Duration Value Status Description Data Source(s ) Smoking 02/05/2021 12:00:00 AM EDT Patient is a former smoker completed Patient is a former smoker [facility] ([facility]) Smoking 01/22/2021 12:00:00 AM EDT Former Smoker completed Former Smoker eCW1 ([facility]) Smoking 01/22/2021 12:00:00 AM EDT Former Smoker completed Former Smoker eCW ([facility]) Smoking 06/26/2020 12:00:00 AM EDT Former Smoker completed Former Smoker eCW ([facility]) Smoking 06/26/2020 12:00:00 AM EDT Former Smoker completed Former Smoker eCW ([facility]) Vital Signs ID Date Data Source UNK Name Value Range Interpretation Code Description Data Source(s) Systolic blood pressure 150 mm[Hg] 150 mm[Hg] [facility] ([facility]) Diastolic blood pressure 80 mm[Hg] 80 mm[Hg] [facility] ([facility]) Heart rate 94 /min 94 /min [facility] ([facility]) Oxygen saturation in Arterial blood by Pulse oximetry 96 % 96 % [facility] ([facility]) Room Air Body height 65 [in_i] 65 [in_i] [facility] ([facility]) 5'5" Body weight 231.00 [lb_av] 231.00 [lb_av] MEDEN T ([facility]) Body mass index (BMI) [Ratio] 38.4 kg/m2 38.4 k g/m2 [facility] Stephenson body weight 136 [lb_av] 136 [lb_av] MEDEN T ([facility]) Body weight 104.782 kg 104.782 kg [facility] ([facility]) Body surface area Derived from formula 2.10 m2 2.10 m2 [facility] ([facility]) Systolic blood pressure 118 mm[Hg] 118 mm[Hg] e CW1 ([facility]) Body weight 238.2 [lb_av] 238.2 [lb_av] eCW1 ([facility]) Body height 66.5 [in_i] 66.5 [in_i] eCW1 ([facility]) Body mass index (BMI) [Ratio] 37.87 kg/m2 37.87 kg/m2 W1 ([facility]) Heart rate 100 /min 100 /min eCW1 ([facility]) Diastolic blood pressure 76 mm[Hg] 76 mm[Hg] eCW1 ([facility]) Respiratory rate 20 /min 20 /min eCW1 ([facility]) Body temperature 97.9 [degF] 97.9 [degF] eCW1 ( [facility]) Body height 65 [in_i] 65 [in_i] [facility] 5'5" Systolic blood pressure 160 mm[Hg] 160 mm[Hg] M EDENT ([facility]) Body mass index (BMI) [Ratio] 39.6 kg/m2 39.6 k g/m2 [facility] ([facility]) Stephenson body weight 136 [lb_av] 136 [lb_av] MEDEN T ([facility]) Body weight 107.957 kg 107.957 kg [facility] ([facility]) Heart rate 102 /min 102 /min [facility] ([facility]) Oxygen saturation in Arterial blood by Pulse oximetry 96 % 96 % [facility] ([facility]) Room Air Body weight 238.00 [lb_av] 238.00 [lb_av] MEDEN T ([facility]) Body surface area Derived from formula 2.13 m2 2.13 m2 MEDENT ([facility]) Diastolic blood pressure 96 mm[Hg] 96 mm[Hg] MEDENT ([facility]) Body weight 245.2 [lb_av] 245.2 [lb_av] eCW1 ([facility]) Body height 66.5 [in_i] 66.5 [in_i] eCW1 ([facility]) Body mass index (BMI) [Ratio] 38.98 kg/m2 38.98 kg/m2 W1 ([facility]) Heart rate 97 /min 97 /min eCW1 ([facility]) Respiratory rate 20 /min 20 /min eCW1 ([facility]) Body temperature 98.5 [degF] 98.5 [degF] eCW1 ( [facility]) Systolic blood pressure 120 mm[Hg] 120 mm[Hg] e CW1 ([facility]) Diastolic blood pressure 74 mm[Hg] 74 mm[Hg] eCW1 ([facility]) Patient Treatment Plan of Care Planned Activity Planned Date Details Description Data Source (s) tramadol hydrochloride 50 MG Oral Tablet 01/22/2021 12:00:00 AM EDT eCW1 ([facility])
[2021-02-12 12:15] LABS: BASO % 0.2 % (0.0-1.0); EOS # 0.1 10^3/uL (0.0-0.5); EOS % 0.7 % (0.0-3.0); HEMATOCRIT 45.9 % (42.0-52.0); HEMOGLOBIN 15.3 g/dl (13.5-17.5); LYMPH # 1.1 10^3/uL (1.5-5.0); LYMPH % 13.6 % (24.0-44.0); MEAN CORPUSCULAR HEMOGLOBIN 31.2 pg (27.0-33.0); MEAN CORPUSCULAR HGB CONC 33.3 g/dl (32.0-36.5); MEAN CORPUSCULAR VOLUME 93.5 fl (80.0-96.0); MONO # 0.9 10^3/uL (0.0-0.8); MONO % 10.7 % (2.0-8.0); NEUTROPHILS # 6.1 10^3/uL (1.5-8.5); NEUTROPHILS % 74.4 % (36.0-66.0); PLATELET COUNT, AUTOMATED 466 10^3/uL (150-450); RED BLOOD COUNT 4.91 10^6/uL (4.30-6.10); WHITE BLOOD COUNT 8.2 10^3/uL (4.0-10.0)
[2021-02-12 12:49] LABS: BLOOD UREA NITROGEN 9 MG/DL (7-18); CALCIUM LEVEL 8.8 MG/DL (8.8-10.2); CARBON DIOXIDE LEVEL 30 MEQ/L (21-32); CHLORIDE LEVEL 101 MEQ/L (98-107); CREATININE FOR GFR 0.59 MG/DL (0.70-1.30); GLOMERULAR FILTRATION RATE > 60.0 (>42); GLUCOSE, FASTING 102 MG/DL (70-100); POTASSIUM SERUM 3.7 MEQ/L (3.5-5.1); SODIUM LEVEL 138 MEQ/L (136-145)
--- NOTE | 2021-02-12 12:56 | REP ---
INDICATION: CHEST PAIN. COMPARISON: 02/05/2021 latest prior TECHNIQUE: Portable FINDINGS: The technique utilized in obtaining the radiograph has magnified the cardiac silhouette and accentuated the interstitial markings. There are left basilar opacities status quo. Since the last examination, a diffuse increase in the interstitial markings throughout the lung portillo has developed. There is unchanged left CP angle blunting and slight right CP angle blunting status quo. There is no change in the osseous structures. IMPRESSION: Chronic left basilar opacity and likely small effusions with evidence of generalized interstitial edema. <Electronically signed by Oscar Estes > 02/12/21 [id number]
--- OUTSIDE RECORDS SUMMARY | 2021-02-12 13:17 | CCD ---
Author Author [facility] Organization [facility] Address Unknown Phone Unavailable Care Team Providers Care Workforce Planner Name Role Phone Liudmila THOMPSON MD Unavailable [...] is protected by Article 27-F of the [facility] Public Health law. If you continue you may have access to information: Regarding HIV / AIDS; Provided by facilities licensed or operated by the [facility] Office of Mental Health; or Provided by the [facility] Office for People With Developmental Disabilities. If such information is present, then the following [facility] mandated warning applies: This information has [...] law may result in a fine or shelter sentence or both. A general authorization for the release of medical or other information is NOT sufficient authorization for further disc losure. Family History Family Member Name Family Member Gender Family Member Status Date o f Status Description Data Source(s) Unknown Unknown Problem MEDENT ([facility]) Encounters Encounter Providers Location Date Indications Data Source(s ) Unknown [address] [facility] [address] 01/31/2021 12:00:00 AM EDT eCW1 ([facility]) Outpatient [address] [facility] [place] [address] 01/22/2021 12:00:00 AM EDT eCW1 ([facility]) Outpatient Attender: TYLER Robert/Bas[place]/ [place]indl 01/17/2021 03:15:00 PM EDT MEDENT ([facility]) Unknown [address] [facility] [address] 01/09/2021 12:00:00 AM EDT eCW1 ([facility]) Outpatient Attender: TYLER Robert/Basil/Frac[place]/ Reindl 01/06/2021 01:23:00 AM EDT MEDENT ([facility]) Outpatient Attender: TYLER Robert/[place]/Fracisco/ Reindl 01/05/2021 01:23:00 AM EDT MEDENT ([facility]) Outpatient [address] [facility] [address] 06/26/2020 12:00:00 AM EDT eCW1 ([facility]) Immunizations Vaccine Date Status Description Data Source(s) COVID-19 VACCINE Moderna 02/05/2021 12:00:00 AM EDT completed [facility] Vaccine Series Complete: YESThis Data wa s Submitted to [facility] Via [email or web address]. pneumococcal polysaccharide PPV23 01/09/2021 03:26:00 PM EDT comple willie DEVIN ([facility], ) New in 2011. IIV4 01/02/2021 03:27:00 PM EDT completed MEDENT ([facility], ) IIV3. This is one of two codes replacing CVX 15, which is being retired. 12/11/2020 01:43:00 PM EDT completed eCW1 ([facility]) IIV3. This is one of two codes replacing CVX 15, which is being retired. 12/11/2020 01:43:00 PM EDT completed eCW1 ([facility]) Moderna Covid-19 vaccine, mRNA, LNP-S, PF, 100 mcg/ 0. 5 mL 06/11/2020 02:26:00 PM EST completed MEDENT ([facility], ) COVID-19 dose #2 given elsewhere Unspecified 06/11/2020 07:3 4:00 AM EST completed eCW1 ([facility]) COVID-19 dose #2 given elsewhere Unspecified 06/11/2020 07:3 4:00 AM EST completed eCW1 ([facility]) COVID-19 dose #2 given elsewhere Unspecified 06/11/2020 07:3 4:00 AM EST completed eCW1 ([facility]) COVID-19 dose #2 given elsewhere Unspecified 06/11/2020 07:3 4:00 AM EST completed eCW1 ([facility]) COVID-19 VACCINE Moderna 06/11/2020 12:00:00 AM EST completed [facility] Vaccine Series Complete: YESThis Data wa s Submitted to [facility] Via [email or web address]. Moderna Covid-19 vaccine, mRNA, LNP-S, PF, 100 mcg/ 0. 5 mL 05/14/2020 02:25:00 PM EST completed MEDENT ([facility], ) COVID-19 dose #1 given elsewhere Unspecified 05/14/2020 07:3 4:00 AM EST completed eCW1 ([facility]) COVID-19 dose #1 given elsewhere Unspecified 05/14/2020 07:3 4:00 AM EST completed eCW1 ([facility]) COVID-19 dose #1 given elsewhere Unspecified 05/14/2020 07:3 4:00 AM EST completed eCW1 ([facility]) COVID-19 dose #1 given elsewhere Unspecified 05/14/2020 07:3 4:00 AM EST completed eCW1 ([facility]) COVID-19 VACCINE Moderna 05/14/2020 12:00:00 AM EST completed [facility] Vaccine Series Complete: NOThis Data was Submitted to [facility] Via [employer]. IIV3. This is one of two codes replacing CVX 15, which is being retired. 01/06/2020 08:01:00 AM EDT completed eCW1 ([facility]) IIV3. This is one of two codes replacing CVX 15, which is being retired. 01/06/2020 08:01:00 AM EDT completed eCW1 ([facility]) IIV3. This is one of two codes replacing CVX 15, which is being retired. 01/06/2020 08:01:00 AM EDT completed eCW1 ([facility]) IIV3. This is one of two codes replacing CVX 15, which is being retired. 01/06/2020 08:01:00 AM EDT completed eCW1 ([facility]) INFLUENZA VACCINE QUADRIVALENT 2019- (65 YR UP)/MF59 C.1/PF 01/06/2020 12:00:00 AM EDT completed [facility] Medications Medication Brand Name Start Date Product Form Dose Route Admi nistrative Instructions Pharmacy Instructions Status Indications Reaction Description Data Source(s) tramadol hydrochloride 50 MG Oral Tablet traMADol HCl 50 MG traMADol HCl 50 MG 01/31/2021 12:00:00 AM EDT 1.0 {tablet} active traMADol HCl 50 MG eCW1 ([facility]) 50 mg 01/30/2021 12:00:00 AM EDT tablet [...] {tablet} active traMADol HCl 50 MG eCW1 ([facility]) Ondansetron 4 MG Oral Tablet Ondansetron HCl 4 MG Ondansetro n HCl 4 MG 01/09/2021 12:00:00 AM EDT 1.0 {tablet} suspende d Ondansetron HCl 4 MG eCW1 ([facility]) Ondansetron 4 MG Oral Tablet Ondansetron HCl 4 MG Ondansetro n HCl 4 MG 01/09/2021 12:00:00 AM EDT 1.0 {tablet} active Ondansetron HCl 4 MG eCW1 ([facility]) Ondansetron 4 MG Oral Tablet Ondansetron HCl 4 MG Ondansetro n HCl 4 MG 01/09/2021 12:00:00 AM EDT 1.0 {tablet} active Ondansetron HCl 4 MG eCW1 ([facility]) 4 mg 01/09/2021 12:00:00 AM EDT tablet 15 TAKE ONE TABLET BY MOUTH EVERY 6 HOURS NEEDED FOR NAUSEA TAKE ONE TABLET BY MOUTH EVERY 6 HOURS A S NEEDED FOR NAUSEA SOLD: 01/09/2021 [facility] Docusate Sodium 100 MG Oral Capsule Docusate Sodium 100 MG 1 12:00:00 AM EDT 1.0 {capsule_as_needed} active Docusate Sodium 100 MG eCW1 ([facility]) Docusate Sodium 100 MG Oral Capsule Docusate Sodium 100 MG 1 12:00:00 AM EDT 1.0 {capsule_as_needed} active Docusate Sodium 100 MG eCW1 ([facility]) 250 mg 01/06/2021 12:00:00 AM EDT tablet 8 TAKE TWO TABLETS BY MOUTH DAILY AT NOON FOR 4 DAYS TAKE TWO TABLETS BY MOUTH DAILY AT NOON FOR 4 DAYS TALYA [facility] Docusate Sodium 100 MG Oral Capsule Docusate Sodium 100 MG 1 12:00:00 AM EDT 1.0 {capsule} active Docusate S odium 100 MG eCW1 ([facility]) POLYETHYLENE GLYCOL 3350 142 MG/ML Oral Solution [Kaley lax] MiraLax 17 GM MiraLax 17 GM 01/06/2021 12:00:00 AM EDT 1.0 {packet_mixed_with_8_ou nces_of_fluid} suspended MiraLax 17 GM eCW1 ([facility]) POLYETHYLENE GLYCOL 3350 142 MG/ML Oral Solution [Kaley lax] MiraLax 17 GM MiraLax 17 GM 01/06/2021 12:00:00 AM EDT 1.0 {packet_mixed_with_8_ou nces_of_fluid} active MiraLax 17 GM eCW1 ([facility]) POLYETHYLENE GLYCOL 3350 142 MG/ML Oral Solution [Kaley lax] MiraLax 17 GM MiraLax 17 GM 01/06/2021 12:00:00 AM EDT 1.0 {packet_mixed_with_8_ou nces_of_fluid} active MiraLax 17 GM eCW1 ([facility]) Insurance Providers Payer name Policy type / Coverage type Policy ID Covered democrat ID Covered democrat's relationship to schmitz Policy Schmitz Plan Information [facility] [id number] 80 [id number] ANSI-Commercial [id number] ANSI-Medicare Part B [id number] ANSI-Medicare Part B [id number] ANSI-Commercial [id number] MEDICARE [id number] SP [id number] A [facility] [id number] 80 [id number] [facility] Health Care Health Maintenance Organization (HMO) [id number] [facility] [id number] SP [id number] MEDICARE [id number] SP [id number] Problems, Conditions, and Diagnoses Code Display Name Description Problem Type Effective Dates Data Source(s) R91.1 [id number] Lung nodule Problem 01/22/2021 12:00:00 AM E DT eCW1 ([facility]) Surgeries/Procedures Procedure Description Date Indications Data Source(s) OFFICE OUTPATIENT VISIT 25 MINUTES 01/17/2021 12:00:00 AM EDT MEDENT ([facility], ) [facility] HOSPITAL CARE/DAY 25 MINUTES 01/06/2021 12:00:00 AM EDT MEDENT ([facility], ) [facility] 25 MINUTES 01/05/2021 12:00:00 AM EDT [facility] ([facility]) Results ID Date Data Source [id number] 01/28/2021 01:55:00 AM EDT [facility] Name Value Range Interpretation Code Description Data Marion rce(s) Supporting Document(s) SARS coronavirus 2 RNA [Presence] in Res piratory specimen by JONI with probe detection NEGATIVE [facility] This lab was ordered by [facility] a nd reported by [facility]. ID Date Data Source [id number] 01/04/2021 02:03:00 PM EDT [facility] Name Value Range Interpretation Code Description Data Marion rce(s) Supporting Document(s) SARS coronavirus 2 RNA [Presence] in Res piratory specimen by JONI with probe detection NEGATIVE [facility] This lab was ordered by [facility] a nd reported by [facility]. Procedure Social History Code Duration Value Status Description Data Source(s ) Smoking 02/05/2021 12:00:00 AM EDT Patient is a former smoker completed Patient is a former smoker [facility] ([facility]) Smoking 01/22/2021 12:00:00 AM EDT Former Smoker completed Former Smoker eCW1 ([facility]) Smoking 01/22/2021 12:00:00 AM EDT Former Smoker completed Former Smoker eCW ([facility]) Smoking 06/26/2020 12:00:00 AM EDT Former Smoker completed Former Smoker eCW ([facility]) Smoking 06/26/2020 12:00:00 AM EDT Former Smoker completed Former Smoker eCW ([facility]) Vital Signs ID Date Data Source UNK Name Value Range Interpretation Code Description Data Source(s) Systolic blood pressure 150 mm[Hg] 150 mm[Hg] [facility] ([facility]) Diastolic blood pressure 80 mm[Hg] 80 mm[Hg] [facility] ([facility]) Heart rate 94 /min 94 /min [facility] ([facility]) Oxygen saturation in Arterial blood by Pulse oximetry 96 % 96 % [facility] ([facility]) Room Air Body height 65 [in_i] 65 [in_i] [facility] ([facility]) 5'5" Body weight 231.00 [lb_av] 231.00 [lb_av] MEDEN T ([facility]) Body mass index (BMI) [Ratio] 38.4 kg/m2 38.4 k g/m2 [facility] [place] body weight 136 [lb_av] 136 [lb_av] MEDEN T ([facility]) Body weight 104.782 kg 104.[address] [facility] ([facility]) Body surface area Derived from formula 2.10 m2 2.[address] [facility] ([facility]) Body weight 238.2 [lb_av] 238.2 [lb_av] eCW1 ([facility]) Body height 66.5 [in_i] 66.5 [in_i] eCW1 ([facility]) Body mass index (BMI) [Ratio] 37.87 kg/m2 37.87 kg/m2 eCW1 ([facility]) Heart rate 100 /min 100 /min eCW1 ([facility]) Respiratory rate 20 /min 20 /min eCW1 ([facility]) Body temperature 97.9 [degF] 97.9 [degF] eCW1 ( [facility]) Systolic blood pressure 118 mm[Hg] 118 mm[Hg] e CW1 ([facility]) Diastolic blood pressure 76 mm[Hg] 76 mm[Hg] eCW1 ([facility]) Body height 65 [in_i] 65 [in_i] [facility] 5'5" Systolic blood pressure 160 mm[Hg] 160 mm[Hg] M EDENT ([facility]) Body mass index (BMI) [Ratio] 39.6 kg/m2 39.6 k g/m2 [facility] ([facility]) [place] body weight 136 [lb_av] 136 [lb_av] MEDEN T ([facility]) Body weight 107.957 kg 107.[address] [facility] ([facility]) Heart rate 102 /min 102 /min [facility] ([facility]) Oxygen saturation in Arterial blood by Pulse oximetry 96 % 96 % [facility] ([facility]) Room Air Body weight 238.00 [lb_av] 238.00 [lb_av] MEDEN T ([facility]) Body surface area Derived from formula 2.13 m2 2.13 m2 MEDENT ([facility]) Diastolic blood pressure 96 mm[Hg] 96 mm[Hg] MEDENT ([facility]) Body weight 245.2 [lb_av] 245.2 [lb_av] eCW1 ([facility]) Body height 66.5 [in_i] 66.5 [in_i] eCW1 ([facility]) Body mass index (BMI) [Ratio] 38.98 kg/m2 38.98 kg/m2 W1 ([facility]) Heart rate 97 /min 97 /min eCW1 ([facility]) Respiratory rate 20 /min 20 /min eCW1 ([facility]) Body temperature 98.5 [degF] 98.5 [degF] eCW1 ( [facility]) Systolic blood pressure 120 mm[Hg] 120 mm[Hg] e CW1 ([facility]) Diastolic blood pressure 74 mm[Hg] 74 mm[Hg] eCW1 ([facility]) Patient Treatment Plan of Care Planned Activity Planned Date Details Description Data Source (s) tramadol hydrochloride 50 MG Oral Tablet 01/22/2021 12:00:00 AM EDT eCW1 ([facility])
[2021-02-12 13:29] VITALS: BP 161/91
--- NOTE | 2021-02-13 06:30 | ECGEPIP ---
[facility] - ED Test Date: 2021-02-12 Pat Name: DELORES DAY Department: Room: - Gender: Male Ad Operations Associate: JARROD : 1950 Requested By: ALYCE Hargrove Order Number: [id number] Reading MD: Antoine Arrieta Measurements Intervals [place] Rate: 111 P: 44 ND: 124 QRS: 19 QRSD: 86 T: 61 QT: 350 QTc: 476 Interpretive Statements Sinus tachycardia with premature atrial complexes Septal infarct , age undetermined Nonspecific ST T wave changes cw 01/28/21 no more lead displacement rate increased Nonspecific ST T wave changes more ectopy Electronically Signed on 02-13-2021 6:30:33 EST by Antoine Arrieta
== END 2021-02-12 13:40 | disposition home or self-care (01) ==
LOC: M ED 10:45
DX: R07.9 Chest pain, unspecified (principal); R00.0 Tachycardia, unspecified; C34.90 Malignant neoplasm of unspecified part of unspecified bronchus or lung; I10 Essential (primary) hypertension; M54.50 Low back pain, unspecified; Z87.891 Personal history of nicotine dependence; Z79.899 Other long term (current) drug therapy

== ENCOUNTER → 2021-02-26 | Outpatient (CLI) | payer MEDICARE ==
--- NOTE | 2021-02-27 11:04 | REP ---
INDICATION: RESTAGING RIGHT LUNG CANCER C34.81. COMPARISON: Prior CT examinations of the chest 01/28/2021 and 01/30/2021. There are no prior PET CTs for comparison. TECHNIQUE: After the intravenous administration of 9.36 mCi of FDG 18 triplane whole-body PET-CT was performed from the skull base to the mid thigh. FINDINGS: There is hypermetabolic left hilar adenopathy with concomitant left hilar soft tissue also hypermetabolic having a maximal SUV value of 5.4. There is additional hypermetabolic folic activity seen in the marcos with adenopathy and having a maximal SUV value of 5.56. Nonenlarged hypermetabolic right hilar lymph nodes are suspected but difficult to discern from normal vascular activity. The maximal SUV value is 3.6. There is multifocal hypermetabolic activity seen throughout the left lung particularly in the lung base region and seen in conjunction with abnormal pleural hypermetabolic activity throughout the left lower lobe. The pleural hypermetabolism has a maximal SUV value of 4.71 and the parenchymal hypermetabolism has a maximal SUV value of 4.16. There are bilateral pleural effusions which have developed since the latest prior CT scan of the chest. There is a ventral hernia through which only mesentery is identified which is hypermetabolic likely secondary to inflammatory change. There is bilateral adrenal gland hypermetabolism with a maximal SUV value on the right of 2.77 and on the left of 3.46. There is hypermetabolic activity seen surrounding the entrance of the left-sided thoracotomy tube. This is not unusual. There is diffuse scattered multifocal hypermetabolism seen in the axial and appendicular skeleton the greatest degree of axial skeletal hypermetabolism is seen in T12 with a maximal SUV value of 6.29 and in S2 with a maximal SUV value of 5.13 the maximal appendicular skeletal uptake is in the proximal left femur with a maximal SUV value of 6.14. There is multifocal rib hypermetabolism. IMPRESSION: 1. Hypermetabolic adenopathy in the chest as described above. 2. Hypermetabolic activity seen in the left hemithorax as described above. 3. Bilateral adrenal gland hypermetabolism as described above. Metastatic disease cannot be ruled out. Non malignant hypermetabolism can also be seen in adrenal gland hyperplasia and adrenal gland adenomas. 4. Diffuse skeletal metastasis as described above. 5. Other findings as described above. <Electronically signed by Oscar Estes > 02/27/21 1100
== END ==
LOC: M PLARAD 14:46
PROVIDERS: ATTEND Internal Medicine Medical Oncology
DX: C34.81 Malignant neoplasm of overlapping sites of right bronchus and lung (principal)
CPT/HCPCS: 78815; A9552

== ENCOUNTER 2021-03-05 13:28 | Inpatient (IN) | payer MEDICARE, MEDICAID ==
[~2021-03-05] VITALS: Ht 167.6 cm; Wt 100.0 kg
[~2021-03-05 13:28] MED LIST changes: +ALKATAB22 PO; +OMEP40CA4 PO
[2021-03-05] MEDS ORDERED: MOM 30ML SUSPENSION UDC PO PRN (16:10)
[2021-03-05] MEDS ORDERED: MAALOX 30 ML SUSP *UDC PO PRN (16:10)
[2021-03-05] MEDS ORDERED: ACETAMINOPHEN TAB 650MG DOSE (2X325MG) PO PRN ×2 (16:10→17:05)
[2021-03-05] MEDS ORDERED: LISI10TA22 PO (16:20)
[2021-03-05] MEDS ORDERED: CITA20TA7 PO (16:20)
[2021-03-05] MEDS ORDERED: FURO40TA2 PO (16:20)
[2021-03-05] MEDS ORDERED: TRAZ-252 PO (16:20)
[2021-03-05] MEDS ORDERED: MORPHINE 2 MG/ML 1ML VIAL (J2270) IV PRN (17:05)
[2021-03-05] MEDS ORDERED: LORazepam 2 MG/ML VIAL IV PRN (17:05)
[2021-03-05] MEDS ORDERED: BISACODYL 10 MG SUPP PR PRN (17:05)
[2021-03-05] MEDS ORDERED: ATROPINE SULFATE 1% OP SOLN 2 ML BTL SL PRN (17:05)
[2021-03-05] MEDS ORDERED: SCOPOLAMINE 1MG TRANSDERMAL PATCH TOP PRN (17:05)
[2021-03-05] MEDS ORDERED: MORPHINE 10MG/0.5ML ORAL CONCENTRATE SOLUTION U/D SL PRN (17:05)
[2021-03-05] MEDS ORDERED: FLEET ENEMA PR PRN (17:05)
[2021-03-05] MEDS ORDERED: ONDANSETRON 4 MG ORAL DISINTEGRATING TAB PO PRN (17:05)
[2021-03-05] MEDS ORDERED: ONDANSETRON 4MG/2ML VIAL IV PRN (17:05)
[2021-03-05] MEDS ORDERED: HYOSCYAMINE SULFATE 0.125 MG SUBL TABLET PO PRN (17:05)
[2021-03-05] MEDS ORDERED: TRAM50TA2 PO (17:15)
[2021-03-05] MEDS ORDERED: DOCU100C16 PO (17:15)
[2021-03-05] MEDS ORDERED: HOME MED LIST COMPLETE! XX SCH (17:15)
[2021-03-05] MEDS ORDERED: ALBUTEROL SULFATE 2.5 MG/0.5 ML INH NEB SOLN NEB PRN (19:50)
[2021-03-05] MEDS: LORazepam 1 MG TAB PO PRN (23:56)
[2021-03-05] MEDS: traMADol 50 MG TAB PO PRN (23:57)
[2021-03-06] MEDS: CitaloPRAM (CeleXA) 20 MG TAB PO SCH (09:31)
[2021-03-06] MEDS: OMEPRAZOLE 20MG CAP PO SCH (09:31)
[2021-03-06] MEDS: SENOKOT S TAB PO SCH ×2 (10:21→21:05)
[2021-03-06] MEDS: MIRALAX *UNIT DOSE* 17GM PACKET PO SCH (10:21)
[2021-03-06] MEDS: LORazepam 1 MG TAB PO PRN (21:06)
[2021-03-06] MEDS: traMADol 50 MG TAB PO PRN (21:07)
[2021-03-07] MEDS: LORazepam 1 MG TAB PO PRN ×2 (02:47→09:08)
[2021-03-07] MEDS ORDERED: HYOS125TA PO (09:01)
[2021-03-07] MEDS ORDERED: MORP1SOL5 PO (09:01)
[2021-03-07] MEDS ORDERED: MIRA1POW3 PO (09:01)
[2021-03-07] MEDS ORDERED: ATIV1TAB10 PO (09:01)
[2021-03-07] MEDS: CitaloPRAM (CeleXA) 20 MG TAB PO SCH (09:08)
[2021-03-07] MEDS: SENOKOT S TAB PO SCH (09:08)
[2021-03-07] MEDS: MIRALAX *UNIT DOSE* 17GM PACKET PO SCH (09:08)
[2021-03-07] MEDS: OMEPRAZOLE 20MG CAP PO SCH (09:08)
[2021-03-07] MEDS ORDERED: CITA20TA7 PO (11:28)
[2021-03-07] MEDS ORDERED: TRAZ-252 PO (11:28)
== END 2021-03-07 11:45 | disposition hospice, inpatient (51) | DRG 951 ==
LOC: M MSPAV 15:10
PROVIDERS: ADMIT Family Medicine; ATTEND Internal Medicine Nephrology
DX: Z51.5 Encounter for palliative care (principal); J96.01 Acute respiratory failure with hypoxia; C34.92 Malignant neoplasm of unspecified part of left bronchus or lung; C79.51 Secondary malignant neoplasm of bone; J91.0 Malignant pleural effusion; I10 Essential (primary) hypertension; F32.A Depression, unspecified; Z87.891 Personal history of nicotine dependence; Z98.84 Bariatric surgery status; Z90.49 Acquired absence of other specified parts of digestive tract; Z66 Do not resuscitate; Z79.899 Other long term (current) drug therapy; K59.00 Constipation, unspecified